=== PATIENT | female | born 1930 | race Caucasian/White ===

== ENCOUNTER 2018-03-16 15:33 | Inpatient (IN) ==
--- NOTE | 2018-03-16 15:50 | Emergency Department Note ---
Disposition Clinical Impression: Upper gastrointestinal hemorrhage Disposition: Admitted As Inpatient Time of Disposition: 18:22 General Adult HPI - General Chief complaint: ED GI Bleed Stated complaint: Poss GI Bleed Time Seen by Provider: 03/16/18 15:36 Source: EMS Mode of arrival: EMS Limitations: language barrier (non verbal ) Nursing Notes Reviewed: Yes Vital Signs Reviewed: Yes - History of Present Illness HPI Narrative: 88 year old woman with pmh significant remote CVA who is non verbal. Hx comes from EMS mostly. She had one episode of liquid stool this morning which was described as "chocolate pudding with a GI smell" and sent here from [facility] for concern of GI bleed. She was diagnosed with colitis on 03/08/18 and placed on augmentin which she still has 2 more days of. Pt Subjective Complaint: non verbal Onset (ago): hour(s) Treatments Prior to Arrival: none - Related Data Home Medications Medication Instructions Recorded Confirmed Calcium Carbonate [Calcium] 600 mg PO BID 07/20/15 10/09/15 Folic Acid 1 mg PO DAILY 07/20/15 10/09/15 LevETIRAcetam [Keppra] 5 ml PO BID 07/20/15 10/09/15 Loratadine [Claritin] 10 mg PO PRN PRN 07/20/15 10/09/15 PHENobarbital [Phenobarbital] 32.4 mg PO TID 07/20/15 10/09/15 Polyethylene Glycol 3350 [MiraLAX] 17 gm PO DAILY 07/20/15 10/09/15 Acetaminophen w/Cod 300-30 mg 1 each PO Q8HR 10/09/15 10/09/15 [Tylenol w/Codeine #3] Bisacodyl [Dulcolax] 10 mg RC DAILY 10/09/15 10/09/15 Carbamide Peroxide [Murine Ear 15 ml OT QMONTH 10/09/15 10/09/15 Drops] Hydrocortisone/Pramoxine [Analpram 30 gm RC QID 10/09/15 10/09/15 Hc 1% Cream] Magnesium Hydroxide [Milk of 400 mg PO DAILY 10/09/15 10/09/15 Magnesia] Multivitamin [Multivitamins] 1 each PO DAILY 10/09/15 10/09/15 Warfarin [Coumadin] 3.5 mg PO DAILY 10/09/15 10/09/15 cephALEXin [Keflex] 500 mg PO QID 10/09/15 10/09/15 Allergies Allergy/AdvReac Type Severity Reaction Status Date / Time Hydromorphone [From Dilaudid] Allergy Unknown See Verified 07/20/15 12:55 Comments phenytoin [From Dilantin] Allergy Unknown See Verified 07/20/15 12:55 Comments Tetracycline Allergy Unknown See Verified 07/20/15 12:55 Comments Limitations: ROS unobtainable due to patients medical condition (non verbal ) Past Medical History - Past Medical History Medical history: Reports: CVA, DVT, dementia, hyperlipidemia, seizures, other Surgical history: Reports: non-contributory Psychiatric history: Reports: no psych history - Social History Smoking Status: Never smoker Smokeless Tobacco Status: No Alcohol use: Reports: none Drug use: Reports: none Physical Exam - General Limitations: language barrier (non verbal) General appearance: alert, in no apparent distress - Head Head exam: atraumatic, normocephalic, normal inspection - Eye Eye exam: Present: normal appearance - ENT ENT exam: mucous membranes moist - Neck Neck exam: Present: trachea midline - Chest Chest inspection: Present: normal inspection, symmetric chest wall rise - Respiratory Respiratory exam: Present: normal lung sounds bilaterally - Cardiovascular Cardiovascular exam: Present: regular rate, normal rhythm, normal heart sounds, +S1, +S2 - Abdominal Exam Abdominal exam: Present: soft, Non-Tender. Absent: distention, guarding, rebound, rigidity - Neurological Exam Neurological exam: Present: alert - Skin Skin exam: Present: warm, dry, intact, normal color Course Course Narrative: Non verbal pt sent from [facility] for concern of GI bleed. Will do heme occult, cbc, and type and screen now. 1550: A pos blood on type and screen, maroon and bright red blood in stool when getting sample for heme occult. 1645: Stool occult blood positive, Hgb 10.4 (12.9 on 01/18), Hct 33.4 (39.3 on 01/18). Will admit to hospitalist service for EGD and GI bleed evaluation. 1730: Spoke to hospitalist service who accepted. Started protonix and GI consult. Vital Signs Temperature 97.9 F 03/16/18 15:45 Pulse Rate 100 03/16/18 15:45 Respiratory Rate 14 03/16/18 15:45 Blood Pressure 104/61 03/16/18 15:45 O2 Sat by Pulse Oximetry 98 03/16/18 15:45 Temperature 97.9 F 03/16/18 15:45 Pulse Rate 93 03/16/18 17:23 Respiratory Rate 16 03/16/18 17:23 Blood Pressure 100/47 03/16/18 17:23 O2 Sat by Pulse Oximetry 96 03/16/18 17:23 Oxygen Delivery Oxygen Delivery Room Air Medical Decision Making - Lab Data Lab results reviewed: Yes I reviewed the patient's lab results. Result diagrams: 03/16/18 15:50 03/16/18 15:50 Lab Results 03/16/18 03/16/18 03/16/18 Range/Units 15:50 15:50 15:50 WBC 12.1 H (4.3-11.1) K/mcL RBC 3.17 L (3.82-4.97) M/mcL Hgb 10.4 L (11.5-15.4) g/dL Hct 33.4 L (35.3-44.9) % MCV 105.4 H (83.0-100.0) fL MCH 32.8 (28.0-33.3) pg MCHC 31.1 L (31.6-35.5) g/dL RDW 12.8 (11.5-14.5) % Plt Count 262 (140-400) K/mcL MPV 11.4 (9.4-12.4) fL Immature Gran % 0.5 (0-4) % Seg Neutrophils % 85.9 % Lymphocytes % 10.1 % Monocytes % 2.7 % Eosinophils % 0.4 % Basophils % 0.4 % Neutrophils # 10.4 H (1.6-8.9) K/mcL Lymphocytes # 1.2 (0.6-4.6) K/mcL Monocytes # 0.3 (0.0-1.3) K/mcL Eosinophils # 0.1 (0.0-0.6) K/mcL Basophils # 0.1 (0.0-0.2) K/mcL Reactive Lymphocytes Present A (Not Present) PT 14.6 H (9.4-12.1) Seconds INR 1.3 Sodium (136-145) mEq/L Potassium (3.5-5.1) mEq/L Chloride (98-107) mEq/L Carbon Dioxide (23-29) mEq/L BUN (8-23) mg/dL Creatinine (0.60-1.20) mg/dL Est GFR ( Amer) (> 60) Est GFR (Non-Af Amer) (> 60) BUN/Creatinine Ratio (6-26) Glucose (70-105) mg/dL Calculated Osmolality (280-300) Calcium (8.6-10.3) mg/dL Total Bilirubin (0.3-1.0) mg/dL AST (13-39) Units/L ALT (7-52) Units/L Alkaline Phosphatase (34-104) Units/L Serum Total Protein (6.4-8.9) g/dL Albumin (3.5-5.7) g/dL Globulin (2.4-3.5) g/dL Albumin/Globulin Ratio (1.1-2.2) Stool Occult Bld Scrn (Negative) Blood Type A POSITIVE Antibody Screen POSITIVE 03/16/18 03/16/18 Range/Units 15:50 16:08 WBC (4.3-11.1) K/mcL RBC (3.82-4.97) M/mcL Hgb (11.5-15.4) g/dL Hct (35.3-44.9) % MCV (83.0-100.0) fL MCH (28.0-33.3) pg MCHC (31.6-35.5) g/dL RDW (11.5-14.5) % Plt Count (140-400) K/mcL MPV (9.4-12.4) fL Immature Gran % (0-4) % Seg Neutrophils % % Lymphocytes % % Monocytes % % Eosinophils % % Basophils % % Neutrophils # (1.6-8.9) K/mcL Lymphocytes # (0.6-4.6) K/mcL Monocytes # (0.0-1.3) K/mcL Eosinophils # (0.0-0.6) K/mcL Basophils # (0.0-0.2) K/mcL Reactive Lymphocytes (Not Present) PT (9.4-12.1) Seconds INR Sodium 141 (136-145) mEq/L Potassium 4.2 (3.5-5.1) mEq/L Chloride 105 (98-107) mEq/L Carbon Dioxide 30 H (23-29) mEq/L BUN 34 H (8-23) mg/dL Creatinine 0.83 (0.60-1.20) mg/dL Est GFR ( Amer) > 60 (> 60) Est GFR (Non-Af Amer) > 60 (> 60) BUN/Creatinine Ratio 41 H (6-26) Glucose 157 H (70-105) mg/dL Calculated Osmolality 303 H (280-300) Calcium 9.3 (8.6-10.3) mg/dL Total Bilirubin 0.2 L (0.3-1.0) mg/dL AST 16 (13-39) Units/L ALT 16 (7-52) Units/L Alkaline Phosphatase 58 (34-104) Units/L Serum Total Protein 5.9 L (6.4-8.9) g/dL Albumin 3.5 (3.5-5.7) g/dL Globulin 2.4 (2.4-3.5) g/dL Albumin/Globulin Ratio 1.5 (1.1-2.2) Stool Occult Bld Scrn Positive A (Negative) Blood Type Antibody Screen Attestation Statement - Attestation Attestation: I did see the patient is spoke with her and examined her. Does have a GI bleed with red stool from below which is Hemoccult positive. Patient is anticoagulated. Is admitted to the hospital. Does have anemia which is more pronounced in the past. I did review her EKG showing sinus tachycardia with rate of [address] changes but without significant arrhythmia. The case is discussed with the hospitalist who does except the patient for admission 1752 I examined this patient and my medical decision-making was reviewed with the AIR CREW MEMBER/PA/Advanced Practice Nurse/Resident Physician. I agree with the documented findings, disposition and treatment plan as described except to the extent set forth below..
[2018-03-16 16:17] LABS: Basophils # 0.1 K/mcL (0.0-0.2); Basophils % 0.4 %; Eosinophils # 0.1 K/mcL (0.0-0.6); Eosinophils % 0.4 %; Hematocrit 33.4 % (35.3-44.9); Hemoglobin 10.4 g/dL (11.5-15.4); Immature Granulocytes % 0.5 % (0-4); Lymphocytes # 1.2 K/mcL (0.6-4.6); Lymphocytes % 10.1 %; Mean Corpuscular HGB Conc 31.1 g/dL (31.6-35.5); Mean Corpuscular Hemoglobin 32.8 pg (28.0-33.3); Mean Corpuscular Volume 105.4 fL (83.0-100.0); Mean Platelet Volume 11.4 fL (9.4-12.4); Monocytes # 0.3 K/mcL (0.0-1.3); Monocytes % 2.7 %; Neutrophils # 10.4 K/mcL (1.6-8.9); Platelet Count 262 K/mcL (140-400); Red Blood Count 3.17 M/mcL (3.82-4.97); Red Cell Distribution Width 12.8 % (11.5-14.5); Segmented Neutrophils % 85.9 %
[2018-03-16 16:38] LABS: Reactive Lymphocytes Present (Not Present)
[2018-03-16] MEDS ORDERED: Pantoprazole 40 MG VIAL IVP ONE (17:06)
[2018-03-16] MEDS ORDERED: Naloxone 0.4 MG/ML INJ IVP PRN (17:37)
[2018-03-16] MEDS ORDERED: *HR* Phytonadione 10 MG/ML AMPUL SQ ONE (17:41)
[2018-03-16] MEDS ORDERED: Ondansetron 4 MG/2 ML VIAL IVP PRN (17:42)
[2018-03-16] MEDS ORDERED: Isovue-370 500 ML INFUS..BTL IV ONE (17:43)
[2018-03-16] MEDS ORDERED: D5% in Water 1,000 ML IVC PRN (17:50)
[2018-03-16] MEDS ORDERED: *HR* Dextrose 50 % in Water (Syg) 50 ML SYRINGE IVP PRN (17:50)
[2018-03-16] MEDS ORDERED: Dextrose Gel 15 GM/37.5 ML TUBE PO PRN ×2 (17:50)
[2018-03-16 17:56] LABS: Alanine Aminotransferase 16 Units/L (7-52); Albumin 3.5 g/dL (3.5-5.7); Albumin/Globulin Ratio 1.5 (1.1-2.2); Alkaline Phosphatase 58 Units/L (34-104); Aspartate Amino Transferase 16 Units/L (13-39); BUN/Creatinine Ratio 41 (6-26); Bilirubin,Total 0.2 mg/dL (0.3-1.0); Blood Urea Nitrogen 34 mg/dL (8-23); Calcium 9.3 mg/dL (8.6-10.3); Carbon Dioxide 30 mEq/L (23-29); Chloride 105 mEq/L (98-107); Globulin 2.4 g/dL (2.4-3.5); Glucose 157 mg/dL (70-105); Osmolality,Calculated 303 (280-300); Potassium 4.2 mEq/L (3.5-5.1); Sodium 141 mEq/L (136-145); Total Protein 5.9 g/dL (6.4-8.9); eGFR For Non-African Americans > 60 (> 60)
[2018-03-16 17:58] LABS: INR 1.3; Prothrombin Time 14.6 Seconds (9.4-12.1)
--- NOTE | 2018-03-16 17:59 | Internal Med History&Physical ---
<Jayne Felix - Last Filed: 03/16/18 18:24> Date of Encounter: 03/16/18 Time of Encounter: 17:57 Internal Medicine - H&P: HPI Admitted From: Long-term Nursing Facility Plans for Post Hospital Care: Transfer Audiology Doctor Care History of present illness: Ms. Almeida is a 88 year old female with pmh significant remote CVA, seizure, and chronic DVT and on Eliquis who is non verbal. Hx comes from EMS mostly. She had one episode of liquid stool this morning which was described as "chocolate pudding with a GI smell" and sent here from [facility] for concern of GI bleed. She was diagnosed with colitis on 03/08/18 and placed on augmentin which she still has 2 more days of. Upon arrival to the ED, patient blood pressure was notably low. Labs revealed H/H 10.4/33.4, INR 1.3, elevated BUN, positive guaiac stool. Surgery was consulted. Patient will be admitted as observation for further evaluation and management. Past Med Surg Social Fam HX - Past Medical History Medical history: CVA, DVT, dementia, hyperlipidemia, seizures, other Additional medical history: hemiplg flw cerebral infarct, aphasia, benign neoplasm of meninges Psychiatric history: no psych history - Past Surgical History Surgical History: non-contributory Additional surgical history: brain tumors removed; non-malignant - Social History Smoking Status: Never smoker Smokeless Tobacco Status: No Alcohol use: none Drug use: none Internal Medicine - H&P: Meds RX: Calcium Carbonate [Calcium] 600 mg PO BID 07/20/15 [History] RX: Folic Acid 1 mg PO DAILY 07/20/15 [History] RX: PHENobarbital [Phenobarbital] 32.4 mg PO TID 07/20/15 [History] Bisacodyl [Dulcolax] 10 mg RC DAILY 10/09/15 [History] Magnesium Hydroxide [Milk of Magnesia] 400 mg PO DAILY PRN 10/09/15 [History] Multivitamin [Multivitamins] 1 each PO DAILY 10/09/15 [History] Acetaminophen [Non-Aspirin] 650 mg PO Q6H 03/16/18 [History] Amoxicillin/Clavulanate [Augmentin] 875 mg PO BIDWM 03/16/18 [History] Apixaban [Eliquis] 2.5 mg PO BID 03/16/18 [History] Guaifenesin [Tussin] 100 mg PO Q4H PRN 03/16/18 [History] Hydrocortisone/Pramoxine [Analpram Hc 1% Cream] 30 gm TP QID 03/16/18 [History] Lactulose 30 ml PO DAILY 03/16/18 [History] LevETIRAcetam [Keppra] 500 mg PO BID 03/16/18 [History] Polyethylene Glycol 3350 [MiraLAX] 17 gm PO DAILY PRN 03/16/18 [History] RX: Amlodipine Besylate 2.5 mg PO DAILY 03/16/18 [History] Sennosides/Docusate Sodium [Docusate Sodium-Senna Tablet] 1 tab PO BID 03/16/18 [History] Allergy/AdvReac Type Severity Reaction Status Date / Time Hydromorphone [From Dilaudid] Allergy Unknown See Verified 03/16/18 19:14 Comments phenytoin [From Dilantin] Allergy Unknown See Verified 03/16/18 19:14 Comments Tetracycline Allergy Unknown See Verified 03/16/18 19:14 Comments All Systems PM: A 10-system review of systems was performed and is negative for pertinent findings except as documented above in the HPI. Review of systems: REVIEW OF SYSTEMS: unable to obtain due to pt mental status. - Constitutional Vitals: Temp Pulse Resp BP Pulse Ox 97.9 F 93 16 100/47 96 03/16/18 15:45 03/16/18 17:23 03/16/18 17:23 03/16/18 17:23 03/16/18 17:23 General appearance: Present: A&O X 1 Exam: PHYSICAL EXAMINATION: GENERAL APPEARANCE: The patient is alert, oriented and in no acute distress. HEENT: Head is normocephalic. The sinuses are nontender. Pupils are equal and reactive. The nares are patent. Oropharynx clear without lesions. NECK: Supple without lymphadenopathy. HEART: Regular rate and rhythm. LUNGS: No crackles or wheezes are heard. ABDOMEN: Soft, nontender, nondistended with good bowel sounds heard. Inguinal area is normal. EXTREMITIES: 1+ pitting edema BLE. NEUROLOGICAL: Gross nonfocal. SKIN: Warm and dry without any rash. Internal Med - H&P Results - Labs CBC & Chem 7: 03/16/18 15:50 03/16/18 15:50 Labs: Short CBC 03/16/18 Range/Units 15:50 WBC 12.1 H (4.3-11.1) K/mcL Hgb 10.4 L (11.5-15.4) g/dL Hct 33.4 L (35.3-44.9) % Plt Count 262 (140-400) K/mcL Neutrophils # 10.4 H (1.6-8.9) K/mcL BMP 03/16/18 15:50 Sodium 141 Potassium 4.2 Chloride 105 Carbon Dioxide 30 H BUN 34 H Creatinine 0.83 Glucose 157 H Calcium 9.3 Liver Function 03/16/18 Range/Units 15:50 Total Bilirubin 0.2 L (0.3-1.0) mg/dL AST 16 (13-39) Units/L ALT 16 (7-52) Units/L Alkaline Phosphatase 58 (34-104) Units/L Albumin 3.5 (3.5-5.7) g/dL - Assessment and plan (1) GI bleeding Current Visit: Yes Status: Acute Assessment and plan: 88-year-old female with past medical history of DVT on Coumadin/Eliquis, status post brain surgery, seizure disorder, and recent colitis presented with a reported bloody stool. Guaiac stool is positive. - H/H 10.4/33.4 upon arrival, vital signs were stable. INR 1.3. Type and cross ordered, we will continue cycle H/H every 6 hours. Transfuse if hemoglobin less than 7.0. - Patient had recent infectious colitis, she was placed on Augmentin, will change oral antibiotics to IV. - Start IV PPI. May give IV fluid if blood pressure drops. - Surgery consult. Qualifiers: GI bleed type/associated pathology: unspecified gastrointestinal hemorrhage type Qualified Code(s): K92.2 - Gastrointestinal hemorrhage, unspecified (2) Seizure disorder Current Visit: No Status: Chronic Assessment and plan: We will continue home medication phenobarbital and Keppra. (3) DVT (deep venous thrombosis) Current Visit: No Status: Chronic Assessment and plan: Hold Eliquis due to GI bleeding. Qualifiers: DVT location: upper extremity Affected thrombotic vein of extremity: unspecified vein of extremity Chronicity: chronic Laterality: unspecified laterality Qualified Code(s): I82.729 - Chronic embolism and thrombosis of deep veins of unspecified upper extremity (4) DVT prophylaxis Current Visit: Yes Status: Acute Assessment and plan: No SCDs due to unknown status of DVT. No heparin due to GI bleeding. (5) Colitis Current Visit: No Status: Chronic Assessment and plan: Change oral abx to IV. GI consult. Surgery consult. - Time Spent With Patient Total time spent is greater than 50% in coordination of care (as documented) at patient's floor/unit and/or counseling patient: Greater than 35 minutes <Jesus Gilbert Y - Last Filed: 03/17/18 07:21> Internal Medicine - H&P: HPI History of present illness: Ms. Almeida is a 88 year old female All Systems PM: A 10-system review of systems was performed and is negative for pertinent findings except as documented above in the HPI. - Constitutional Vitals: Temp Pulse Resp BP Pulse Ox 98.2 F 93 16 103/65 91 03/17/18 06:32 03/17/18 06:32 03/17/18 06:32 03/17/18 06:32 03/17/18 06:32 Internal Med - H&P Results - Labs CBC & Chem 7: 03/17/18 05:54 03/16/18 15:50 Labs: Short CBC 03/16/18 03/16/18 03/17/18 Range/Units 15:50 18:15 00:16 WBC 12.1 H 10.2 9.8 (4.3-11.1) K/mcL Hgb 10.4 L 9.6 L 9.3 L (11.5-15.4) g/dL Hct 33.4 L 30.6 L 28.6 L (35.3-44.9) % Plt Count 262 235 235 (140-400) K/mcL Neutrophils # 10.4 H 7.6 6.1 (1.6-8.9) K/mcL 03/17/18 Range/Units 05:54 WBC 8.3 (4.3-11.1) K/mcL Hgb 8.5 L (11.5-15.4) g/dL Hct 25.9 L (35.3-44.9) % Plt Count 221 (140-400) K/mcL Neutrophils # 5.7 (1.6-8.9) K/mcL BMP 03/16/18 15:50 Sodium 141 Potassium 4.2 Chloride 105 Carbon Dioxide 30 H BUN 34 H Creatinine 0.83 Glucose 157 H Calcium 9.3 Liver Function 03/16/18 Range/Units 15:50 Total Bilirubin 0.2 L (0.3-1.0) mg/dL AST 16 (13-39) Units/L ALT 16 (7-52) Units/L Alkaline Phosphatase 58 (34-104) Units/L Albumin 3.5 (3.5-5.7) g/dL Urine 03/17/18 Range/Units 00:15 Urine Color Dark Yellow (Yellow) Urine Clarity Clear (Clear) Urine pH 5.5 (5.0-8.0) pH Units Ur Specific [place] > 1.030 H (1.010-1.025) Urine Protein Negative (Neg-Trace) mg/dL Urine Glucose (UA) Normal (Normal) mg/dL - Impressions ITS Impressions Abdomen/Pelvis CT 03/16/18 17:43 IMPRESSION: Hyperdense material within the colon near splenic flexure. Finding could represent ingested contents or possibly contrast extravasation given the history of GI bleeding. Unfortunately, this is not definitively characterized as a noncontrast scan was not performed at the same time as this study. If the patient is showing clinical signs of active GI bleeding, this could be further evaluated with a GI bleed protocol CT angiogram (including noncontrast, arterial phase, and delayed phase images) or a tagged red blood cell scan. Fecal impaction with evidence of stercoral colitis. Diverticulosis. Intermediate density lesion in the left kidney may represent a solid lesion or a cyst with complex contents. Finding could be further characterized with renal ultrasound or renal mass protocol CT or MRI. IVC filter with multiple legs penetrating as detailed above. Findings were discussed with Dr. Felix at 9:43 pm on 03/16/2018. D/ / 03/16/2018 21:47:04 Gian Wilcox MD / [email or web address] Interpreting Provider: Gian Wilcox MD - Assessment and plan (1) DVT (deep venous thrombosis) Current Visit: No Status: Chronic Qualifiers: DVT location: upper extremity Affected thrombotic vein of extremity: unspecified vein of extremity Chronicity: chronic Laterality: unspecified laterality Qualified Code(s): I82.729 - Chronic embolism and thrombosis of deep veins of unspecified upper extremity (2) Seizure disorder Current Visit: No Status: Chronic (3) DVT prophylaxis Current Visit: Yes Status: Acute (4) GI bleeding Current Visit: Yes Status: Acute Qualifiers: GI bleed type/associated pathology: unspecified gastrointestinal hemorrhage type Qualified Code(s): K92.2 - Gastrointestinal hemorrhage, unspecified (5) Colitis Current Visit: No Status: Chronic - Time Spent With Patient Total time spent is greater than 50% in coordination of care (as documented) at patient's floor/unit and/or counseling patient: - Attending Attestation Patient and evaluated. Physical exam performed. Discussed with MOTORCYCLE SERVICE TECHNICIAN. Agree with documented note and plan of care
[2018-03-16 18:27] LABS: Basophils % 0.4 %; Eosinophils # 0.1 K/mcL (0.0-0.6); Eosinophils % 0.5 %; Hematocrit 30.6 % (35.3-44.9); Hemoglobin 9.6 g/dL (11.5-15.4); Immature Granulocytes % 0.4 % (0-4); Lymphocytes # 1.9 K/mcL (0.6-4.6); Lymphocytes % 18.8 %; Mean Corpuscular HGB Conc 31.4 g/dL (31.6-35.5); Mean Corpuscular Volume 105.2 fL (83.0-100.0); Mean Platelet Volume 11.4 fL (9.4-12.4); Monocytes # 0.5 K/mcL (0.0-1.3); Monocytes % 5.3 %; Neutrophils # 7.6 K/mcL (1.6-8.9); Platelet Count 235 K/mcL (140-400); Red Blood Count 2.91 M/mcL (3.82-4.97); Red Cell Distribution Width 12.7 % (11.5-14.5); Segmented Neutrophils % 74.6 %
[2018-03-16] MEDS ORDERED: MOM Conc 10 ML UD.LIQ PO PRN ×2 (19:40→21:00)
[2018-03-16] MEDS ORDERED: GuaiFENesin Liq 200 MG/10 ML UDC PO PRN (19:40)
[2018-03-16] MEDS: Pantoprazole 40 MG VIAL IVP SCH (20:37)
[2018-03-16] MEDS ORDERED: LEVETIRACETAM PO SCH (21:00)
[2018-03-16] MEDS: levETIRAcetam 250 MG TABLET PO SCH (22:44)
[2018-03-16] MEDS: PHENobarbital 32.4 MG TABLET PO SCH (22:45)
[2018-03-16] MEDS: Insulin LISPRO 300 UNITS/3 ML VIAL SQ SCH (22:54)
[2018-03-16] MEDS: D5% in 0.9% NACL 1,000 ML IVC SCH (22:54)
[2018-03-16] MEDS: HYDROCORTISONE TP SCH (23:02)
[2018-03-16] MEDS: PRAMOXINE TP SCH (23:02)
[2018-03-16] MEDS: MetroNIDAZOLE 500 MG/100 ML 500 MG/100 ML BAG IVPB SCH (23:19)
[2018-03-17] MEDS: Insulin LISPRO 300 UNITS/3 ML VIAL SQ SCH ×4 (00:19→17:56)
[2018-03-17 00:36] LABS: Bilirubin,Urine Small (Negative); Blood,Urine Negative (Negative); Clarity,Urine Clear (Clear); Color,Urine Dark Yellow (Yellow); Glucose,Urine (UA) Normal (Normal); Ketones,Urine Trace mg/dL (Negative); Leukocyte Esterase,Urine Small (Negative); Nitrite,Urine Negative (Negative); PH,Urine 5.5 pH Units (5.0-8.0); Protein,Urine Negative (Neg-Trace); Specific Gravity,Urine > 1.030 (1.010-1.025); Urobilinogen,Urine Normal (Normal)
[2018-03-17 00:39] LABS: Bacteria,Urine None Seen per hpf (None-Few); Hyaline Casts,Urine Few per lpf (None-Few); RBC,Urine 0-3 per hpf (0-3); Squamous Epithelial Cell,Urine Many per lpf (None-Few)
[2018-03-17 00:42] LABS: Basophils # 0.1 K/mcL (0.0-0.2); Basophils % 0.6 %; Eosinophils # 0.2 K/mcL (0.0-0.6); Eosinophils % 1.5 %; Hematocrit 28.6 % (35.3-44.9); Hemoglobin 9.3 g/dL (11.5-15.4); Immature Granulocytes % 0.4 % (0-4); Lymphocytes # 2.7 K/mcL (0.6-4.6); Lymphocytes % 27.9 %; Mean Corpuscular HGB Conc 32.5 g/dL (31.6-35.5); Mean Corpuscular Hemoglobin 33.2 pg (28.0-33.3); Mean Corpuscular Volume 102.1 fL (83.0-100.0); Mean Platelet Volume 11.3 fL (9.4-12.4); Monocytes # 0.7 K/mcL (0.0-1.3); Monocytes % 7.3 %; Neutrophils # 6.1 K/mcL (1.6-8.9); Platelet Count 235 K/mcL (140-400); Red Cell Distribution Width 12.8 % (11.5-14.5); Segmented Neutrophils % 62.3 %
[2018-03-17 01:01] LABS: Magnesium 1.8 mg/dL (1.6-2.6); Phosphorous 3.1 mg/dL (2.7-4.5)
[2018-03-17] MEDS: Pantoprazole 40 MG VIAL IVP SCH ×2 (05:29→18:13)
[2018-03-17 06:02] LABS: Basophils % 0.5 %; Eosinophils # 0.1 K/mcL (0.0-0.6); Eosinophils % 1.6 %; Hematocrit 25.9 % (35.3-44.9); Hemoglobin 8.5 g/dL (11.5-15.4); Immature Granulocytes % 0.4 % (0-4); Lymphocytes # 1.9 K/mcL (0.6-4.6); Lymphocytes % 22.5 %; Mean Corpuscular HGB Conc 32.8 g/dL (31.6-35.5); Mean Corpuscular Hemoglobin 33.3 pg (28.0-33.3); Mean Corpuscular Volume 101.6 fL (83.0-100.0); Monocytes # 0.5 K/mcL (0.0-1.3); Monocytes % 6.5 %; Neutrophils # 5.7 K/mcL (1.6-8.9); Platelet Count 221 K/mcL (140-400); Red Blood Count 2.55 M/mcL (3.82-4.97); Red Cell Distribution Width 12.9 % (11.5-14.5); Segmented Neutrophils % 68.5 %
[2018-03-17] MEDS: MetroNIDAZOLE 500 MG/100 ML 500 MG/100 ML BAG IVPB SCH ×2 (08:13→15:34)
[2018-03-17] MEDS: PHENobarbital 32.4 MG TABLET PO SCH ×3 (08:17→21:42)
[2018-03-17] MEDS: levETIRAcetam 250 MG TABLET PO SCH ×2 (08:17→21:41)
[2018-03-17] MEDS: Folic Acid 1 MG TABLET PO SCH (08:20)
[2018-03-17] MEDS: Multivit/Ca/Min/Fe/FA 1 TAB TABLET PO SCH (08:20)
[2018-03-17] MEDS: HYDROCORTISONE TP SCH ×3 (09:53→17:56)
[2018-03-17] MEDS: PRAMOXINE TP SCH ×3 (09:53→17:56)
[2018-03-17 12:08] LABS: Basophils # 0.1 K/mcL (0.0-0.2); Basophils % 0.7 %; Eosinophils # 0.1 K/mcL (0.0-0.6); Hematocrit 25.5 % (35.3-44.9); Hemoglobin 8.4 g/dL (11.5-15.4); Immature Granulocytes % 0.4 % (0-4); Lymphocytes # 1.9 K/mcL (0.6-4.6); Lymphocytes % 27.4 %; Mean Corpuscular HGB Conc 32.9 g/dL (31.6-35.5); Mean Corpuscular Hemoglobin 33.6 pg (28.0-33.3); Mean Platelet Volume 11.7 fL (9.4-12.4); Monocytes # 0.6 K/mcL (0.0-1.3); Monocytes % 8.9 %; Neutrophils # 4.2 K/mcL (1.6-8.9); Platelet Count 208 K/mcL (140-400); Red Cell Distribution Width 12.8 % (11.5-14.5); Segmented Neutrophils % 60.6 %
--- NOTE | 2018-03-17 13:10 | Internal Med Progress Note ---
Hospitalist Progress Note - Encounter Date of Encounter: 03/17/18 Time of Encounter: 13:05 - Subjective Interval History: Pt has history of CVA and is a poor historian. No acute changes during the night per nurse. - Exam Vitals: Temp Pulse Resp BP Pulse Ox 98.7 F 91 14 115/61 95 03/17/18 10:08 03/17/18 10:08 03/17/18 10:08 03/17/18 10:08 03/17/18 10:08 Exam: PHYSICAL EXAMINATION: GENERAL APPEARANCE: The patient is alert, oriented and in no acute distress. HEENT: Head is normocephalic. The sinuses are nontender. Pupils are equal and reactive. The nares are patent. Oropharynx clear without lesions. NECK: Supple without lymphadenopathy. HEART: Regular rate and rhythm. LUNGS: No crackles or wheezes are heard. ABDOMEN: Soft, nontender, nondistended with good bowel sounds heard. Inguinal area is normal. EXTREMITIES: 1+ pitting edema BLE. NEUROLOGICAL: Gross nonfocal. SKIN: Warm and dry without any rash. - Assessment and Plan (1) GI bleeding Current Visit: Yes Status: Acute Assessment and Plan: 88-year-old female with past medical history of DVT on Eliquis, status post brain surgery, seizure disorder, and recent colitis presented with a reported bloody stool. Guaiac stool is positive. - H/H 10.4/33.4 upon arrival now 8.4/25.5. Vital signs were stable. INR 1.3. - Type and cross ordered, we will continue cycle H/H every 6 hours. - Will transfuse if hemoglobin less than 7.0. - Patient had recent infectious colitis, she was placed on Augmentin, will change oral antibiotics to IV. - Started IV PPI. May give IV fluid if blood pressure drops. - Surgery consulted to see. (2) Seizure disorder Current Visit: No Status: Chronic Assessment and Plan: We will continue home medication phenobarbital and Keppra. (3) Colitis Current Visit: No Status: Chronic Assessment and Plan: Change oral abx to IV. GI consult. Surgery consult. DVT Prophylaxis: Hold Eliquis due to GI bleeding. - Summary of Assessment and Plan Summary of Assessment and Plan: Ms. Almeida is a 88 year old female with pmh significant remote CVA, seizure, and chronic DVT and on Eliquis who is non verbal. Hx comes from EMS mostly. She had one episode of liquid stool this morning which was described as "chocolate pudding with a GI smell" and sent here from [facility] for concern of GI bleed. She was diagnosed with colitis on 03/08/18 and placed on augmentin which she still has 2 more days of. Upon arrival to the ED, patient blood pressure was notably low. Labs revealed H/H 10.4/33.4, INR 1.3, elevated BUN, positive guaiac stool. Surgery was consulted. Patient will be admitted as observation for further evaluation and management. - Time Spent with Patient Total time spent is greater than 50% in coordination of care (as documented) at patient's floor/unit and/or counseling patient: less than 15 minutes Plan of Care Discussed with: patient Internal Medicine: Result - Labs CBC & Chem 7: 03/17/18 11:42 03/16/18 15:50 Labs: Short CBC 03/16/18 03/16/18 03/17/18 Range/Units 15:50 18:15 00:16 WBC 12.1 H 10.2 9.8 (4.3-11.1) K/mcL Hgb 10.4 L 9.6 L 9.3 L (11.5-15.4) g/dL Hct 33.4 L 30.6 L 28.6 L (35.3-44.9) % Plt Count 262 235 235 (140-400) K/mcL Neutrophils # 10.4 H 7.6 6.1 (1.6-8.9) K/mcL 03/17/18 03/17/18 Range/Units 05:54 11:42 WBC 8.3 6.9 (4.3-11.1) K/mcL Hgb 8.5 L 8.4 L (11.5-15.4) g/dL Hct 25.9 L 25.5 L (35.3-44.9) % Plt Count 221 208 (140-400) K/mcL Neutrophils # 5.7 4.2 (1.6-8.9) K/mcL BMP 03/16/18 15:50 Sodium 141 Potassium 4.2 Chloride 105 Carbon Dioxide 30 H BUN 34 H Creatinine 0.83 Glucose 157 H Calcium 9.3 Liver Function 03/16/18 Range/Units 15:50 Total Bilirubin 0.2 L (0.3-1.0) mg/dL AST 16 (13-39) Units/L ALT 16 (7-52) Units/L Alkaline Phosphatase 58 (34-104) Units/L Albumin 3.5 (3.5-5.7) g/dL Urine 03/17/18 Range/Units 00:15 Urine Color Dark Yellow (Yellow) Urine Clarity Clear (Clear) Urine pH 5.5 (5.0-8.0) pH Units Ur Specific [place] > 1.030 H (1.010-1.025) Urine Protein Negative (Neg-Trace) mg/dL Urine Glucose (UA) Normal (Normal) mg/dL - ABG Interpretation ABG results: PT/INR, D-dimer PT 14.6 Seconds (9.4-12.1) H 03/16/18 15:50 - Impressions Impressions Abdomen/Pelvis CT 03/16/18 17:43 IMPRESSION: Hyperdense material within the colon near splenic flexure. Finding could represent ingested contents or possibly contrast extravasation given the history of GI bleeding. Unfortunately, this is not definitively characterized as a noncontrast scan was not performed at the same time as this study. If the patient is showing clinical signs of active GI bleeding, this could be further evaluated with a GI bleed protocol CT angiogram (including noncontrast, arterial phase, and delayed phase images) or a tagged red blood cell scan. Fecal impaction with evidence of stercoral colitis. Diverticulosis. Intermediate density lesion in the left kidney may represent a solid lesion or a cyst with complex contents. Finding could be further characterized with renal ultrasound or renal mass protocol CT or MRI. IVC filter with multiple legs penetrating as detailed above. Findings were discussed with Dr. Felix at 9:43 pm on 03/16/2018. D/ / 03/16/2018 21:47:04 Gian Wilcox MD / sam Interpreting Provider: Gian Wilcox MD Consult Discharge Plan - Plan Referrals: NONE,PCP [Primary Care Provider] - (1) GI bleeding Qualifiers: GI bleed type/associated pathology: unspecified gastrointestinal hemorrhage type Qualified Code(s): K92.2 - Gastrointestinal hemorrhage, unspecified
[2018-03-17] MEDS: D5% in 0.9% NACL 1,000 ML IVC SCH (13:26)
[2018-03-17 18:28] LABS: Basophils # 0.1 K/mcL (0.0-0.2); Basophils % 0.7 %; Eosinophils # 0.3 K/mcL (0.0-0.6); Eosinophils % 3.4 %; Hematocrit 27.6 % (35.3-44.9); Immature Granulocytes % 0.3 % (0-4); Lymphocytes # 2.3 K/mcL (0.6-4.6); Lymphocytes % 30.9 %; Mean Corpuscular HGB Conc 32.6 g/dL (31.6-35.5); Mean Corpuscular Hemoglobin 33.6 pg (28.0-33.3); Monocytes # 0.8 K/mcL (0.0-1.3); Monocytes % 10.7 %; Neutrophils # 3.9 K/mcL (1.6-8.9); Platelet Count 240 K/mcL (140-400); Red Blood Count 2.68 M/mcL (3.82-4.97)
--- NOTE | 2018-03-17 20:55 | General Surgery Consult Note ---
Date of Encounter: 03/17/18 Time of Encounter: 20:47 Assessment and Plan (1) GI bleeding Current Visit: Yes Status: Acute 88F with mulitple comorbidities with LGIB; HDS CLD in AM bowel prep trend h/h plan for EGD, colonoscopy on 03/19 Qualifiers: GI bleed type/associated pathology: unspecified gastrointestinal hemorrhage t ype Qualified Code(s): K92.2 - Gastrointestinal hemorrhage, unspecified History of Present Illness Consult date: 03/17/18 Reason for consult: other (lower GI bleeding) History of present illness: 88F with complex PMH including multiple brain surgeries (three), multiple strokes and seizures, 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 Unknown how many prior episodes there have been nor is it clear if there have been prior colonoscopies. The family is unfortunately able to offer more information. Surgery was consulted for management recommendations. Past Med Surg Social Fam HX - Past Medical History Medical history: CVA, DVT, dementia, hyperlipidemia, seizures, other Additional medical history: hemiplg flw cerebral infarct, aphasia, benign neoplasm of meninges Psychiatric history: no psych history - Past Surgical History Surgical History: non-contributory Additional surgical history: brain tumors removed; non-malignant - Social History Smoking Status: Never smoker Smokeless Tobacco Status: No Alcohol use: none Drug use: none - Additional Family History Additional family history: non contributory Medications and Allergies Calcium Carbonate [Calcium] 600 mg PO BID 07/20/15 [History] Folic Acid 1 mg PO DAILY 07/20/15 [History] PHENobarbital [Phenobarbital] 32.4 mg PO TID 07/20/15 [History] Bisacodyl [Dulcolax] 10 mg RC DAILY 10/09/15 [History] Magnesium Hydroxide [Milk of Magnesia] 400 mg PO DAILY PRN 10/09/15 [History] Multivitamin [Multivitamins] 1 each PO DAILY 10/09/15 [History] Acetaminophen [Non-Aspirin] 650 mg PO Q6H 03/16/18 [History] Amlodipine Besylate 2.5 mg PO DAILY 03/16/18 [History] Amoxicillin/Clavulanate [Augmentin] 875 mg PO BIDWM 03/16/18 [History] Apixaban [Eliquis] 2.5 mg PO BID 03/16/18 [History] Guaifenesin [Tussin] 100 mg PO Q4H PRN 03/16/18 [History] Hydrocortisone/Pramoxine [Analpram Hc 1% Cream] 30 gm TP QID 03/16/18 [History] Lactulose 30 ml PO DAILY 03/16/18 [History] LevETIRAcetam [Keppra] 500 mg PO BID 03/16/18 [History] Polyethylene Glycol 3350 [MiraLAX] 17 gm PO DAILY PRN 03/16/18 [History] Sennosides/Docusate Sodium [Docusate Sodium-Senna Tablet] 1 tab PO BID 03/16/18 [History] Allergy/AdvReac Type Severity Reaction Status Date / Time Hydromorphone [From Dilaudid] Allergy Unknown See Verified 03/16/18 19:14 Comments phenytoin [From Dilantin] Allergy Unknown See Verified 03/16/18 19:14 Comments Tetracycline Allergy Unknown See Verified 03/16/18 19:14 Comments Review of Systems All systems PM: 12 point ROS negative besides findings in the HPI General Surgery Exam Initial Vital Signs Temp Pulse Resp BP Pulse Ox 97.9 F 100 14 104/61 98 03/16/18 15:45 03/16/18 15:45 03/16/18 15:45 03/16/18 15:45 03/16/18 15:45 - General physical appearance no distress - Eyes normal ocular movement - ENT normocephalic - Neck no lymphadectomy - Respiratory normal expansion, normal respiratory effort - Cardiovascular Cardiovascular exam: Present: RRR - Abdomen Abdomen general surgery: Present: soft, non tender - Integumentary Integumentary general surgery: Present: warm and dry - Neurologic Present: other (non communicative) - Musculoskeletal Present: normal posture Exam Initial Vital Signs Temp Pulse Resp BP Pulse Ox 97.9 F 100 14 104/61 98 03/16/18 15:45 03/16/18 15:45 03/16/18 15:45 03/16/18 15:45 03/16/18 15:45 Results - Labs 03/17/18 18:18 03/16/18 15:50 Abnormal lab results RBC 2.68 M/mcL (3.82-4.97) L 03/17/18 18:18 Hgb 9.0 g/dL (11.5-15.4) L 03/17/18 18:18 Hct 27.6 % (35.3-44.9) L 03/17/18 18:18 MCV 103.0 fL (83.0-100.0) H 03/17/18 18:18 MCH 33.6 pg (28.0-33.3) H 03/17/18 18:18 Reactive Lymphocytes Present (Not Present) A 03/16/18 15:50 PT 14.6 Seconds (9.4-12.1) H 03/16/18 15:50 Carbon Dioxide 30 mEq/L (23-29) H 03/16/18 15:50 BUN 34 mg/dL (8-23) H 03/16/18 15:50 BUN/Creatinine Ratio 41 (6-26) H 03/16/18 15:50 Glucose 157 mg/dL (70-105) H 03/16/18 15:50 POC Glucose 115 mg/dL (70-99) H 03/17/18 00:17 Calculated Osmolality 303 (280-300) H 03/16/18 15:50 Total Bilirubin 0.2 mg/dL (0.3-1.0) L 03/16/18 15:50 Serum Total Protein 5.9 g/dL (6.4-8.9) L 03/16/18 15:50 Ur Specific [place] > 1.030 (1.010-1.025) H 03/17/18 00:15 Urine Ketones Trace mg/dL (Negative) H 03/17/18 00:15 Urine Bilirubin Small (Negative) H 03/17/18 00:15 Ur Leukocyte Esterase Small (Negative) H 03/17/18 00:15 Urine Microscopic WBC 5-15 per hpf (0-3) H 03/17/18 00:15 Ur Squamous Epith Cells Many per lpf (None-Few) H 03/17/18 00:15 Stool Occult Bld Scrn Positive (Negative) A 03/16/18 16:08 Calcium panel 03/17/18 Range/Units 00:16 Phosphorus 3.1 (2.7-4.5) mg/dL All other labs normal. Consult Discharge Plan - Plan Referrals: NONE,PCP [Primary Care Provider] -
[2018-03-18 00:17] LABS: Basophils % 0.6 %; Eosinophils # 0.2 K/mcL (0.0-0.6); Eosinophils % 3.5 %; Hematocrit 24.9 % (35.3-44.9); Hemoglobin 8.1 g/dL (11.5-15.4); Immature Granulocytes % 0.3 % (0-4); Lymphocytes % 29.4 %; Mean Corpuscular HGB Conc 32.5 g/dL (31.6-35.5); Mean Corpuscular Hemoglobin 33.5 pg (28.0-33.3); Mean Corpuscular Volume 102.9 fL (83.0-100.0); Monocytes # 0.7 K/mcL (0.0-1.3); Monocytes % 10.5 %; Neutrophils # 3.8 K/mcL (1.6-8.9); Platelet Count 217 K/mcL (140-400); Red Blood Count 2.42 M/mcL (3.82-4.97); Red Cell Distribution Width 12.7 % (11.5-14.5); Segmented Neutrophils % 55.7 %
[2018-03-18] MEDS: MetroNIDAZOLE 500 MG/100 ML 500 MG/100 ML BAG IVPB SCH ×3 (00:30→17:34)
[2018-03-18] MEDS: D5% in 0.9% NACL 1,000 ML IVC SCH ×3 (02:27→17:40)
[2018-03-18] MEDS: HYDROCORTISONE TP SCH (02:29)
[2018-03-18] MEDS: PRAMOXINE TP SCH (02:29)
[2018-03-18] MEDS: Pantoprazole 40 MG VIAL IVP SCH ×2 (05:30→17:43)
[2018-03-18] MEDS: Insulin LISPRO 300 UNITS/3 ML VIAL SQ SCH ×4 (07:52→17:43)
[2018-03-18] MEDS: Folic Acid 1 MG TABLET PO SCH (10:18)
[2018-03-18] MEDS: PHENobarbital 32.4 MG TABLET PO SCH ×3 (10:18→21:15)
[2018-03-18] MEDS: levETIRAcetam 250 MG TABLET PO SCH ×2 (10:18→21:14)
[2018-03-18] MEDS: Multivit/Ca/Min/Fe/FA 1 TAB TABLET PO SCH (10:18)
--- NOTE | 2018-03-18 11:09 | General Surgery Progress Note ---
Date of Encounter: 03/18/18 Time of Encounter: 11:08 - Assessment and Plan (1) GI bleeding Current Visit: Yes Status: Acute 88F with LGIB; HDS CLD, NPO at midnight bowel prep today plan for EGD, colonoscopy tomorrow cares per primary team Qualifiers: GI bleed type/associated pathology: unspecified gastrointestinal hemorrhage type Qualified Code(s): K92.2 - Gastrointestinal hemorrhage, unspecified Subjective Patient reports: no new complaints Objective Vital Signs - Last 8 Hours Temp Pulse Resp BP Pulse Ox 03/18/18 10:30 98.2 F 98 16 137/82 90 03/18/18 06:28 97.9 F 87 15 123/74 91 03/18/18 04:41 97.8 F 93 14 111/66 90 Intake and Output 03/17/18 03/18/18 03/18/18 23:59 07:59 15:59 Intake Total 420 / 420 1100 / 1100 320 / 320 Output Total 0 / 0 0 / 0 Balance 420 / 420 1100 / 1100 320 / 320 Intake: IV Fluids 300 / 300 1100 / 1100 200 / 200 D5% And 0.9% Nacl 1000 Ml 1,000 1000 / 1000 ML @ 100 mls/hr IVC .Q10H [facility] Rx#:[id number] Cipro Premix 400 MG/200 ML 400 200 / 200 200 / 200 mg In 200 ml @ 200 mls/hr IVPB Q12HR [facility] Rx#:[id number] Flagyl Premix 500 MG/100 ML 500 100 / 100 100 / 100 mg In 100 ml @ 100 mls/hr IVPB Q8HR [facility] Rx#:[id number] Oral 120 / 120 0 / 0 120 / 120 Output: Urine 0 / 0 0 / 0 Other: Meal Dinner Breakfast Percent of Meal Consumed 50% 50% Stool Size Large Moderate Stool Consistency soft loose soft Stool Characteristics [place] Stool Color Brown Brown Bright Red Blood # Urine Diapers 1 1 # Bowel Movement Diapers 1 1 Weight 77.5 kg Patient Weight 03/18/18 23:59 Weight 77.5 kg - General physical appearance no distress - Respiratory normal expansion, normal respiratory effort - Cardiovascular Cardiovascular exam: Present: RRR - Abdomen Abdomen: Present: soft, non tender - Labs 03/17/18 23:53 03/16/18 15:50 Consult Discharge Plan - Plan Referrals: NONE,PCP [Primary Care Provider] -
--- NOTE | 2018-03-18 12:06 | Internal Med Progress Note ---
Hospitalist Progress Note - Encounter Date of Encounter: 03/18/18 Time of Encounter: 09:23 - Subjective Interval History: Patient seen and examined this morning. No acute overnight events. Denies new complains. BM with Bright red blood. Denies cp, sob, palpitation. - Exam Vitals: Temp Pulse Resp BP Pulse Ox 98.2 F 98 16 137/82 90 03/18/18 10:30 03/18/18 10:30 03/18/18 10:30 03/18/18 10:30 03/18/18 10:30 Exam: GEN: AOx1. in no acute distress. HEENT: PEARLA. Oropharynx unremarkable. NECK: Supple, no lymphadenopathy. HEART: RRR, S1, S2. LUNGS: No crackles or wheezes are heard. ABDOMEN: Soft, nontender, nondistended with good bowel sounds heard. EXTREMITIES: 1+ pitting edema BLE. NEUROLOGICAL: Baseline deficit from CVA with Both leg weakness 0/5 and Rt arm weakness 2/5. 4/5 in LUE. Difficult to understand. Follows command. SKIN: Warm and dry without any rash. - Assessment and Plan (1) Seizure disorder Current Visit: No Status: Chronic (2) GI bleeding Current Visit: Yes Status: Acute (3) Colitis Current Visit: No Status: Chronic - Summary of Assessment and Plan Summary of Assessment and Plan: GI bleeding - Reported bloody stool. Guaiac stool is positive. - Will transfuse if hemoglobin less than 7.0. - Recent infectious colitis, she was placed on Augmentin. Started on Cipro and flagyl - c/w PPI drip - Plan for EGD , colonoscopy tomorrow. - NPO after 12. h/o DVT - Hold eliquis given GI bleed Seizure disorder - home medication phenobarbital and Keppra when talking PO. DVT Prophylaxis: - Hold Eliquis due to GI bleeding. - Time Spent with Patient Total time spent is greater than 50% in coordination of care (as documented) at patient's floor/unit and/or counseling patient: Internal Medicine: Result - Labs CBC & Chem 7: 03/17/18 23:53 03/16/18 15:50 Labs: Short CBC 03/17/18 03/17/18 03/17/18 Range/Units 11:42 18:18 23:53 WBC 6.9 7.3 6.9 (4.3-11.1) K/mcL Hgb 8.4 L 9.0 L 8.1 L (11.5-15.4) g/dL Hct 25.5 L 27.6 L 24.9 L (35.3-44.9) % Plt Count 208 240 217 (140-400) K/mcL Neutrophils # 4.2 3.9 3.8 (1.6-8.9) K/mcL - ABG Interpretation ABG results: PT/INR, D-dimer PT 14.6 Seconds (9.4-12.1) H 03/16/18 15:50 Consult Discharge Plan - Plan Referrals: NONE,PCP [Primary Care Provider] - (2) GI bleeding Qualifiers: GI bleed type/associated pathology: unspecified gastrointestinal hemorrhage type Qualified Code(s): K92.2 - Gastrointestinal hemorrhage, unspecified
[2018-03-18 16:28] LABS: Hemoglobin 8.7 g/dL (11.5-15.4)
[2018-03-18] MEDS ORDERED: Polyethylene Glycol 3350 255 GM POWDER PO ONE (18:46)
[2018-03-19] MEDS: MetroNIDAZOLE 500 MG/100 ML 500 MG/100 ML BAG IVPB SCH ×3 (00:24→17:11)
[2018-03-19] MEDS: Insulin LISPRO 300 UNITS/3 ML VIAL SQ SCH ×4 (00:26→17:12)
[2018-03-19] MEDS: D5% in 0.9% NACL 1,000 ML IVC SCH ×3 (03:00→22:00)
[2018-03-19] MEDS: Pantoprazole 40 MG VIAL IVP SCH ×2 (05:36→17:12)
[2018-03-19 07:02] LABS: Hematocrit 27.1 % (35.3-44.9); Hemoglobin 8.7 g/dL (11.5-15.4)
[2018-03-19] MEDS: Multivit/Ca/Min/Fe/FA 1 TAB TABLET PO SCH (09:37)
[2018-03-19] MEDS: Folic Acid 1 MG TABLET PO SCH (09:37)
[2018-03-19] MEDS: PHENobarbital 32.4 MG TABLET PO SCH ×3 (09:37→21:12)
[2018-03-19] MEDS: levETIRAcetam 250 MG TABLET PO SCH ×2 (09:37→21:12)
--- NOTE | 2018-03-19 11:34 | Internal Med Progress Note ---
Hospitalist Progress Note - Encounter Date of Encounter: 03/19/18 Time of Encounter: 08:21 - Subjective Interval History: Patient seen and examined this morning. No acute overnight events. Very sleepy this morning. Easly arousable. Could not offer any complains. - Exam Vitals: Temp Pulse Resp BP Pulse Ox 98.7 F 92 20 123/74 89 03/19/18 08:00 03/19/18 08:00 03/19/18 08:00 03/19/18 08:00 03/19/18 08:00 Exam: GEN: AOx1. in no acute distress. HEENT: PEARLA. Oropharynx unremarkable. NECK: Supple, no lymphadenopathy. HEART: RRR, S1, S2. LUNGS: No crackles or wheezes are heard. ABDOMEN: Soft, nontender, nondistended with good bowel sounds heard. EXTREMITIES: 1+ pitting edema BLE. NEUROLOGICAL: Baseline deficit from CVA with Both leg weakness 0/5 and Rt arm weakness 2/5. 4/5 in LUE. Difficult to understand. Follows command. SKIN: Warm and dry without any rash. - Assessment and Plan (1) Seizure disorder Current Visit: No Status: Chronic (2) GI bleeding Current Visit: Yes Status: Acute (3) Colitis Current Visit: No Status: Chronic - Summary of Assessment and Plan Summary of Assessment and Plan: GI bleeding - Reported bloody stool. Guaiac stool is positive. - Will transfuse if hemoglobin less than 7.0. - Recent infectious colitis, she was placed on Augmentin.c/w Cipro and fl agyl(last dose today) - c/w PPI drip - Plan for EGD , colonoscopy today. h/o DVT - Couldn't clarify the timing of event from her or pervious records. Appears to be on coumadin in 2016. - Hold eliquis given GI bleed - Will attempt to clarify history. Couldn't reach . - Repeat LE US doppler. Seizure disorder - home medication phenobarbital and Keppra when talking PO. DVT Prophylaxis: - Hold Eliquis due to GI bleeding. - Time Spent with Patient Total time spent is greater than 50% in coordination of care (as documented) at patient's floor/unit and/or counseling patient: Internal Medicine: Result - Labs CBC & Chem 7: 03/19/18 06:17 03/16/18 15:50 Labs: Short CBC 03/18/18 03/19/18 Range/Units 16:10 06:17 Hgb 8.7 L 8.7 L (11.5-15.4) g/dL Hct 27.0 L 27.1 L (35.3-44.9) % - ABG Interpretation ABG results: PT/INR, D-dimer PT 14.6 Seconds (9.4-12.1) H 03/16/18 15:50 Consult Discharge Plan - Plan Referrals: NONE,PCP [Primary Care Provider] - (2) GI bleeding Qualifiers: GI bleed type/associated pathology: unspecified gastrointestinal hemorrhage type Qualified Code(s): K92.2 - Gastrointestinal hemorrhage, unspecified
[2018-03-19] MEDS ORDERED: *HR* Midazolam HCl 5 MG/5 ML VIAL IVP ONE ×2 (11:45→12:42)
[2018-03-19] MEDS ORDERED: *HR* FentaNYL (PF) 100 MCG/2 ML VIAL ONE (11:46)
[2018-03-19] MEDS ORDERED: *HR* FentaNYL (PF) 100 MCG/2 ML VIAL IVP ONE (12:42)
[2018-03-19] MEDS ORDERED: Acetylcysteine 10% 2 ML INHSOL IH ONE (12:42)
[2018-03-19] MEDS ORDERED: *HR* Promethazine 25 MG/ML VIAL IVP ONE (12:42)
[2018-03-19] MEDS: 0.9 % Sodium Chloride 1,000 ML IVC SCH (15:13)
[2018-03-20] MEDS: MetroNIDAZOLE 500 MG/100 ML 500 MG/100 ML BAG IVPB SCH ×4 (00:09→23:58)
[2018-03-20] MEDS: Insulin LISPRO 300 UNITS/3 ML VIAL SQ SCH ×4 (00:10→17:14)
[2018-03-20 05:35] LABS: Basophils % 0.5 %; Eosinophils # 0.3 K/mcL (0.0-0.6); Eosinophils % 3.9 %; Hematocrit 22.2 % (35.3-44.9); Hemoglobin 7.1 g/dL (11.5-15.4); Immature Granulocytes % 0.3 % (0-4); Lymphocytes # 1.7 K/mcL (0.6-4.6); Lymphocytes % 21.8 %; Mean Corpuscular Hemoglobin 33.6 pg (28.0-33.3); Mean Corpuscular Volume 105.2 fL (83.0-100.0); Mean Platelet Volume 11.3 fL (9.4-12.4); Monocytes # 1.1 K/mcL (0.0-1.3); Neutrophils # 4.6 K/mcL (1.6-8.9); Platelet Count 233 K/mcL (140-400); Red Blood Count 2.11 M/mcL (3.82-4.97); Red Cell Distribution Width 12.8 % (11.5-14.5); Segmented Neutrophils % 59.5 %
[2018-03-20 05:55] LABS: BUN/Creatinine Ratio 23 (6-26); Blood Urea Nitrogen 14 mg/dL (8-23); Calcium 7.8 mg/dL (8.6-10.3); Carbon Dioxide 27 mEq/L (23-29); Chloride 111 mEq/L (98-107); Glucose 97 mg/dL (70-105); Osmolality,Calculated 294 (280-300); Potassium 3.3 mEq/L (3.5-5.1); Sodium 142 mEq/L (136-145); eGFR For Non-African Americans > 60 (> 60)
[2018-03-20] MEDS: Pantoprazole 40 MG VIAL IVP SCH ×2 (06:06→17:19)
[2018-03-20] MEDS: D5% in 0.9% NACL 1,000 ML IVC SCH ×2 (06:50→09:16)
[2018-03-20] MEDS: 0.9 % Sodium Chloride 1,000 ML IVC SCH (08:30)
[2018-03-20] MEDS: PHENobarbital 32.4 MG TABLET PO SCH ×3 (09:28→23:10)
[2018-03-20] MEDS: levETIRAcetam 250 MG TABLET PO SCH (09:29)
[2018-03-20] MEDS: Multivit/Ca/Min/Fe/FA 1 TAB TABLET PO SCH (09:30)
[2018-03-20] MEDS: Folic Acid 1 MG TABLET PO SCH (09:30)
[2018-03-20 09:44] LABS: Hematocrit 22.6 % (35.3-44.9); Hemoglobin 7.3 g/dL (11.5-15.4)
--- NOTE | 2018-03-20 11:24 | Internal Med Progress Note ---
<Eri Wolfe - Last Filed: 03/20/18 15:15> Hospitalist Progress Note - Encounter Date of Encounter: 03/20/18 Time of Encounter: 10:22 - Subjective Interval History: Pt seen and examined at bedside this morning. Per RN, no events overnight. Pt resting comfortably in NAD. AOx1 - able to speak, but difficult to discern. Oriented to name, but not to place nor time. Plan for colonoscopy today, as prep yesterday did not allow for procedure to occur. - Exam Vitals: Temp Pulse Resp BP Pulse Ox 97.6 F 61 18 106/66 98 03/20/18 07:20 03/20/18 07:20 03/20/18 07:20 03/20/18 07:20 03/20/18 07:20 Exam: GEN: AOx1; NAD; pleasant resting in bed HEENT: EOMI; normocephalic; atraumatic NECK: Supple; Full ROM HEART: RRR; no murmurs, rubs, gallops LUNGS: CTAB; no wheezes, rales, rhonchi ABDOMEN: Observed mild tenderness to palpation, but otherwise Soft, non- distended EXTREMITIES: Pitting edema bilaterally to knees NEURO: Baseline deficit from CVA SKIN: Warm and dry without rash - Assessment and Plan (1) GI bleeding Current Visit: Yes Status: Acute Assessment and Plan: [facility] FOBT: Positive Hx of recent infectious colitis - started on Augmentin; Switched to Cipro and Flagyl upon admission Endoscopy: Normal Esophagus, Duodenitis, Gastritis Hb this morning = 7.1; Repeat Hb = 7.3. VSS: Plan to transfuse with Hb < 7.0 PLAN: Monitor Vitals Q2h Cont with Cipro and Flagyl Cont with PPI drip F/U Colonoscopy (2) Seizure disorder Current Visit: Yes Status: Chronic Assessment and Plan: Cont Home Meds - Phenobarbital and Keppra Cont to monitor (3) Hx of deep venous thrombosis Current Visit: No Status: Chronic Assessment and Plan: Hx of DVT managed with Coumadin in the past Currently on Eliqus PLAN: Hold eliqus due to GI bleed (4) DVT prophylaxis Current Visit: Yes Status: Acute Assessment and Plan: SCDs - Time Spent with Patient Total time spent is greater than 50% in coordination of care (as documented) at patient's floor/unit and/or counseling patient: less than 15 minutes Plan of Care Discussed with: nurse Internal Medicine: Result - Labs CBC & Chem 7: 03/20/18 08:24 03/20/18 04:07 Labs: Short CBC 03/20/18 03/20/18 Range/Units 04:07 08:24 WBC 7.7 (4.3-11.1) K/mcL Hgb 7.1 L D 7.3 L (11.5-15.4) g/dL Hct 22.2 L 22.6 L (35.3-44.9) % Plt Count 233 (140-400) K/mcL Neutrophils # 4.6 (1.6-8.9) K/mcL BMP 03/20/18 04:07 Sodium 142 Potassium 3.3 L Chloride 111 H Carbon Dioxide 27 BUN 14 Creatinine 0.60 Glucose 97 Calcium 7.8 L - ABG Interpretation ABG results: PT/INR, D-dimer PT 14.6 Seconds (9.4-12.1) H 03/16/18 15:50 - Impressions Impressions Abdomen/Pelvis CT 03/16/18 17:43 IMPRESSION: Hyperdense material within the colon near splenic flexure. Finding could represent ingested contents or possibly contrast extravasation given the history of GI bleeding. Unfortunately, this is not definitively characterized as a noncontrast scan was not performed at the same time as this study. If the patient is showing clinical signs of active GI bleeding, this could be further evaluated with a GI bleed protocol CT angiogram (including noncontrast, arterial phase, and delayed phase images) or a tagged red blood cell scan. Fecal impaction with evidence of stercoral colitis. Diverticulosis. Intermediate density lesion in the left kidney may represent a solid lesion or a cyst with complex contents. Finding could be further characterized with renal ultrasound or renal mass protocol CT or MRI. IVC filter with multiple legs penetrating as detailed above. Findings were discussed with Dr. Felix at 9:43 pm on 03/16/2018. D/ / 03/16/2018 21:47:04 Gian Wilcox MD / [facility] Interpreting Provider: Gian Wilcox MD Consult Discharge Plan - Plan Referrals: NONE,PCP [Primary Care Provider] - <Shantelle Mcmullen - Last Filed: 03/20/18 17:05> Hospitalist Progress Note - Exam Vitals: Temp Pulse Resp BP Pulse Ox 97.7 F 98 18 97/53 90 03/20/18 15:35 03/20/18 15:35 03/20/18 15:35 03/20/18 15:35 03/20/18 15:35 - Assessment and Plan (1) Seizure disorder Current Visit: Yes Status: Chronic (2) GI bleeding Current Visit: Yes Status: Acute (3) Colitis Current Visit: No Status: Chronic - Time Spent with Patient Total time spent is greater than 50% in coordination of care (as documented) at patient's floor/unit and/or counseling patient: Internal Medicine: Result - Labs CBC & Chem 7: 03/20/18 08:24 03/20/18 04:07 Labs: Short CBC 03/20/18 03/20/18 Range/Units 04:07 08:24 WBC 7.7 (4.3-11.1) K/mcL Hgb 7.1 L D 7.3 L (11.5-15.4) g/dL Hct 22.2 L 22.6 L (35.3-44.9) % Plt Count 233 (140-400) K/mcL Neutrophils # 4.6 (1.6-8.9) K/mcL BMP 03/20/18 04:07 Sodium 142 Potassium 3.3 L Chloride 111 H Carbon Dioxide 27 BUN 14 Creatinine 0.60 Glucose 97 Calcium 7.8 L - ABG Interpretation ABG results: PT/INR, D-dimer PT 14.6 Seconds (9.4-12.1) H 03/16/18 15:50 - Impressions Impressions Abdomen/Pelvis CT 03/16/18 17:43 IMPRESSION: Hyperdense material within the colon near splenic flexure. Finding could represent ingested contents or possibly contrast extravasation given the history of GI bleeding. Unfortunately, this is not definitively characterized as a noncontrast scan was not performed at the same time as this study. If the patient is showing clinical signs of active GI bleeding, this could be further evaluated with a GI bleed protocol CT angiogram (including noncontrast, arterial phase, and delayed phase images) or a tagged red blood cell scan. Fecal impaction with evidence of stercoral colitis. Diverticulosis. Intermediate density lesion in the left kidney may represent a solid lesion or a cyst with complex contents. Finding could be further characterized with renal ultrasound or renal mass protocol CT or MRI. IVC filter with multiple legs penetrating as detailed above. Findings were discussed with Dr. Felix at 9:43 pm on 03/16/2018. D/ / 03/16/2018 21:47:04 Gian Wilcox MD / [facility] Interpreting Provider: Gian Wilcox MD - Attending Attestation I examined this patient and my medical decision-making was reviewed with the Resident Physician. I agree with the documented findings, disposition and treatment plan as described except to the extent set forth below. ____ <Eri Wolfe - Last Filed: 03/20/18 15:15> (1) GI bleeding Qualifiers: GI bleed type/associated pathology: unspecified gastrointestinal hemorrhage t ype Qualified Code(s): K92.2 - Gastrointestinal hemorrhage, unspecified <Shantelle Mcmullen - Last Filed: 03/20/18 17:05> (2) GI bleeding Qualifiers: GI bleed type/associated pathology: unspecified gastrointestinal hemorrhage ty pe Qualified Code(s): K92.2 - Gastrointestinal hemorrhage, unspecified
[2018-03-20] MEDS ORDERED: *HR* Midazolam HCl 5 MG/5 ML VIAL IVP ONE (11:40)
[2018-03-20] MEDS ORDERED: *HR* FentaNYL (PF) 100 MCG/2 ML VIAL ONE (11:41)
[2018-03-20] MEDS ORDERED: Polyethylene Glycol 3350 255 GM POWDER PO ONE (14:34)
--- NOTE | 2018-03-20 15:03 | General Surgery Progress Note ---
Date of Encounter: 03/20/18 Time of Encounter: 15:02 - Assessment and Plan (1) GI bleeding Current Visit: Yes Status: Acute 88F with LGIB; HDS s/p colonoscopy; aborted due to poor prep CLD, bowel prep trend h/h trend vitals plan for colonoscopy when bowel prep clear if unable to get clear and h/h down trending consider either angio vs rbc tagged cell scan Qualifiers: GI bleed type/associated pathology: unspecified gastrointestinal hemorrhage type Qualified Code(s): K92.2 - Gastrointestinal hemorrhage, unspecified Subjective Patient reports: no new complaints Objective Vital Signs - Last 8 Hours Temp Pulse Resp BP Pulse Ox 03/20/18 12:53 99.1 F 98 18 93/57 92 03/20/18 12:20 100 16 94/44 97 03/20/18 12:15 97.9 F 97 14 96/34 95 03/20/18 12:04 97.9 F 94 16 124/55 94 03/20/18 11:30 98.4 F 96 14 108/69 91 03/20/18 07:20 97.6 F 61 18 106/66 98 Intake and Output 03/19/18 03/20/18 03/20/18 23:59 07:59 15:59 Intake Total 1420 / 1420 300 / 300 1351 / 1351 Balance 1420 / 1420 300 / 300 1351 / 1351 Intake: IV Fluids 1300 / 1300 300 / 300 1351 / 1351 D5% And 0.9% Nacl 1000 Ml 1,000 1000 / 1000 1251 / 1251 ML @ 100 mls/hr IVC .Q10H [facility] Rx#:[id number] Cipro Premix 400 MG/200 ML 400 200 / 200 200 / 200 mg In 200 ml @ 200 mls/hr IVPB Q12HR [facility] Rx#:[id number] Flagyl Premix 500 MG/100 ML 500 100 / 100 100 / 100 100 / 100 mg In 100 ml @ 100 mls/hr IVPB Q8HR [facility] Rx#:[id number] Oral 120 / 120 0 / 0 Other: Stool Size Moderate Large Large Stool Consistency soft soft liquid Stool Color Blood Tinged Brown Brown # Voids 1 # Urine Diapers 1 1 1 # Bowel Movements 1 1 1 # Bowel Movement Diapers 1 1 Weight 79 kg Blood Glucose* 152 100 111 Patient Weight 03/20/18 23:59 Weight 79 kg - General physical appearance no distress - Respiratory normal expansion, normal respiratory effort - Cardiovascular Cardiovascular exam: Present: RRR - Integumentary no rash - Labs 03/20/18 08:24 03/20/18 04:07 Diabetes panel 03/20/18 Range/Units 04:07 Sodium 142 (136-145) mEq/L Potassium 3.3 L (3.5-5.1) mEq/L Chloride 111 H (98-107) mEq/L Carbon Dioxide 27 (23-29) mEq/L BUN 14 (8-23) mg/dL Creatinine 0.60 (0.60-1.20) mg/dL Glucose 97 (70-105) mg/dL Calcium 7.8 L (8.6-10.3) mg/dL Calcium panel 03/20/18 Range/Units 04:07 Calcium 7.8 L (8.6-10.3) mg/dL Pituitary panel 03/20/18 Range/Units 04:07 Sodium 142 (136-145) mEq/L Potassium 3.3 L (3.5-5.1) mEq/L Chloride 111 H (98-107) mEq/L Carbon Dioxide 27 (23-29) mEq/L BUN 14 (8-23) mg/dL Creatinine 0.60 (0.60-1.20) mg/dL Glucose 97 (70-105) mg/dL Calcium 7.8 L (8.6-10.3) mg/dL Adrenal panel 03/20/18 Range/Units 04:07 Sodium 142 (136-145) mEq/L Potassium 3.3 L (3.5-5.1) mEq/L Chloride 111 H (98-107) mEq/L Carbon Dioxide 27 (23-29) mEq/L BUN 14 (8-23) mg/dL Creatinine 0.60 (0.60-1.20) mg/dL Glucose 97 (70-105) mg/dL Calcium 7.8 L (8.6-10.3) mg/dL Consult Discharge Plan - Plan Referrals: NONE,PCP [Primary Care Provider] -
--- NOTE | 2018-03-20 17:06 | Electrocardiograph Report ---
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
[2018-03-20 18:11] LABS: Basophils # 0.1 K/mcL (0.0-0.2); Basophils % 0.7 %; Eosinophils # 0.4 K/mcL (0.0-0.6); Eosinophils % 3.4 %; Hematocrit 23.1 % (35.3-44.9); Hemoglobin 7.4 g/dL (11.5-15.4); Immature Granulocytes % 0.4 % (0-4); Lymphocytes # 1.3 K/mcL (0.6-4.6); Lymphocytes % 12.4 %; Mean Corpuscular Hemoglobin 33.5 pg (28.0-33.3); Mean Corpuscular Volume 104.5 fL (83.0-100.0); Mean Platelet Volume 10.8 fL (9.4-12.4); Monocytes # 1.1 K/mcL (0.0-1.3); Monocytes % 10.8 %; Neutrophils # 7.6 K/mcL (1.6-8.9); Platelet Count 270 K/mcL (140-400); Red Blood Count 2.21 M/mcL (3.82-4.97); Segmented Neutrophils % 72.3 %
[2018-03-20] MEDS: levETIRAcetam 500 MG/5 ML UDC PO SCH (23:10)
[2018-03-21] MEDS: Insulin LISPRO 300 UNITS/3 ML VIAL SQ SCH ×5 (00:02→23:51)
[2018-03-21 04:44] LABS: Basophils # 0.1 K/mcL (0.0-0.2); Basophils % 0.4 %; Eosinophils % 0.1 %; Hematocrit 22.7 % (35.3-44.9); Hemoglobin 7.1 g/dL (11.5-15.4); Immature Granulocytes % 0.4 % (0-4); Lymphocytes # 1.1 K/mcL (0.6-4.6); Lymphocytes % 9.2 %; Mean Corpuscular HGB Conc 31.3 g/dL (31.6-35.5); Mean Corpuscular Hemoglobin 33.2 pg (28.0-33.3); Mean Corpuscular Volume 106.1 fL (83.0-100.0); Mean Platelet Volume 11.1 fL (9.4-12.4); Monocytes # 1.5 K/mcL (0.0-1.3); Monocytes % 12.7 %; Platelet Count 294 K/mcL (140-400); Red Blood Count 2.14 M/mcL (3.82-4.97); Segmented Neutrophils % 77.2 %
[2018-03-21 05:05] LABS: Alanine Aminotransferase 18 Units/L (7-52); Alkaline Phosphatase 50 Units/L (34-104); Aspartate Amino Transferase 31 Units/L (13-39); BUN/Creatinine Ratio 18 (6-26); Bilirubin,Total 0.4 mg/dL (0.3-1.0); Blood Urea Nitrogen 15 mg/dL (8-23); Carbon Dioxide 24 mEq/L (23-29); Chloride 108 mEq/L (98-107); Glucose 148 mg/dL (70-105); Osmolality,Calculated 290 (280-300); Potassium 3.8 mEq/L (3.5-5.1); Sodium 138 mEq/L (136-145); eGFR For Non-African Americans > 60 (> 60)
[2018-03-21 05:06] LABS: Albumin 2.9 g/dL (3.5-5.7); Albumin/Globulin Ratio 1.4 (1.1-2.2); Globulin 2.1 g/dL (2.4-3.5)
[2018-03-21] MEDS: Pantoprazole 40 MG VIAL IVP SCH (05:40)
--- NOTE | 2018-03-21 08:34 | General Surgery Progress Note ---
Date of Encounter: 03/21/18 Time of Encounter: 08:30 - Assessment and Plan (1) GI bleeding Current Visit: Yes Status: Acute 88F with LGIB; HDS s/p colonoscopy; aborted due to poor prep; plan for repeat scope on 03/22 CLD, bowel prep (2 bottles of magnesium citrate trend h/h trend vitals if unable to get clear and h/h down trending consider either angio vs rbc tagged cell scan Qualifiers: GI bleed type/associated pathology: unspecified gastrointestinal hemorrhage type Qualified Code(s): K92.2 - Gastrointestinal hemorrhage, unspecified Subjective Patient reports: no new complaints, blood in stool Objective Vital Signs - Last 8 Hours Temp Pulse Resp BP Pulse Ox 03/21/18 07:17 99.4 F 104 18 88/52 98 03/21/18 05:35 98.7 F 97 16 88/55 94 03/21/18 03:50 98.3 F 106 17 81/53 94 Intake and Output 03/20/18 03/21/18 03/21/18 23:59 07:59 15:59 Intake Total 540 / 540 300 / 300 Balance 540 / 540 300 / 300 Intake: IV Fluids 300 / 300 300 / 300 Cipro Premix 400 MG/200 ML 400 200 / 200 200 / 200 mg In 200 ml @ 200 mls/hr IVPB Q12HR [facility] Rx#:[id number] Flagyl Premix 500 MG/100 ML 500 100 / 100 100 / 100 mg In 100 ml @ 100 mls/hr IVPB Q8HR [facility] Rx#:[id number] Oral 240 / 240 Other: Meal CLEARS Stool Size Moderate Stool Color Brown Dark Red Blood Blood Tinged # Bowel Movements 1 # Bowel Movement Diapers 4 Blood Glucose* 138 164 - General physical appearance no distress - Respiratory normal expansion, normal respiratory effort - Cardiovascular Cardiovascular exam: Present: RRR - Abdomen Abdomen: Present: soft - Genitourinary normal external genitalia, normal perineum - Labs 03/21/18 04:01 03/21/18 04:01 Diabetes panel 03/21/18 Range/Units 04:01 Sodium 138 (136-145) mEq/L Potassium 3.8 (3.5-5.1) mEq/L Chloride 108 H (98-107) mEq/L Carbon Dioxide 24 (23-29) mEq/L BUN 15 (8-23) mg/dL Creatinine 0.85 (0.60-1.20) mg/dL Glucose 148 H (70-105) mg/dL Calcium 8.0 L (8.6-10.3) mg/dL AST 31 (13-39) Units/L ALT 18 (7-52) Units/L Alkaline Phosphatase 50 (34-104) Units/L Albumin 2.9 L (3.5-5.7) g/dL Calcium panel 03/21/18 Range/Units 04:01 Calcium 8.0 L (8.6-10.3) mg/dL Albumin 2.9 L (3.5-5.7) g/dL Pituitary panel 03/21/18 Range/Units 04:01 Sodium 138 (136-145) mEq/L Potassium 3.8 (3.5-5.1) mEq/L Chloride 108 H (98-107) mEq/L Carbon Dioxide 24 (23-29) mEq/L BUN 15 (8-23) mg/dL Creatinine 0.85 (0.60-1.20) mg/dL Glucose 148 H (70-105) mg/dL Calcium 8.0 L (8.6-10.3) mg/dL Adrenal panel 03/21/18 Range/Units 04:01 Sodium 138 (136-145) mEq/L Potassium 3.8 (3.5-5.1) mEq/L Chloride 108 H (98-107) mEq/L Carbon Dioxide 24 (23-29) mEq/L BUN 15 (8-23) mg/dL Creatinine 0.85 (0.60-1.20) mg/dL Glucose 148 H (70-105) mg/dL Calcium 8.0 L (8.6-10.3) mg/dL Total Bilirubin 0.4 (0.3-1.0) mg/dL AST 31 (13-39) Units/L ALT 18 (7-52) Units/L Alkaline Phosphatase 50 (34-104) Units/L Albumin 2.9 L (3.5-5.7) g/dL Consult Discharge Plan - Plan Referrals: NONE,PCP [Primary Care Provider] -
[2018-03-21] MEDS: MetroNIDAZOLE 500 MG/100 ML 500 MG/100 ML BAG IVPB SCH ×3 (09:10→23:41)
[2018-03-21] MEDS: levETIRAcetam 500 MG/5 ML UDC PO SCH ×3 (09:12→22:07)
[2018-03-21] MEDS: Multivit/Ca/Min/Fe/FA 1 TAB TABLET PO SCH ×2 (09:12→09:23)
[2018-03-21] MEDS: Folic Acid 1 MG TABLET PO SCH (09:12)
[2018-03-21] MEDS: PHENobarbital 32.4 MG TABLET PO SCH ×3 (09:18→22:02)
--- NOTE | 2018-03-21 10:31 | Internal Med Progress Note ---
Hospitalist Progress Note - Encounter Date of Encounter: 03/21/18 Time of Encounter: 10:29 - Subjective Interval History: Patient somnolent this morning. Does not respond much to stimuli. She is non- labored breathing, no acute events. 2 units PRBC ordered stat for this morning has yet to be given. - Exam Vitals: Temp Pulse Resp BP Pulse Ox 99.4 F 104 18 88/52 98 03/21/18 07:17 03/21/18 07:17 03/21/18 07:17 03/21/18 07:17 03/21/18 07:17 Exam: GEN: AOx1; Less aroused than my exam yesterday. Responds to verbal and tactile stimuli. HEENT: EOMI; normocephalic; atraumatic. Conjunctiva pallor. HEART: RRR; no murmurs, rubs, gallops LUNGS: CTAB; no wheezes, rales, rhonchi. No labored breathing. ABDOMEN: Soft, Nt/ND, normal bowel sounds. 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 SKIN: Warm and dry without rash. Pallor. - Assessment and Plan (1) GI bleeding Current Visit: Yes Status: Acute Assessment and Plan: 88-year-old female with past medical history of DVT on Eliquis, status post brain surgery, seizure disorder, and recent colitis presented with a reported bloody stool. Guaiac stool is positive. - H/H 10.4/33.4 on admission. Eliquis was not resumed on admission.Today has dropped back down to 7.1 like yesterday, she exhibits skin pallor and is somnolent this AM. Continue IV Protonix BID. H&H back down to 7.1 this AM, STAT 2 units PRBC were ordered this AM and are not done. Nurse has called blood bank for follow-up. Hypotensive at 88/52 with HR 104. Give 250 ml normal saline bolus until transf usion arrives to floor. Colonoscopy is set for 03/22 because could not be done again today because p atient still having stool and poorly prepped. Closely monitor VS. Prognosis is guarded. She is DNR CC. (2) Seizure disorder Current Visit: Yes Status: Chronic Assessment and Plan: We will continue home medication phenobarbital and Keppra. (3) Colitis Current Visit: No Status: Chronic Assessment and Plan: Continue Cipro/Flagyl. DVT Prophylaxis: EPCD - Time Spent with Patient Total time spent is greater than 50% in coordination of care (as documented) at patient's floor/unit and/or counseling patient: Internal Medicine: Result - Labs CBC & Chem 7: 03/21/18 04:01 03/21/18 04:01 Labs: Short CBC 03/20/18 03/21/18 Range/Units 17:57 04:01 WBC 10.5 11.7 H (4.3-11.1) K/mcL Hgb 7.4 L 7.1 L (11.5-15.4) g/dL Hct 23.1 L 22.7 L (35.3-44.9) % Plt Count 270 294 (140-400) K/mcL Neutrophils # 7.6 9.0 H (1.6-8.9) K/mcL BMP 03/21/18 04:01 Sodium 138 Potassium 3.8 Chloride 108 H Carbon Dioxide 24 BUN 15 Creatinine 0.85 Glucose 148 H Calcium 8.0 L Liver Function 03/21/18 Range/Units 04:01 Total Bilirubin 0.4 (0.3-1.0) mg/dL AST 31 (13-39) Units/L ALT 18 (7-52) Units/L Alkaline Phosphatase 50 (34-104) Units/L Albumin 2.9 L (3.5-5.7) g/dL - ABG Interpretation ABG results: PT/INR, D-dimer PT 14.6 Seconds (9.4-12.1) H 03/16/18 15:50 Consult Discharge Plan - Plan Referrals: NONE,PCP [Primary Care Provider] - (1) GI bleeding Qualifiers: GI bleed type/associated pathology: unspecified gastrointestinal hemorrhage type Qualified Code(s): K92.2 - Gastrointestinal hemorrhage, unspecified
[2018-03-21] MEDS ORDERED: 0.9 % Sodium Chloride 500 ML ONE (10:40)
[2018-03-21] MEDS ORDERED: Isovue-370 500 ML INFUS..BTL IV ONE (10:53)
[2018-03-21] MEDS ORDERED: 0.9 % Sodium Chloride 250 ML ONE ×2 (11:20→13:33)
[2018-03-21] MEDS: Pantoprazole 40 MG in 0.9 % Sodium Chloride Mini Bag 100 ML IVC SCH ×3 (12:45→23:01)
--- NOTE | 2018-03-22 00:03 | Event Note ---
Date of Encounter: 03/22/18 Time of Encounter: 23:02 Alerted by radiology of patient's CT of the abdomen/pelvis results which showed evidence of contrast extravasation seen within the inferior aspect of the rectum along its posterior wall. Increasing anasarca with new bilateral small pleural effusions, periportal and pericholecystic edema and diffuse subcutaneous fat stranding. Discussed results w/Dr. Heard who stated that stool burden had decreased but he felt d/t contrast into rectum that this was source of bleeding. Pt. is currently DNRCC. Hospitalist progress note today stated patient's BP dropped later in the day today reaching as low as 70s over 40s. Hospitalist spoke with patient's and son during this time who reiterated that she is comfort care. Hospitalist discussed these measures and family would like to avoid intubation, CPR, and pressors patient to be sent to stepdown unit for further monitoring given her CODE STATUS and will not be sent to ICU per hospitalist.
[2018-03-22] MEDS: Pantoprazole 40 MG in 0.9 % Sodium Chloride Mini Bag 100 ML IVC SCH ×3 (01:33→11:14)
[2018-03-22 04:40] LABS: Basophils # 0.1 K/mcL (0.0-0.2); Basophils % 0.7 %; Eosinophils # 0.1 K/mcL (0.0-0.6); Hematocrit 29.5 % (35.3-44.9); Immature Granulocytes % 0.6 % (0-4); Lymphocytes # 1.1 K/mcL (0.6-4.6); Lymphocytes % 12.9 %; Mean Corpuscular HGB Conc 32.2 g/dL (31.6-35.5); Mean Corpuscular Hemoglobin 31.9 pg (28.0-33.3); Mean Platelet Volume 10.8 fL (9.4-12.4); Monocytes # 1.5 K/mcL (0.0-1.3); Platelet Count 261 K/mcL (140-400); Red Blood Count 2.98 M/mcL (3.82-4.97); Red Cell Distribution Width 15.7 % (11.5-14.5); Segmented Neutrophils % 67.8 %
[2018-03-22 04:57] LABS: BUN/Creatinine Ratio 17 (6-26); Blood Urea Nitrogen 15 mg/dL (8-23); Calcium 8.2 mg/dL (8.6-10.3); Carbon Dioxide 24 mEq/L (23-29); Chloride 110 mEq/L (98-107); Glucose 125 mg/dL (70-105); Osmolality,Calculated 290 (280-300); Potassium 3.5 mEq/L (3.5-5.1); Sodium 139 mEq/L (136-145); eGFR For Non-African Americans 59 (> 60)
[2018-03-22 05:16] LABS: Hemoglobin 9.5 g/dL (11.5-15.4)
[2018-03-22] MEDS: Insulin LISPRO 300 UNITS/3 ML VIAL SQ SCH ×3 (05:41→18:21)
[2018-03-22] MEDS: MetroNIDAZOLE 500 MG/100 ML 500 MG/100 ML BAG IVPB SCH ×2 (07:54→15:27)
[2018-03-22] MEDS: levETIRAcetam 500 MG/5 ML UDC PO SCH ×2 (08:00→21:42)
[2018-03-22] MEDS: Multivit/Ca/Min/Fe/FA 1 TAB TABLET PO SCH (08:00)
[2018-03-22] MEDS: Folic Acid 1 MG TABLET PO SCH (08:00)
[2018-03-22] MEDS: PHENobarbital 32.4 MG TABLET PO SCH ×3 (08:00→21:43)
[2018-03-22] MEDS ORDERED: 0.9 % Sodium Chloride 250 ML ONE (10:04)
[2018-03-22 10:17] LABS: Hematocrit 27.9 % (35.3-44.9); Hemoglobin 9.2 g/dL (11.5-15.4)
--- NOTE | 2018-03-22 10:54 | General Surgery Progress Note ---
Date of Encounter: 03/22/18 Time of Encounter: 10:11 - Assessment and Plan (1) GI bleeding Current Visit: Yes Status: Acute 88F with LGIB; HDS s/p colonoscopy; aborted due to poor prep; extravasation noted on CT angio; reported that family only wants comfort care; will discuss with family upon arrival about what they would like done for their loved one; no colonoscopy until discussion is had Qualifiers: GI bleed type/associated pathology: unspecified gastrointestinal hemorrhage type Qualified Code(s): K92.2 - Gastrointestinal hemorrhage, unspecified Subjective Patient reports: no new complaints, other (contrast extravasation in rectum; ) Objective Vital Signs - Last 8 Hours Temp Pulse Resp BP Pulse Ox 03/22/18 08:15 16 94 03/22/18 07:02 99.7 F H 89 16 88/51 03/22/18 03:36 99.4 F 90 15 98/52 94 Intake and Output 03/21/18 03/22/18 03/22/18 23:59 07:59 15:59 Intake Total 604 / 604 500 / 500 200 / 200 Balance 604 / 604 500 / 500 200 / 200 Intake: IV Fluids 100 / 100 500 / 500 200 / 200 Protonix 40 MG In 0.9 % Sodium 200 / 200 Chloride (Mini-Bag +) 100 ML @ 20 mls/hr IVC .Q5H [facility] Rx#: [id number] Cipro Premix 400 MG/200 ML 400 200 / 200 200 / 200 mg In 200 ml @ 200 mls/hr IVPB Q12HR [facility] Rx#:[id number] Flagyl Premix 500 MG/100 ML 500 100 / 100 100 / 100 mg In 100 ml @ 100 mls/hr IVPB Q8HR [facility] Rx#:[id number] Oral 240 / 240 Blood Product 264 / 264 Rbcs Leuko Poor As-1 Unit 264 / 264 [id number] Other: Meal snack (jello) Percent of Meal Consumed 100% Stool Size Moderate Small Stool Consistency loose loose liquid liquid Stool Color Brown Brown # Voids 1 1 # Urine Diapers 1 1 # Bowel Movements 1 1 # Bowel Movement Diapers 1 1 Weight 76.2 kg Blood Glucose* 124 128 Patient Weight 03/22/18 23:59 Weight 76.2 kg - General physical appearance no distress - Respiratory normal expansion, normal respiratory effort - Cardiovascular Cardiovascular exam: Present: RRR - Abdomen Abdomen: Present: soft, non tender - Labs 03/22/18 04:06 03/22/18 04:06 Diabetes panel 03/22/18 Range/Units 04:06 Sodium 139 (136-145) mEq/L Potassium 3.5 (3.5-5.1) mEq/L Chloride 110 H (98-107) mEq/L Carbon Dioxide 24 (23-29) mEq/L BUN 15 (8-23) mg/dL Creatinine 0.90 (0.60-1.20) mg/dL Glucose 125 H (70-105) mg/dL Calcium 8.2 L (8.6-10.3) mg/dL Calcium panel 03/22/18 Range/Units 04:06 Calcium 8.2 L (8.6-10.3) mg/dL Pituitary panel 03/22/18 Range/Units 04:06 Sodium 139 (136-145) mEq/L Potassium 3.5 (3.5-5.1) mEq/L Chloride 110 H (98-107) mEq/L Carbon Dioxide 24 (23-29) mEq/L BUN 15 (8-23) mg/dL Creatinine 0.90 (0.60-1.20) mg/dL Glucose 125 H (70-105) mg/dL Calcium 8.2 L (8.6-10.3) mg/dL Adrenal panel 03/22/18 Range/Units 04:06 Sodium 139 (136-145) mEq/L Potassium 3.5 (3.5-5.1) mEq/L Chloride 110 H (98-107) mEq/L Carbon Dioxide 24 (23-29) mEq/L BUN 15 (8-23) mg/dL Creatinine 0.90 (0.60-1.20) mg/dL Glucose 125 H (70-105) mg/dL Calcium 8.2 L (8.6-10.3) mg/dL Consult Discharge Plan - Plan Referrals: NONE,PCP [Primary Care Provider] -
--- NOTE | 2018-03-22 10:56 | Internal Med Progress Note ---
Addendum entered and electronically signed by Eri Wolfe 03/22/18 16:19: Per discussion with patient's after he spoke with Dr. Marcano (IR) and Dr. Berry (Surgery), he would like that we hold off on any interventions currently and monitor patient's condition. With deterioration, he may opt to pursue for further interventions, but the hope is the bleeding will resolve on its own. Would like for patient to stay in step down unit, rather than move to ICU, and p refers comfort care - avoid intubations, CPR, pressors. He prefers to further discuss options in a few days. Original Note: <Eri Wolfe - Last Filed: 03/22/18 13:26> Hospitalist Progress Note - Encounter Date of Encounter: 03/22/18 Time of Encounter: 10:34 - Subjective Interval History: Pt seen and examined at bedside this morning, somnolent, non-arousable, does not respond to stimuli. BPs remain in 80s/50s. Per RN, no events overnight. Denies bloody stools. Pt pending 1U PRBC transfusion due to sustained low BPs. CT Abd/Pelvis with contrast yesterday indicated evidence of contrast extravasation along inferior aspect of rectum along the posterior wall. Per discussions with family as of yesterday, they prefer comfort care - avoid intubation, cpr, pressors. Pt sent to stepdown unit instead of ICU. Possible IR intervention pending discussion with family later today. - Exam Vitals: Temp Pulse Resp BP Pulse Ox 99.7 F H 89 16 88/51 99 03/22/18 07:02 03/22/18 07:02 03/22/18 08:15 03/22/18 07:02 03/22/18 10:31 Exam: GEN: Somnolent pt, unable to arouse from sleep HEENT: Normocephalic, atraumatic CARD: RRR, No murmurs, rubs, gallops RESP: CTAB, no wheezes, rales, rhonchi ABD: Soft, non-distended, bowel sounds present EXT: 1+ pitting edema bilateral lower extremities SKIN: Pallor - Assessment and Plan (1) GI bleeding Current Visit: Yes Status: Acute Assessment and Plan: 88 y/o F with PMHx DVT managed with Eliquis, s/p brain surgery, seizures, colitis [facility]. FOBT was positive. Hx of infectious colitis on abx. Hb/Hct was 10.4/33.4 on admission and progressively dropped. Unable to complete colonoscopy due to poor prep. Hb/Hct dropped to 7.1. Pt was transfused 2U PRBCs CT Abd/Pelvis w/ contrast: Evidence of contrast extravasation is seen within the inferior aspect of rectum along posterior wall Pt's BP dropped and reached as low as 70s/40s - per discussions with pt's family, reiterated she is comfort care - DNRCC; admitted to stepdown unit instead of ICU BP again in low 80s/50s this morning; Pt somnolent, unable to arouse to verbal or tactile stimulation PLAN: Hb/Hct this mornin.2/27.9 - Hypotensive to 88/51 - plan to transfuse 1U PRBC Cont IV Protonix BID Cont Cipro and Flagyl - tx of infectious colitis Discussed with IR and surgery for possible interventions. 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 PLAN: SCD on RIGHT LEG only Cont hold elliquis (4) DVT prophylaxis Current Visit: Yes Status: Acute Assessment and Plan: SCDs only on RIGHT LEG; Evidence of chronic DVT in Left Lower Extremity per venous dopplar DVT Prophylaxis: SCDs - ONLY on RIGHT LEG; Evidence on chronic DVT on left leg - Time Spent with Patient Total time spent is greater than 50% in coordination of care (as documented) at patient's floor/unit and/or counseling patient: less than 15 minutes Plan of Care Discussed with: family Internal Medicine: Result - Labs CBC & Chem 7: 03/22/18 09:54 03/22/18 04:06 Labs: Short CBC 03/22/18 03/22/18 Range/Units 04:06 09:54 WBC 8.8 (4.3-11.1) K/mcL Hgb 9.5 L D 9.2 L (11.5-15.4) g/dL Hct 29.5 L 27.9 L (35.3-44.9) % Plt Count 261 (140-400) K/mcL Neutrophils # 6.0 (1.6-8.9) K/mcL BMP 03/22/18 04:06 Sodium 139 Potassium 3.5 Chloride 110 H Carbon Dioxide 24 BUN 15 Creatinine 0.90 Glucose 125 H Calcium 8.2 L - ABG Interpretation ABG results: PT/INR, D-dimer PT 14.6 Seconds (9.4-12.1) H 03/16/18 15:50 - Impressions Impressions Abdomen/Pelvis CTA 03/21/18 11:30 IMPRESSION: Evidence of contrast extravasation is seen within the inferior aspect of the rectum along its posterior wall. Increasing anasarca, with new bilateral small pleural effusions, periportal and pericholecystic edema, and diffuse subcutaneous fat stranding. Findings were discussed with Portillo Mccoy NP at 10:36 pm on 03/21/2018. D/ / Eduardo Heard MD / Eduardo Heard MD Interpreting Provider: Eduardo Heard MD Consult Discharge Plan - Plan Referrals: NONE,PCP [Primary Care Provider] - <Shantelle Mcmullen - Last Filed: 03/22/18 15:22> Hospitalist Progress Note - Exam Vitals: Temp Pulse Resp BP Pulse Ox 99.0 F 83 18 95/68 99 03/22/18 14:06 03/22/18 14:06 03/22/18 14:06 03/22/18 14:06 03/22/18 11:19 - Assessment and Plan (1) GI bleeding Current Visit: Yes Status: Acute (2) Seizure disorder Current Visit: Yes Status: Chronic (3) Colitis Current Visit: No Status: Chronic - Time Spent with Patient Total time spent is greater than 50% in coordination of care (as documented) at patient's floor/unit and/or counseling patient: Internal Medicine: Result - Labs CBC & Chem 7: 03/22/18 09:54 03/22/18 04:06 Labs: Short CBC 03/22/18 03/22/18 Range/Units 04:06 09:54 WBC 8.8 (4.3-11.1) K/mcL Hgb 9.5 L D 9.2 L (11.5-15.4) g/dL Hct 29.5 L 27.9 L (35.3-44.9) % Plt Count 261 (140-400) K/mcL Neutrophils # 6.0 (1.6-8.9) K/mcL BMP 03/22/18 04:06 Sodium 139 Potassium 3.5 Chloride 110 H Carbon Dioxide 24 BUN 15 Creatinine 0.90 Glucose 125 H Calcium 8.2 L - ABG Interpretation ABG results: PT/INR, D-dimer PT 14.6 Seconds (9.4-12.1) H 03/16/18 15:50 - Impressions Impressions Abdomen/Pelvis CTA 03/21/18 11:30 IMPRESSION: Evidence of contrast extravasation is seen within the inferior aspect of the rectum along its posterior wall. Increasing anasarca, with new bilateral small pleural effusions, periportal and pericholecystic edema, and diffuse subcutaneous fat stranding. Findings were discussed with Portillo Mccoy NP at 10:36 pm on 03/21/2018. D/ / Eduardo Heard MD / Eduardo Heard MD Interpreting Provider: Eduardo Heard MD - Attending Attestation I examined this patient and my medical decision-making was reviewed with the Resident Physician. I agree with the documented findings, disposition and treatment plan as described except to the extent set forth below. <WolfeEri - Last Filed: 03/22/18 13:26> (1) GI bleeding Qualifiers: GI bleed type/associated pathology: unspecified gastrointestinal hemorrhage type Qualified Code(s): K92.2 - Gastrointestinal hemorrhage, unspecified <Shantelle Mcmullen - Last Filed: 03/22/18 15:22> (1) GI bleeding Qualifiers: GI bleed type/associated pathology: unspecified gastrointestinal hemorrhage type Qualified Code(s): K92.2 - Gastrointestinal hemorrhage, unspecified
[2018-03-22] MEDS ORDERED: 0.9 % Sodium Chloride 1,000 ML IVC SCH (18:15)
[2018-03-22] MEDS ORDERED: 0.9 % Sodium Chloride 1,000 ML ONE (18:19)
[2018-03-22] MEDS: Pantoprazole 40 MG VIAL IVP SCH (18:20)
[2018-03-22 18:39] LABS: Hematocrit 35.9 % (35.3-44.9); Hemoglobin 11.6 g/dL (11.5-15.4)
[2018-03-23] MEDS: MetroNIDAZOLE 500 MG/100 ML 500 MG/100 ML BAG IVPB SCH ×4 (00:45→23:21)
[2018-03-23] MEDS: Insulin LISPRO 300 UNITS/3 ML VIAL SQ SCH ×5 (00:45→23:22)
[2018-03-23 04:44] LABS: Basophils # 0.1 K/mcL (0.0-0.2); Basophils % 0.7 %; Eosinophils # 0.2 K/mcL (0.0-0.6); Eosinophils % 2.4 %; Hematocrit 33.1 % (35.3-44.9); Hemoglobin 10.8 g/dL (11.5-15.4); Immature Granulocytes % 0.2 % (0-4); Lymphocytes # 1.2 K/mcL (0.6-4.6); Lymphocytes % 13.8 %; Mean Corpuscular HGB Conc 32.6 g/dL (31.6-35.5); Mean Corpuscular Volume 97.9 fL (83.0-100.0); Mean Platelet Volume 11.3 fL (9.4-12.4); Monocytes # 1.5 K/mcL (0.0-1.3); Monocytes % 17.2 %; Neutrophils # 5.7 K/mcL (1.6-8.9); Platelet Count 265 K/mcL (140-400); Red Blood Count 3.38 M/mcL (3.82-4.97); Red Cell Distribution Width 16.1 % (11.5-14.5); Segmented Neutrophils % 65.7 %
[2018-03-23 05:03] LABS: BUN/Creatinine Ratio 18 (6-26); Blood Urea Nitrogen 14 mg/dL (8-23); Calcium 8.1 mg/dL (8.6-10.3); Carbon Dioxide 24 mEq/L (23-29); Chloride 109 mEq/L (98-107); Glucose 103 mg/dL (70-105); Osmolality,Calculated 289 (280-300); Potassium 3.7 mEq/L (3.5-5.1); Sodium 139 mEq/L (136-145); eGFR For Non-African Americans > 60 (> 60)
[2018-03-23] MEDS: Pantoprazole 40 MG VIAL IVP SCH ×2 (05:55→17:50)
--- NOTE | 2018-03-23 08:03 | Event Note ---
Date of Encounter: 03/23/18 Time of Encounter: 08:02 Given that patient's family wishes to proceed no intervention at this time, surgery will sign off. Please call or reconsult if questions or needs arise. Please call or reconsult if condition progressed and family would like to discuss the possibility of interventions. Thank you for allowing us to participate in Miss Almeida's care
[2018-03-23] MEDS ORDERED: Furosemide 20 MG/2 ML VIAL IVP ONE (09:35)
[2018-03-23] MEDS: Multivit/Ca/Min/Fe/FA 1 TAB TABLET PO SCH (09:50)
[2018-03-23] MEDS: PHENobarbital 32.4 MG TABLET PO SCH ×3 (09:50→21:35)
[2018-03-23] MEDS: Folic Acid 1 MG TABLET PO SCH (09:50)
[2018-03-23] MEDS: levETIRAcetam 500 MG/5 ML UDC PO SCH ×2 (09:51→21:35)
--- NOTE | 2018-03-23 10:06 | Internal Med Progress Note ---
Hospitalist Progress Note - Encounter Date of Encounter: 03/23/18 Time of Encounter: 09:53 - Subjective Interval History: Pt seen and examined at bedside this morning in no acute distress. She is significantly more awake this morning, improved from yesterday when she was barely arousable. Smiling and responsive to verbal and tactile stimuli. Responds to name, and able to communicate 1 word at a time. Distinctly was able to say the word, 'home' and smiled at mention of her . Per RN, no acute events overnight. Pt is s/p 3 U PRBC total since admission. Hb improved to 10.8 this morning. BP is 106/81. Surgery has signed off. Will reconsult if necessary. Plan to monitor for the next few days - Exam Vitals: Temp Pulse Resp BP Pulse Ox 97.9 F 92 18 106/81 95 03/23/18 07:16 03/23/18 07:16 03/23/18 07:16 03/23/18 07:16 03/23/18 07:16 Exam: GEN: Significantly more awake, arousable today; arousable to verbal and tactile stimuli; responds to name; NAD resting in bed HEENT: Atraumatic, Normocephalic, EOMI CARDIO: RRR, no murmurs, rubs, gallops RESP: CTAB, no wheezes, rhonchi, rales; dry cough ABD: Soft, non-distended, non-tender, no guarding EXT: SCD on right lower extremity, not left due chronic DVT; 1+ pitting edema to knees bilaterally NEURO: AOx1; Hemiplegia SKIN: sacral decubitus ulcer - Assessment and Plan (1) GI bleeding Current Visit: Yes Status: Acute Assessment and Plan: 88 y/o F with PMHx DVT managed with eliquis, s/p brain surgery, seizures, colitis admitted due to GI bleed in [facility] FOBT - positive on admission Colitis - on abx Hbt/Hct was 10.4/33.4 on admission - progressively dropped to low of 7.1; Pt transfused 3U PRBCs over the past 3 days; Hb/Hct today = 10.4/32.1 BP dropped and reached as low as 70s/40s - with transfusions, BP increased and has remained in 100s/80s CT Abd/Pelvis w/ contrast - Evidence of contrast extravasation is seen within inferior aspect of rectum along posterior wall Today, pt is more alert and arousable to tactile and verbal stimulation; BP stable - 106/81; Improved condition from yesterday Pt remains DNR-CC PLAN: Hb/Hct today: 10.8/33.1 - plan for CBC q8h; Continue to monitor vitals and monitor for signs of deterioration Cont IV Protonix BID Cont Cipro and Flagyl - tx of infectious colitis Cont to monitor pt for now - will rediscuss options with IR after a few days; Surgery signing off case for now prefers comfort care - DNRCC BMP in the AM (2) Seizure disorder Current Visit: Yes Status: Chronic Assessment and Plan: Cont Keppra and Phenobarbital (3) Hx of deep venous thrombosis Current Visit: No Status: Chronic Assessment and Plan: Hx of DVT in Left Lower Extremity PLAN: SCD on Right Leg Only Cont to hold Elliquis DVT Prophylaxis: SCDs - ONLY on RIGHT LEG; Evidence on chronic DVT on left leg - Time Spent with Patient Total time spent is greater than 50% in coordination of care (as documented) at patient's floor/unit and/or counseling patient: less than 15 minutes Plan of Care Discussed with: nurse Internal Medicine: Result - Labs CBC & Chem 7: 03/23/18 12:49 03/23/18 03:50 Labs: Short CBC 03/22/18 03/22/18 03/23/18 Range/Units 09:54 18:26 03:50 WBC 8.7 (4.3-11.1) K/mcL Hgb 9.2 L 11.6 D 10.8 L (11.5-15.4) g/dL Hct 27.9 L 35.9 33.1 L (35.3-44.9) % Plt Count 265 (140-400) K/mcL Neutrophils # 5.7 (1.6-8.9) K/mcL BMP 03/23/18 03:50 Sodium 139 Potassium 3.7 Chloride 109 H Carbon Dioxide 24 BUN 14 Creatinine 0.80 Glucose 103 Calcium 8.1 L - ABG Interpretation ABG results: PT/INR, D-dimer PT 14.6 Seconds (9.4-12.1) H 03/16/18 15:50 Consult Discharge Plan - Plan Referrals: NONE,PCP [Primary Care Provider] - (1) GI bleeding Qualifiers: GI bleed type/associated pathology: unspecified gastrointestinal hemorrhage type Qualified Code(s): K92.2 - Gastrointestinal hemorrhage, unspecified
[2018-03-23 13:18] LABS: Basophils % 0.4 %; Eosinophils # 0.2 K/mcL (0.0-0.6); Eosinophils % 1.9 %; Hemoglobin 11.1 g/dL (11.5-15.4); Immature Granulocytes % 0.4 % (0-4); Lymphocytes # 1.2 K/mcL (0.6-4.6); Lymphocytes % 12.8 %; Mean Corpuscular HGB Conc 32.6 g/dL (31.6-35.5); Mean Corpuscular Hemoglobin 31.7 pg (28.0-33.3); Mean Corpuscular Volume 97.1 fL (83.0-100.0); Mean Platelet Volume 10.7 fL (9.4-12.4); Monocytes # 1.5 K/mcL (0.0-1.3); Monocytes % 16.4 %; Neutrophils # 6.1 K/mcL (1.6-8.9); Platelet Count 285 K/mcL (140-400); Red Cell Distribution Width 15.9 % (11.5-14.5); Segmented Neutrophils % 68.1 %
[2018-03-24 06:48] LABS: Basophils # 0.1 K/mcL (0.0-0.2); Basophils % 0.5 %; Eosinophils # 0.1 K/mcL (0.0-0.6); Eosinophils % 1.1 %; Hematocrit 36.2 % (35.3-44.9); Hemoglobin 11.8 g/dL (11.5-15.4); Immature Granulocytes % 0.4 % (0-4); Lymphocytes # 0.9 K/mcL (0.6-4.6); Lymphocytes % 9.8 %; Mean Corpuscular HGB Conc 32.6 g/dL (31.6-35.5); Mean Corpuscular Hemoglobin 31.3 pg (28.0-33.3); Mean Platelet Volume 10.3 fL (9.4-12.4); Monocytes # 1.3 K/mcL (0.0-1.3); Monocytes % 13.6 %; Neutrophils # 7.2 K/mcL (1.6-8.9); Platelet Count 301 K/mcL (140-400); Red Blood Count 3.77 M/mcL (3.82-4.97); Red Cell Distribution Width 15.3 % (11.5-14.5); Segmented Neutrophils % 74.6 %
[2018-03-24 07:08] LABS: BUN/Creatinine Ratio 15 (6-26); Blood Urea Nitrogen 11 mg/dL (8-23); Carbon Dioxide 25 mEq/L (23-29); Chloride 106 mEq/L (98-107); Glucose 103 mg/dL (70-105); Osmolality,Calculated 292 (280-300); Potassium 3.2 mEq/L (3.5-5.1); Sodium 141 mEq/L (136-145); eGFR For Non-African Americans > 60 (> 60)
[2018-03-24] MEDS: PHENobarbital 32.4 MG TABLET PO SCH ×3 (08:41→22:40)
[2018-03-24] MEDS: levETIRAcetam 500 MG/5 ML UDC PO SCH ×2 (08:41→22:41)
[2018-03-24] MEDS: Folic Acid 1 MG TABLET PO SCH (08:41)
[2018-03-24] MEDS: Multivit/Ca/Min/Fe/FA 1 TAB TABLET PO SCH (08:42)
[2018-03-24] MEDS: Pantoprazole 40 MG VIAL IVP SCH ×2 (08:42→17:45)
[2018-03-24] MEDS: MetroNIDAZOLE 500 MG/100 ML 500 MG/100 ML BAG IVPB SCH ×2 (08:44→15:50)
[2018-03-24] MEDS: Insulin LISPRO 300 UNITS/3 ML VIAL SQ SCH ×3 (08:56→17:45)
--- NOTE | 2018-03-24 09:10 | Internal Med Progress Note ---
Hospitalist Progress Note - Encounter Date of Encounter: 03/24/18 Time of Encounter: 12:50 - Subjective Interval History: No acute events. Patient eating breakfast, pleasant. - Exam Vitals: Temp Pulse Resp BP Pulse Ox 98.6 F 90 16 114/78 94 03/24/18 08:04 03/24/18 08:04 03/24/18 08:04 03/24/18 08:04 03/24/18 08:04 Exam: GEN: Alert, AAO x1, cooperative with exam. Eating breakfast. HEENT: Atraumatic, Normocephalic, EOMI CARDIO: RRR, no murmurs, rubs, gallops RESP: CTAB, no wheezes, rhonchi, rales; decreased breath sounds at base. ABD: Soft, non-distended, non-tender, no guarding EXT: SCD on right lower extremity, not left due chronic DVT; 1+ pitting edema to knees bilaterally NEURO: AOx1; Hemiplegia SKIN: sacral decubitus ulcer. Warm, dry. Pallor significantly improved. - Assessment and Plan (1) GI bleeding Current Visit: Yes Status: Acute Assessment and Plan: 88 y/o F with history DVT managed with eliquis on admission, s/p brain surgery, seizures, colitis admitted due to GI bleed in [facility]. She also presented with colitis on antibiotics. On admission hemoglobin was 10.4. Eliquis was held on admission. Bleeding temporarily resolved but on 03/21 it appeared that bleeding re-occured. Her stool became bloody, she was hypotensive with BP running 70/40 and tachycardic. She has required 3 units of PRBC. A stat CT an frank of abdomen/pelvis showed contrast extravasation in inferior and posterior portion of rectum. Her is POA and during this time informed she is DNR CC, would not like invasive therapy. Surgery team recommended IR consult for possible embolization of bleeding. IR physician spoke with and after discussion opted to monitor until Monday since her hemodynamics appeared to improve. Her blood pressure and heart rate are in normal limits and patient is alert this morning. Hemoglobin stable in 11 range. Continue IV Protonix. She is advance to soft texture diet only due to aspirating liquids. Surgery has signed off given stability. We are monitoring closely that she can advance diet without any further rectal bleed. Though she has history of DVT, she will likely need Eliquis held upon discharge. The risks of anticoagulation outweigh the benefits. Prognosis remains guarded. (2) Seizure disorder Current Visit: Yes Status: Chronic Assessment and Plan: Continue home medication phenobarbital and Keppra. (3) Colitis Current Visit: No Status: Chronic Assessment and Plan: Continue Cipro/Flagyl. 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 As mentioned above, there is high likely kennedy that Eliquis will not be resumed on discharge since the risks outweigh the benefits in this case. DVT Prophylaxis: SCDs - ONLY on RIGHT LEG; Evidence on chronic DVT on left leg - Time Spent with Patient Total time spent is greater than 50% in coordination of care (as documented) at patient's floor/unit and/or counseling patient: Internal Medicine: Result - Labs CBC & Chem 7: 03/24/18 06:39 03/24/18 06:39 Labs: Short CBC 03/23/18 03/24/18 Range/Units 12:49 06:39 WBC 9.0 9.6 (4.3-11.1) K/mcL Hgb 11.1 L 11.8 (11.5-15.4) g/dL Hct 34.0 L 36.2 (35.3-44.9) % Plt Count 285 301 (140-400) K/mcL Neutrophils # 6.1 7.2 (1.6-8.9) K/mcL BMP 03/24/18 06:39 Sodium 141 Potassium 3.2 L Chloride 106 Carbon Dioxide 25 BUN 11 Creatinine 0.74 Glucose 103 Calcium 8.0 L - ABG Interpretation ABG results: PT/INR, D-dimer PT 14.6 Seconds (9.4-12.1) H 03/16/18 15:50 - Impressions Impressions Videofluoroscopic Swallow 03/23/18 14:39 IMPRESSION: Aspiration with thin and honey consistency contrast and deep penetration with nectar consistency contrast. Please see separate speech pathology report for full discussion of findings and recommendations. D/ / Anurag Yip MD / Anurag Yip MD Interpreting Provider: Anurag Yip MD Consult Discharge Plan - Plan Referrals: NONE,PCP [Primary Care Provider] - (1) GI bleeding Qualifiers: GI bleed type/associated pathology: unspecified gastrointestinal hemorrhage type Qualified Code(s): K92.2 - Gastrointestinal hemorrhage, unspecified
[2018-03-25] MEDS: MetroNIDAZOLE 500 MG/100 ML 500 MG/100 ML BAG IVPB SCH ×3 (00:47→16:22)
[2018-03-25] MEDS: Insulin LISPRO 300 UNITS/3 ML VIAL SQ SCH ×4 (00:57→18:21)
[2018-03-25] MEDS: Pantoprazole 40 MG VIAL IVP SCH ×2 (06:04→18:24)
[2018-03-25 06:33] LABS: Hematocrit 35.9 % (35.3-44.9); Hemoglobin 11.8 g/dL (11.5-15.4); Mean Corpuscular HGB Conc 32.9 g/dL (31.6-35.5); Mean Corpuscular Hemoglobin 31.6 pg (28.0-33.3); Mean Corpuscular Volume 96.2 fL (83.0-100.0); Mean Platelet Volume 10.2 fL (9.4-12.4); Platelet Count 315 K/mcL (140-400); Red Blood Count 3.73 M/mcL (3.82-4.97); Red Cell Distribution Width 15.1 % (11.5-14.5)
[2018-03-25 06:40] LABS: Lymphocytes # 1.4 K/mcL (0.6-4.6)
[2018-03-25 06:51] LABS: BUN/Creatinine Ratio 20 (6-26); Blood Urea Nitrogen 12 mg/dL (8-23); Calcium 8.2 mg/dL (8.6-10.3); Carbon Dioxide 25 mEq/L (23-29); Chloride 104 mEq/L (98-107); Glucose 116 mg/dL (70-105); Osmolality,Calculated 285 (280-300); Potassium 2.9 mEq/L (3.5-5.1); Sodium 137 mEq/L (136-145); eGFR For Non-African Americans > 60 (> 60)
[2018-03-25 07:05] LABS: Eosinophils # 0.2 K/mcL (0.0-0.6); Monocytes # 1.2 K/mcL (0.0-1.3); Neutrophils # 7.2 K/mcL (1.6-8.9)
[2018-03-25 07:06] LABS: Platelet Estimate Normal (Normal)
[2018-03-25 07:07] LABS: Reactive Lymphocytes Present (Not Present)
[2018-03-25] MEDS ORDERED: Potassium Chloride 40 MEQ, Lidocaine 1% 2 ML in D5% in Water 500 ML IVPB ONE (08:17)
--- NOTE | 2018-03-25 10:09 | Internal Med Progress Note ---
Hospitalist Progress Note - Encounter Date of Encounter: 03/25/18 Time of Encounter: 09:00 - Subjective Interval History: No acute events. Patient at baseline mental status. - Exam Vitals: Temp Pulse Resp BP Pulse Ox 99 F 90 18 116/66 91 03/25/18 06:30 03/25/18 06:30 03/25/18 06:30 03/25/18 06:30 03/25/18 06:30 Exam: GEN: Alert, AAO x1, HEENT: Atraumatic, Normocephalic, EOMI CARDIO: RRR, no murmurs, rubs, gallops RESP: CTAB, no wheezes, rhonchi, rales; decreased breath sounds at base. ABD: Soft, non-distended, non-tender, no guarding EXT: SCD on right lower extremity, not left due chronic DVT; 1+ pitting edema to knees bilaterally NEURO: AOx1; Hemiplegia SKIN: sacral decubitus ulcer. Warm, dry. Pallor significantly improved. - Assessment and Plan (1) GI bleeding Current Visit: Yes Status: Acute Assessment and Plan: 88 y/o F with history DVT managed with eliquis on admission, s/p brain surgery, seizures, colitis admitted due to GI bleed in [facility]. She also presented with colitis on antibiotics. On admission hemoglobin was 10.4. Eliquis was held on admission. Bleeding temporarily resolved but on 03/21 it appeared that bleeding re-occured. Her stool became bloody, she was hypotensive with BP running 70/40 and tachycardic. She has required 3 units of PRBC. A stat CT angio of abdomen/pelvis showed contrast extravasation in inferior and posterior portion of rectum. Her is POA and during this time informed she is DNR CC, would not like invasive therapy. Surgery team recommended IR consult for possible embolization of bleeding. IR physician spoke with and after discussion opted to monitor until Monday since her hemodynamics appeared to improve. Her blood pressure and heart rate are in normal limits and patient is alert this morning. Hemoglobin stable in 11 range. Continue IV Protonix. She is advance to soft texture diet only due to aspirating liquids. Surgery has signed off given stability. We are monitoring closely that she can advance diet without any further rectal bleed. Though she has history of DVT, she will likely need Eliquis held upon discharge. The risks of anticoagulation outweigh the benefits. Prognosis remains guarded. I discussed the case with . She has remained hemodynamically stable and anemia appears stable as well. Likely discharge tomorrow. (2) Seizure disorder Current Visit: Yes Status: Chronic Assessment and Plan: Continue home medication phenobarbital and Keppra. (3) Colitis Current Visit: No Status: Chronic Assessment and Plan: Continue Cipro/Flagyl. 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 As mentioned above, there is high likely kennedy that Eliquis will not be resumed on discharge since the risks outweigh the benefits. DVT Prophylaxis: SCDs - ONLY on RIGHT LEG; Evidence on chronic DVT on left leg - Summary of Assessment and Plan Summary of Assessment and Plan: GI bleeding - Reported bloody stool. Guaiac stool is positive. - Will transfuse if hemoglobin less than 7.0. - Recent infectious colitis, she was placed on Augmentin.c/w Cipro and flagyl(last dose today) - c/w PPI drip - Plan for EGD , colonoscopy today. h/o DVT - Couldn't clarify the timing of event from her or pervious records. Appears to be on coumadin in 2016. - Hold eliquis given GI bleed - Will attempt to clarify history. Couldn't reach . - Repeat LE US doppler. Seizure disorder - home medication phenobarbital and Keppra when talking PO. DVT Prophylaxis: - Hold Eliquis due to GI bleeding. - Time Spent with Patient Total time spent is greater than 50% in coordination of care (as documented) at patient's floor/unit and/or counseling patient: Internal Medicine: Result - Labs CBC & Chem 7: 03/25/18 06:13 03/25/18 06:13 Labs: Short CBC 03/25/18 Range/Units 06:13 WBC 10.0 (4.3-11.1) K/mcL Hgb 11.8 (11.5-15.4) g/dL Hct 35.9 (35.3-44.9) % Plt Count 315 (140-400) K/mcL Neutrophils # 7.2 (1.6-8.9) K/mcL BMP 03/25/18 06:13 Sodium 137 Potassium 2.9 L Chloride 104 Carbon Dioxide 25 BUN 12 Creatinine 0.61 Glucose 116 H Calcium 8.2 L - ABG Interpretation ABG results: PT/INR, D-dimer PT 14.6 Seconds (9.4-12.1) H 03/16/18 15:50 Consult Discharge Plan - Plan Referrals: NONE,PCP [Primary Care Provider] - (1) GI bleeding Qualifiers: GI bleed type/associated pathology: unspecified gastrointestinal hemorrhage type Qualified Code(s): K92.2 - Gastrointestinal hemorrhage, unspecified
[2018-03-25] MEDS: levETIRAcetam 500 MG/5 ML UDC PO SCH ×2 (11:17→20:42)
[2018-03-25] MEDS: Folic Acid 1 MG TABLET PO SCH (11:17)
[2018-03-25] MEDS: Multivit/Ca/Min/Fe/FA 1 TAB TABLET PO SCH (11:17)
[2018-03-25] MEDS: PHENobarbital 32.4 MG TABLET PO SCH ×3 (11:17→20:42)
[2018-03-26] MEDS: Insulin LISPRO 300 UNITS/3 ML VIAL SQ SCH ×4 (00:20→20:19)
[2018-03-26] MEDS: MetroNIDAZOLE 500 MG/100 ML 500 MG/100 ML BAG IVPB SCH ×3 (00:27→15:11)
[2018-03-26 04:11] LABS: Hematocrit 37.5 % (35.3-44.9); Mean Corpuscular Hemoglobin 31.3 pg (28.0-33.3); Mean Corpuscular Volume 97.7 fL (83.0-100.0); Platelet Count 296 K/mcL (140-400); Red Blood Count 3.84 M/mcL (3.82-4.97); Red Cell Distribution Width 14.9 % (11.5-14.5)
[2018-03-26 04:30] LABS: BUN/Creatinine Ratio 13 (6-26); Blood Urea Nitrogen 8 mg/dL (8-23); Calcium 7.9 mg/dL (8.6-10.3); Carbon Dioxide 26 mEq/L (23-29); Chloride 107 mEq/L (98-107); Glucose 107 mg/dL (70-105); Osmolality,Calculated 287 (280-300); Potassium 3.2 mEq/L (3.5-5.1); Sodium 139 mEq/L (136-145); eGFR For Non-African Americans > 60 (> 60)
[2018-03-26 04:48] LABS: Eosinophils # 0.2 K/mcL (0.0-0.6); Lymphocytes # 1.2 K/mcL (0.6-4.6); Monocytes # 0.8 K/mcL (0.0-1.3); Neutrophils # 7.6 K/mcL (1.6-8.9); Platelet Estimate Normal (Normal)
[2018-03-26] MEDS: Pantoprazole 40 MG VIAL IVP SCH ×2 (05:51→18:17)
[2018-03-26] MEDS ORDERED: Potassium Chloride 40 MEQ, Lidocaine 1% 2 ML in D5% in Water 500 ML IVPB ONE (08:47)
[2018-03-26] MEDS: levETIRAcetam 500 MG/5 ML UDC PO SCH ×2 (09:49→20:19)
[2018-03-26] MEDS: PHENobarbital 32.4 MG TABLET PO SCH ×3 (09:49→20:19)
[2018-03-26] MEDS: Folic Acid 1 MG TABLET PO SCH (09:49)
[2018-03-26] MEDS: Multivit/Ca/Min/Fe/FA 1 TAB TABLET PO SCH (09:49)
--- NOTE | 2018-03-26 10:58 | Discharge Summary ---
<rEi Wolfe - Last Filed: 03/26/18 17:56> - NOTES TO OUTPATIENT PROVIDER Notes to Outpatient Provider: Monitor vitals for worsening condition; consider f/u cbc. Follow Chronic Decubitus Ulcer Orders not resulted at time of discharge: Pending orders 03/27/18 04:00 BMP [Basic Metabolic Panel] AM 0400 03/28/18 04:00 BMP [Basic Metabolic Panel] AM 0400 03/29/18 04:00 BMP [Basic Metabolic Panel] AM 0400 03/30/18 04:00 BMP [Basic Metabolic Panel] AM 0400 Date of Encounter: 03/26/18 Time of Encounter: 10:40 - Discharge Diagnosis (1) GI bleeding Priority: Primary Status: Acute Assessment and Plan: Hb/Hct stable today at 12.0/37.5 Hemodynamically appropriate for age IR has noted that with improving condition, they will hold off on any intervention at this time; Surgery has signed off as well Plan to discharge to [facility] Qualifiers: GI bleed type/associated pathology: unspecified gastrointestinal hemorrhage type Qualified Code(s): K92.2 - Gastrointestinal hemorrhage, unspecified (2) Seizure disorder Priority: Secondary Status: Chronic Assessment and Plan: Cont home medications phenobarbital and keppra (3) Hx of deep venous thrombosis Priority: Secondary Status: Chronic Assessment and Plan: Plan to hold elliquis for now; Due to GI bleed, risk of restarting medication outweighs benefit; will defer to PCP for long-term management. Hospital course: Ms. Almeida is a 88 year old female with PMHx significant for remote CVA, s/p brain surgery, seizure, and chronic DVT (on Eliquis) who presented from [facility] due to concern for GI Bleed after 1 episode of bloody stool. In ED, patient was noted to have low blood pressure (100/47) and positive stool guiac. Additionally, pt had been on antibiotics to treat infectious colitis. Admitted for further evaluation and management. Pt initially remained stable with Hb of 10.4 on admission (Eliquis was held). However, Hb continue to drop to eventual low of 7.1. Surgery was unable to do colonoscopy due to poor bowel prep. CT angiogram of abd/pelvis revealed contrast extravasation along inferior aspect of rectum along the posterior wall. Patient's BP dropped to 70/40s and she became somnolent. However, as patient was DNR-CC, her (POA) did not want her transferred to ICU and did not want pressors, intubation, or CPR. Pt was transfused 2U PRBC, and eventually 3U PRBC in total. Decision by IR, surgery, and patient family was made to postpone any surgical intervention at that time. Over the course of the next few days, patient gradually became more alert. Blood pressure and heart rate are within normal limits today. Hb stable at 12. Due to aspiration risk of liquids, pt currently eating soft texture diet. Plan to discharge to [facility]. Discharge discussed with: social work Time spent discussing smoking cessation with patient: 3 to 10 minutes - Time Spent with Patient Total time spent providing and/or coordinating discharge services: Less than 30 minutes - Discharge Medications Home Medications: Calcium Carbonate [Calcium] 600 mg PO BID 07/20/15 [History] Folic Acid 1 mg PO DAILY 07/20/15 [History] PHENobarbital [Phenobarbital] 32.4 mg PO TID 07/20/15 [History] Bisacodyl [Dulcolax] 10 mg RC DAILY 10/09/15 [History] Magnesium Hydroxide [Milk of Magnesia] 400 mg PO DAILY PRN 10/09/15 [History] Multivitamin [Multivitamins] 1 each PO DAILY 10/09/15 [History] Acetaminophen [Non-Aspirin] 650 mg PO Q6H 03/16/18 [History] Amlodipine Besylate 2.5 mg PO DAILY 03/16/18 [History] Guaifenesin [Tussin] 100 mg PO Q4H PRN 03/16/18 [History] Hydrocortisone/Pramoxine [Analpram Hc 1% Cream] 30 gm TP QID 03/16/18 [History] Lactulose 30 ml PO DAILY 03/16/18 [History] LevETIRAcetam [Keppra] 500 mg PO BID 03/16/18 [History] Polyethylene Glycol 3350 [MiraLAX] 17 gm PO DAILY PRN 03/16/18 [History] Sennosides/Docusate Sodium [Docusate Sodium-Senna Tablet] 1 tab PO BID 03/16/18 [History] Pantoprazole [Protonix] 40 mg IVP Q12HR vial 03/26/18 [Rx] Allergies/Adverse Reactions: Allergy/AdvReac Type Severity Reaction Status Date / Time Hydromorphone [From Dilaudid] Allergy Unknown See Verified 03/16/18 19:14 Comments phenytoin [From Dilantin] Allergy Unknown See Verified 03/16/18 19:14 Comments tetracycline [Tetracycline] Allergy Unknown See Verified 03/16/18 19:14 Comments Date of admission: 03/16/18 17:43 Primary care physician: PCP NONE Consults: 03/16/18 17:47 Consult to Surgery [CONS] Routine Consulting Provider: Jesus Gilbert Reason for Consult: GI bleeding Call Completed: Yes 03/19/18 07:27 Consult to Invasive Line Access Team [CONS] Routine Reason for Consult: poor vascular access Line Type: EPIV 03/23/18 10:18 Consult to Speech Therapy [CONS] Routine Comment: Evaluate, develop and implement POC Reason for Consult: Pt tolerated meds with applesauce, but did not tolerate drinking sips of water via straw - swallow eval. Thank you! Call Completed: No Discharging clinician: Eri Wolfe Anticipated date of discharge: 03/26/18 - Constitutional Vitals: Temp Pulse Resp BP Pulse Ox 98.4 F 103 12 98/54 90 03/26/18 06:28 03/26/18 06:28 03/26/18 06:28 03/26/18 06:28 03/26/18 06:28 General appearance: Present: A&O X 1 Exam: GEN: AOx1 (to name); NAD HEENT: Normocephalic, atraumatic, EOMI CARDIO: RRR, no murmurs, rubs, gallops RESP: CTAB, no wheezes, rhonchi, rales ABD: soft, non-tendern, non-distended NEURO: Hemiplegia; AOx1; alert EXT: +1 pitting edema b/l; SCDs on right leg, not left due chronic DVT on left SKIN: sacral decubitus ulcer stage 2-3 on lower back - Patient Status Disposition: Transfer SNF Condition: Fair Functional capacity at discharge: bed bound Overall status at discharge: patient is progressing back to baseline - Discharge Instructions Follow Up With: NONE,PCP [Primary Care Provider] - - Diet and Activity Activity: other (Bed Bound) Diet: other (Soft Texture Diet) <Shantelle Mcmullen - Last Filed: 03/27/18 01:07> Orders not resulted at time of discharge: Pending orders 03/27/18 00:17 Venous Doppler [EV venous imaging UE LT] Routine 03/27/18 04:00 BMP [Basic Metabolic Panel] AM 0400 03/28/18 04:00 BMP [Basic Metabolic Panel] AM 0400 03/29/18 04:00 BMP [Basic Metabolic Panel] AM 0400 03/30/18 04:00 BMP [Basic Metabolic Panel] AM 0400 - Discharge Diagnosis (1) GI bleeding Status: Acute Qualifiers: GI bleed type/associated pathology: unspecified gastrointestinal hemorrhage type Qualified Code(s): K92.2 - Gastrointestinal hemorrhage, unspecified (2) Seizure disorder Status: Chronic (3) Colitis Status: Chronic (4) 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 Almeida is a 88 year old female - Time Spent with Patient Total time spent providing and/or coordinating discharge services: Date of admission: 03/16/18 17:43 Primary care physician: PCP NONE Consults: 03/16/18 17:47 Consult to Surgery [CONS] Routine Consulting Provider: Jesus Gilbert Reason for Consult: GI bleeding Call Completed: Yes 03/19/18 07:27 Consult to Invasive Line Access Team [CONS] Routine Reason for Consult: poor vascular access Line Type: EPIV 03/23/18 10:18 Consult to Speech Therapy [CONS] Routine Comment: Evaluate, develop and implement POC Reason for Consult: Pt tolerated meds with applesauce, but did not tolerate drinking sips of water via straw - swallow eval. Thank you! Call Completed: No - Constitutional Vitals: Temp Pulse Resp BP Pulse Ox 98.4 F 100 19 120/74 95 03/26/18 23:27 03/26/18 23:27 03/26/18 23:27 03/26/18 23:27 03/26/18 23:27 - Attending Attestation I examined this patient and my medical decision-making was reviewed with the Resident Physician. I agree with the documented findings, disposition and treatment plan as described except to the extent set forth below. We had discussion daily on prognosis of patient. See progress notes. Past medical history is complicated with VTEs with GI bleed. During this admission, anemia became severe to point of instability with BP of 70/40s and tachycardia. A CTA abdomen/pelvis showed bleeding in the rectum. She did have bleeding appeared to stop after monitoring and PRBC transfusion. IR was consulted and since bleeding was resolved, no embolization was needed. At this time, the risks of anticoagulation outweigh the benefits. The was informed of this and we also talked about progression of dementia as well. Her diet is poor and she can only tolerate solid foods, and aspirates liquids. Addendum entered and electronically signed by Juan José Solo MD 03/28/18 11:12: Date of discharge 03/28/18 Patient was diagnosed with acute deep vein thrombosis involving her left upper extremity. After discussion with her who is the primary caregiver, patient was placed back on Eliquis. She does remain at risk for bleeding as she is now back on anticoagulation and will need close follow-up of her hemoglobin levels. If patient does develop worsening anemia, this needs to be addressed as outpatient and anticoagulation may be stopped at that point. Would recommend checking CBC later this week and again early next week. Addendum entered and electronically signed by Eri Wolfe 03/29/18 10:56:
--- NOTE | 2018-03-26 18:13 | Physician Discharge Referral ---
Addendum entered and electronically signed by Eri Wolfe 03/29/18 10:16: Addendum entered and electronically signed by Juan José Solo MD 03/28/18 12:24: Eliquis dosage has been changed to 5 mg PO BID for acute DVT in left upper extremity. Original Note: <Eri Wolfe - Last Filed: 03/26/18 18:12> [facility] Referral Info Transfer To: SNF Provider in Charge after Transfer: PCP Institutional Level of Care: Skilled - Diagnosis (1) GI bleeding Priority: Primary Status: Acute (2) Seizure disorder Priority: Secondary Status: Chronic (3) Hx of deep venous thrombosis Priority: Secondary Status: Chronic Prognosis: Fair Aware of Diagnosis: Family Aware of Prognosis: Family - Transfer Medications Home Medications: Calcium Carbonate [Calcium] 600 mg PO BID 07/20/15 [History] Folic Acid 1 mg PO DAILY 07/20/15 [History] PHENobarbital [Phenobarbital] 32.4 mg PO TID 07/20/15 [History] Bisacodyl [Dulcolax] 10 mg RC DAILY 10/09/15 [History] Magnesium Hydroxide [Milk of Magnesia] 400 mg PO DAILY PRN 10/09/15 [History] Multivitamin [Multivitamins] 1 each PO DAILY 10/09/15 [History] Acetaminophen [Non-Aspirin] 650 mg PO Q6H 03/16/18 [History] Amlodipine Besylate 2.5 mg PO DAILY 03/16/18 [History] Guaifenesin [Tussin] 100 mg PO Q4H PRN 03/16/18 [History] Hydrocortisone/Pramoxine [Analpram Hc 1% Cream] 30 gm TP QID 03/16/18 [History] Lactulose 30 ml PO DAILY 03/16/18 [History] LevETIRAcetam [Keppra] 500 mg PO BID 03/16/18 [History] Polyethylene Glycol 3350 [MiraLAX] 17 gm PO DAILY PRN 03/16/18 [History] Sennosides/Docusate Sodium [Docusate Sodium-Senna Tablet] 1 tab PO BID 03/16/18 [History] Pantoprazole [Protonix] 40 mg IVP Q12HR vial 03/26/18 [Rx] Apixaban [Eliquis] 2.5 mg PO BID tablet 03/28/18 [Rx] Allergies/Adverse Reactions: Allergy/AdvReac Type Severity Reaction Status Date / Time Hydromorphone [From Dilaudid] Allergy Unknown See Verified 03/16/18 19:14 Comments phenytoin [From Dilantin] Allergy Unknown See Verified 03/16/18 19:14 Comments tetracycline [Tetracycline] Allergy Unknown See Verified 03/16/18 19:14 Comments - Respiratory Orders Smoking Cessation: Smoking cessation has been advised. For more information, call the [employer] Quit Line at 7-013-RQGK-NOW. - Advance Directives Code Status: DNR-Comfort Care CERTIFICATION: I certify that the transfer of the above named patient to an Extended Care Facility is necessary for the continuing treatment of the diagnosis listed. The above information is true and accurate reflection of patient's current cond ition. Confidential - Redisclosure prohibited without a patient's written consent. 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 For more information, call the [employer] Line at 9-243-XFHS-NOW. - Lab Orders Lab Orders: Other (include drug levels w/frequency) (CBC in 3 days and 1 week after) CERTIFICATION: I certify that the transfer of the above named patient to an Extended Care Facility is necessary for the continuing treatment of the diagnosis listed. The above information is true and accurate reflection of patient's current condition. Confidential - Redisclosure prohibited without a patient's written consent.
[2018-03-27] MEDS: Insulin LISPRO 300 UNITS/3 ML VIAL SQ SCH ×4 (00:14→17:57)
[2018-03-27 05:56] LABS: BUN/Creatinine Ratio 13 (6-26); Blood Urea Nitrogen 9 mg/dL (8-23); Calcium 8.4 mg/dL (8.6-10.3); Carbon Dioxide 27 mEq/L (23-29); Chloride 106 mEq/L (98-107); Glucose 110 mg/dL (70-105); Osmolality,Calculated 287 (280-300); Potassium 3.4 mEq/L (3.5-5.1); Sodium 139 mEq/L (136-145); eGFR For Non-African Americans > 60 (> 60)
[2018-03-27] MEDS: Pantoprazole 40 MG VIAL IVP SCH (06:30)
[2018-03-27] MEDS ORDERED: Potassium Chloride 20 MEQ, Lidocaine 1% 2 ML in D5% in Water 250 ML IVPB ONE (07:39)
[2018-03-27] MEDS: Multivit/Ca/Min/Fe/FA 1 TAB TABLET PO SCH (09:12)
[2018-03-27] MEDS: levETIRAcetam 500 MG/5 ML UDC PO SCH ×2 (09:12→22:18)
[2018-03-27] MEDS: PHENobarbital 32.4 MG TABLET PO SCH ×3 (09:12→22:18)
[2018-03-27] MEDS: Folic Acid 1 MG TABLET PO SCH (09:12)
--- NOTE | 2018-03-27 10:21 | Internal Med Progress Note ---
<Eri Wolfe - Last Filed: 03/27/18 17:11> Hospitalist Progress Note - Encounter Date of Encounter: 03/27/18 Time of Encounter: 10:18 - Subjective Interval History: Pt seen and examined resting comfortably at bedside this morning in no acute distress. Vital signs stable. Awake and eating, smiling, responsive to verbal stimuli. AOx1 - responsive to name. No acute events overnight. Pt noted to have swelling of left arm, but no erythema, rash, wound discharge. Doppler of left upper extremity indicated DVT of left upper extremity. Plan to restart pt on Eliquis despite GI Bleed. Discussed with patient's who noted that restarting Eliquis would be best at this time due to multiple DVTs. Will keep patient overnight to monitor and recheck tomorrow for possible discharge. Pt also noted to have decreased urine output as of this afternoon. Bladder scan showed 500ml Urine. Albarran cath was placed and 700mL of dark urine collected. Will follow up with UA and culture. - Exam Vitals: Temp Pulse Resp BP Pulse Ox 98.7 F 91 16 112/57 95 03/27/18 06:23 03/27/18 06:23 03/27/18 06:23 03/27/18 06:23 03/27/18 06:23 Exam: GEN: AOx1 (responds to name), NAD; pleasant; smiles; 1 word responses HEENT: Atraumatic, normocephalic; Full ROM CARDIO: RRR, no murmurs, rubs, gallops RESP: CTAB, no wheezes, rhonchi, rales ABD: Soft, non-tender, non-distended EXT: 2+ pitting edema bilaterally; Notable edema in Left upper extremity; no erythema, rash NEURO: AOx1; baseline hemiplegia - Assessment and Plan (1) GI bleeding Current Visit: Yes Status: Acute Assessment and Plan: Hb/Hct stable today at 11.5/36.3 Hemodynamically appropriate for age IR has noted that with improving condition, they will hold off on any intervention at this time; Surgery has signed off as well However, due to evidence of DVT in Left Upper extremity - we will restart eliquis, monitor, and will hold off on discharge until tomorrow Plan to discharge to [facility] (2) Seizure disorder Current Visit: Yes Status: Chronic Assessment and Plan: Cont home medications phenobarbital and keppra (3) Hx of deep venous thrombosis Current Visit: No Status: Chronic Assessment and Plan: Plan to hold elliquis for now; Due to GI bleed, risk of restarting medication outweighs benefit; will defer to PCP for long-term management Pt was initially going to be discharged to SNF with eliquis on hold due to admission for GI Bleed Overnight, noticed Left Upper Extremity Swelling Left Upper Extremity Doppler: POSITIVE DVT and SVT(superficial venous thrombosis) Will restart Eliquis after discussion with (POA) on potential risks and benefits of restarting medication Will monitor and check CBC in the AM Possible discharge to [facility] tomorrow (4) Acute urinary retention Current Visit: Yes Status: Acute Assessment and Plan: Pt found to have not voided today by nursing staff Bladder Scan indicated >500mL residual volume in bladder Albarran catheter placed and drained >700mL dark urine BUN/Cr: 9/0.71 Will order UA with microscopy and culture Plan to keep albarran in place for now DVT Prophylaxis: Eliquis 2.5mg BID - Time Spent with Patient Total time spent is greater than 50% in coordination of care (as documented) at patient's floor/unit and/or counseling patient: less than 15 minutes Plan of Care Discussed with: family Internal Medicine: Result - Labs CBC & Chem 7: 03/27/18 14:43 03/27/18 05:23 Labs: BMP 03/27/18 05:23 Sodium 139 Potassium 3.4 L Chloride 106 Carbon Dioxide 27 BUN 9 Creatinine 0.71 Glucose 110 H Calcium 8.4 L - ABG Interpretation ABG results: PT/INR, D-dimer PT 14.6 Seconds (9.4-12.1) H 03/16/18 15:50 Consult Discharge Plan - Plan Instructions: Gastrointestinal Bleeding (DC), Urinary Tract Infection in Women (DC), Dementia (GEN), Sepsis (DC) Referrals: NONE,PCP [Primary Care Provider] - <JuanJ osé Solo - Last Filed: 03/27/18 17:43> Hospitalist Progress Note - Encounter Time of Encounter: 17:38 - Exam Vitals: Temp Pulse Resp BP Pulse Ox 99.0 F 91 15 95/45 95 03/27/18 16:00 03/27/18 16:00 03/27/18 16:00 03/27/18 16:00 03/27/18 16:00 - Assessment and Plan (1) Seizure disorder Current Visit: Yes Status: Chronic (2) 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 Current Visit: No Status: Acute (3) GI bleeding Current Visit: Yes Status: Acute (4) Colitis Current Visit: No Status: Chronic (5) Hx of deep venous thrombosis Current Visit: No Status: Chronic - Time Spent with Patient Total time spent is greater than 50% in coordination of care (as documented) at patient's floor/unit and/or counseling patient: Internal Medicine: Result - Labs CBC & Chem 7: 03/27/18 14:43 03/27/18 05:23 Labs: Short CBC 03/27/18 Range/Units 14:43 WBC 9.0 (4.3-11.1) K/mcL Hgb 11.5 (11.5-15.4) g/dL Hct 36.3 (35.3-44.9) % Plt Count 289 (140-400) K/mcL Neutrophils # 6.8 (1.6-8.9) K/mcL BMP 03/27/18 05:23 Sodium 139 Potassium 3.4 L Chloride 106 Carbon Dioxide 27 BUN 9 Creatinine 0.71 Glucose 110 H Calcium 8.4 L - ABG Interpretation ABG results: PT/INR, D-dimer PT 14.6 Seconds (9.4-12.1) H 03/16/18 15:50 - Attending Attestation I saw evaluated and examined this patient and my medical decision-making was reviewed with the Resident Physician, Eri Wolfe. I agree with the documented findings, disposition and treatment plan as described except to any changes set forth below. We independently had [id number] contact with the patient. 88-year-old female patient hospitalized here with possible GI bleed and anemia. Conservative management. Nurse reported that patient had worsening swelling in her left upper extremity. Patient is mostly nonverbal and not responding to questions. On examination, patient is lying down in bed. Not in distress. Does have swelling in both lower extremities but worse on the left. Swelling present on the left upper extremity also. With mild erythema. Heart sounds are normal. Breath sounds are normal. GI bleed: Hemoglobin levels have stabilized. Eliquis was on hold. However given that patient has new DVT, Eliquis will be restarted. Discussed with patient's was a primary care provider. Acute DVT involving the left upper extremity. Awaiting final report but limited report shows DVT and SVT and left upper extremity. Will resume Eliquis. Monitor blood counts closely. Seizure disorder: Continue phenobarbital and Keppra. Acute urinary retention: Patient has had a bladder scan with greater than 500 mL [address] volume[address] Will Place Albarran catheter. Check urine analysis and culture if needed. Acute on chronic anemia: Hemoglobin level 11.5 today. We will continue to m onitor closely. Moderate risk for complications. Awaiting placement to skilled rehabilitation when stable. <Eri Wolfe - Last Filed: 03/27/18 17:11> (1) GI bleeding Qualifiers: GI bleed type/associated pathology: unspecified gastrointestinal hemorrhage type Qualified Code(s): K92.2 - Gastrointestinal hemorrhage, unspecified <Juan José Solo - Last Filed: 03/27/18 17:43> (3) GI bleeding Qualifiers: GI bleed type/associated pathology: unspecified gastrointestinal hemorrhage type Qualified Code(s): K92.2 - Gastrointestinal hemorrhage, unspecified
[2018-03-27 14:54] LABS: Basophils % 0.4 %; Eosinophils # 0.1 K/mcL (0.0-0.6); Eosinophils % 1.2 %; Hematocrit 36.3 % (35.3-44.9); Hemoglobin 11.5 g/dL (11.5-15.4); Immature Granulocytes % 0.4 % (0-4); Lymphocytes % 11.5 %; Mean Corpuscular HGB Conc 31.7 g/dL (31.6-35.5); Mean Corpuscular Hemoglobin 31.2 pg (28.0-33.3); Mean Corpuscular Volume 98.4 fL (83.0-100.0); Mean Platelet Volume 9.9 fL (9.4-12.4); Monocytes % 10.9 %; Neutrophils # 6.8 K/mcL (1.6-8.9); Platelet Count 289 K/mcL (140-400); Red Blood Count 3.69 M/mcL (3.82-4.97); Red Cell Distribution Width 14.6 % (11.5-14.5); Segmented Neutrophils % 75.6 %
[2018-03-27 17:58] LABS: Bilirubin,Urine Small (Negative); Blood,Urine Negative (Negative); Clarity,Urine Clear (Clear); Color,Urine Dark Yellow (Yellow); Glucose,Urine (UA) Normal (Normal); Ketones,Urine Negative (Negative); Leukocyte Esterase,Urine Negative (Negative); Nitrite,Urine Negative (Negative); Protein,Urine Negative (Neg-Trace); Specific Gravity,Urine 1.015 (1.010-1.025); Urobilinogen,Urine Normal (Normal)
[2018-03-27] MEDS: Apixaban 5 MG TABLET PO SCH (22:18)
[2018-03-28] MEDS: Insulin LISPRO 300 UNITS/3 ML VIAL SQ SCH ×3 (00:20→12:06)
[2018-03-28 04:55] LABS: Basophils # 0.1 K/mcL (0.0-0.2); Basophils % 0.7 %; Eosinophils # 0.2 K/mcL (0.0-0.6); Eosinophils % 2.8 %; Hemoglobin 10.7 g/dL (11.5-15.4); Immature Granulocytes % 0.5 % (0-4); Lymphocytes # 1.6 K/mcL (0.6-4.6); Lymphocytes % 18.3 %; Mean Corpuscular HGB Conc 30.6 g/dL (31.6-35.5); Mean Corpuscular Hemoglobin 30.2 pg (28.0-33.3); Mean Corpuscular Volume 98.9 fL (83.0-100.0); Mean Platelet Volume 9.9 fL (9.4-12.4); Monocytes % 11.8 %; Neutrophils # 5.8 K/mcL (1.6-8.9); Platelet Count 268 K/mcL (140-400); Red Blood Count 3.54 M/mcL (3.82-4.97); Red Cell Distribution Width 14.6 % (11.5-14.5); Segmented Neutrophils % 65.9 %
[2018-03-28 05:11] LABS: BUN/Creatinine Ratio 17 (6-26); Blood Urea Nitrogen 11 mg/dL (8-23); Calcium 8.1 mg/dL (8.6-10.3); Carbon Dioxide 28 mEq/L (23-29); Chloride 109 mEq/L (98-107); Glucose 102 mg/dL (70-105); Osmolality,Calculated 290 (280-300); Potassium 3.5 mEq/L (3.5-5.1); Sodium 140 mEq/L (136-145); eGFR For Non-African Americans > 60 (> 60)
[2018-03-28] MEDS: Multivit/Ca/Min/Fe/FA 1 TAB TABLET PO SCH (09:11)
[2018-03-28] MEDS: PHENobarbital 32.4 MG TABLET PO SCH (09:11)
[2018-03-28] MEDS: levETIRAcetam 500 MG/5 ML UDC PO SCH (09:11)
[2018-03-28] MEDS: Folic Acid 1 MG TABLET PO SCH (09:11)
[2018-03-28] MEDS: Apixaban 5 MG TABLET PO SCH (09:13)
--- NOTE | 2018-03-28 13:28 | Internal Med Progress Note ---
Hospitalist Progress Note - Encounter Date of Encounter: 03/28/18 Time of Encounter: 13:26 - Subjective Interval History: Evaluated patient earlier today. Lying down in bed. Appears comfortable. Denies any pain. Mostly nonverbal. - Exam Vitals: Temp Pulse Resp BP Pulse Ox 98.8 F 93 16 116/67 94 03/28/18 12:07 03/28/18 12:07 03/28/18 12:07 03/28/18 12:07 03/28/18 12:07 Exam: General: Patient is awake and alert. Nonverbal mostly Respiratory: Good respiratory effort. Normal breath sounds. No wheezing or crackles. Cardiovascular: Regular rate and rhythm. s1 and s2 normal No clicks, rubs, gallops, or murmurs. Bilateral pedal edema greater on the left. Abdomen: Abdomen is soft, nontender. Bowel sounds are present Musculoskeletal: Spontaneously moving all extremities. Erythema and edema are also noted on left upper extremity just above the elbow. Skin: warm, dry, intact. - Assessment and Plan (1) Hx of deep venous thrombosis Current Visit: Yes Status: Acute Assessment and Plan: Patient with acute deep vein thrombosis involving left brachial and axillary veins along with superficial venous thrombosis in the left cephalic vein. Pa kadeemnt has been restarted on Eliquis. She will need close monitoring of her hemoglobin levels. Hemoglobin today at 10.7. She will need recheck later this week and again next week. If her hemoglobin drops and she has worsening anemia, consider discontinuing anticoagulation after discussing with . Patricia antoine has been has been made aware of this treatment plan and is in agreement with this. He understands the high risk of complications involved. (2) GI bleeding Current Visit: Yes Status: Acute Assessment and Plan: Patient presented with GI bleeding. He managed conservatively. Initially Maribell edwin was held but patient now diagnosed with left upper extremity DVT. As such Eliquis has been restarted. Patient does remain at high risk for GI bleeding and will need close follow-up as outpatient. Plan is to discharge her back to skilled rehabilitation later today. Continue omeprazole. Monitor hemoglobin levels closely. (3) Seizure disorder Current Visit: Yes Status: Chronic Assessment and Plan: Continue home medications including phenobarbital. Continue seizure precautions. 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 Pressure relieving mattress. (5) Colitis Current Visit: Yes Status: Chronic Assessment and Plan: Completed antibiotic course. (6) Acute urinary retention Current Visit: Yes Status: Acute Assessment and Plan: Patient having acute urinary retention. Greer catheter placed yesterday. Urinalysis does not suggest any infection. She will need outpatient follow-up with urology. - Time Spent with Patient Total time spent is greater than 50% in coordination of care (as documented) at patient's floor/unit and/or counseling patient: Internal Medicine: Result - Labs CBC & Chem 7: 03/28/18 04:36 03/28/18 04:36 Labs: Short CBC 03/27/18 03/28/18 Range/Units 14:43 04:36 WBC 9.0 8.7 (4.3-11.1) K/mcL Hgb 11.5 10.7 L (11.5-15.4) g/dL Hct 36.3 35.0 L (35.3-44.9) % Plt Count 289 268 (140-400) K/mcL Neutrophils # 6.8 5.8 (1.6-8.9) K/mcL BMP 03/28/18 04:36 Sodium 140 Potassium 3.5 Chloride 109 H Carbon Dioxide 28 BUN 11 Creatinine 0.64 Glucose 102 Calcium 8.1 L Urine 03/27/18 Range/Units 17:52 Urine Color Dark Yellow (Yellow) Urine Clarity Clear (Clear) Urine pH 6.0 (5.0-8.0) pH Units Ur Specific [place] 1.015 (1.010-1.025) Urine Protein Negative (Neg-Trace) mg/dL Urine Glucose (UA) Normal (Normal) mg/dL - ABG Interpretation ABG results: PT/INR, D-dimer PT 14.6 Seconds (9.4-12.1) H 03/16/18 15:50 Consult Discharge Plan - Plan Instructions: Gastrointestinal Bleeding (DC), Urinary Tract Infection in Women (DC), Dementia (GEN), Sepsis (DC) Referrals: NONE,PCP [Primary Care Provider] - (with PCP in 1 week.) Ricardo Thomas MD [Partnered Physician] - (in 1-2 weeks for urinary retention) Prescriptions: Apixaban [Eliquis] 5 mg PO BID #60 tablet Omeprazole Magnesium 20 mg PO BID #60 capsule.dr (2) GI bleeding Qualifiers: GI bleed type/associated pathology: unspecified gastrointestinal hemorrhage type Qualified Code(s): K92.2 - Gastrointestinal hemorrhage, unspecified
[2018-03-28 16:52] VITALS: BP 129/85
[2018-03-28] MEDS ORDERED: Apixaban 5 MG TABLET PO SCH (21:00)
== END 2018-03-28 17:03 | DRG 377 ==
LOC: 3ANU 15:33 → EMEROOARM 15:33 → SUATTDRO 17:43 → 3ANU 18:50 → 2NNU 03-21 16:53 → 2NENU 03-24 20:42
PROVIDERS: ADMIT Internal Medicine; ATTEND Internal Medicine

== ENCOUNTER 2018-05-31 13:48 | Inpatient (IN) ==
--- NOTE | 2018-05-31 14:31 | Emergency Department Note ---
Disposition Clinical Impression: History of GI bleed, Proctitis Congestive heart failure Qualifiers: Heart failure type: unspecified Heart failure chronicity: acute Qualified Code(s): I50.9 - Heart failure, unspecified Urinary tract infection Qualifiers: Encounter type: initial encounter Qualified Code(s): T83.510A - Disposition: Admitted As Inpatient Condition: Fair General Adult HPI - General Stated complaint: Abdominal Pain Time Seen by Provider: 05/31/18 14:04 Source: patient, EMS Limitations: no limitations Nursing Notes Reviewed: Yes Vital Signs Reviewed: Yes - History of Present Illness HPI Narrative: 88-year-old female presenting from intermediate via EMS due to shortness of breath and abdominal pain. 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 EMS states that per the intermediate she has been having shortness of breath and complaining of abdominal pain. Otherwise she has been treating for a decubitus ulcer which is healing. Pain Scale: 0 - Related Data Home Medications Medication Instructions Recorded Confirmed Calcium Carbonate [Calcium] 600 mg PO BID 07/20/15 05/31/18 Folic Acid 1 mg PO DAILY 07/20/15 05/31/18 PHENobarbital [Phenobarbital] 32.4 mg PO TID 07/20/15 05/31/18 Bisacodyl [Dulcolax] 10 mg RC DAILY 10/09/15 05/31/18 Magnesium Hydroxide [Milk of 400 mg PO DAILY PRN 10/09/15 05/31/18 Magnesia] Multivitamin [Multivitamins] 1 each PO DAILY 10/09/15 05/31/18 Acetaminophen [Non-Aspirin] 650 mg PO Q6H 03/16/18 05/31/18 Amlodipine Besylate 2.5 mg PO DAILY 03/16/18 05/31/18 Guaifenesin [Tussin] 100 mg PO Q4H PRN 03/16/18 05/31/18 Hydrocortisone/Pramoxine [Analpram 30 gm TP QID 03/16/18 05/31/18 Hc 1% Cream] Lactulose 30 ml PO DAILY 03/16/18 05/31/18 LevETIRAcetam [Keppra] 500 mg PO BID 03/16/18 05/31/18 Polyethylene Glycol 3350 [MiraLAX] 17 gm PO DAILY PRN 03/16/18 05/31/18 Sennosides/Docusate Sodium 1 tab PO BID 03/16/18 05/31/18 [Docusate Sodium-Senna Tablet] Ascorbic Acid [Vitamin C with Lucy 500 mg PO DAILY 05/31/18 05/31/18 Hips] Guaifenesin [Mucinex] 600 mg PO Q12H 05/31/18 05/31/18 Previous Rx's Medication Instructions Recorded Apixaban [Eliquis] 5 mg PO BID #60 tablet 03/28/18 Omeprazole Magnesium 20 mg PO BID #60 capsule. 03/28/18 Allergies Allergy/AdvReac Type Severity Reaction Status Date / Time hydromorphone [From Dilaudid] Allergy Unknown See Verified 03/16/18 19:14 Comments phenytoin [From Dilantin] Allergy Unknown See Verified 03/16/18 19:14 Comments tetracycline [Tetracycline] Allergy Unknown See Verified 03/16/18 19:14 Comments All systems ED: reviewed and negative except as stated. Review of Systems: As Per HPI Limitations: ROS unobtainable due to patients medical condition Past Medical History - Past Medical History Attestation: Yes The following information was validated with the patient. Medical history: Reports: CVA, DVT, dementia, hyperlipidemia, seizures, other Surgical history: Reports: non-contributory Psychiatric history: Reports: no psych history - Social History Smoking Status: Never smoker Smokeless Tobacco Status: No Alcohol use: Reports: none Drug use: Reports: none Physical Exam - General Limitations: no limitations General appearance: alert, in no apparent distress - Head Head exam: atraumatic, normocephalic - Eye Eye exam: Present: normal appearance, PERRL - ENT ENT exam: normal exam, normal oropharynx, mucous membranes moist - Neck Neck exam: Present: normal inspection, full ROM, trachea midline - Chest Chest inspection: Present: normal inspection, symmetric chest wall rise - Respiratory Respiratory exam: Present: normal lung sounds bilaterally. Absent: respiratory distress, wheezes, stridor, accessory muscle use - Cardiovascular Cardiovascular exam: Present: regular rate, normal heart sounds - Abdominal Exam Abdominal exam: Present: soft, Non-Tender, normal bowel sounds. Absent: distent ion, guarding, rebound, rigidity - Rectal Exam Zoning Assistant present during exam: Yes Rectal exam: Present: normal rectal tone, hemorrhoids. Absent: black stool - Extremities Exam Extremities exam: Present: normal inspection. Absent: pedal edema - Back Exam Back exam: Present: normal inspection - Neurological Exam Neurological exam: Present: alert. Absent: oriented X3 (which is baseline, per ) - Psychiatric Psychiatric exam: Present: normal affect, normal mood - Skin Skin exam: Present: warm, dry, intact, other (well healing decubitus ulcer overlying sacrum) Course Vital Signs Temperature 97.4 F L 05/31/18 14:12 Pulse Rate 91 05/31/18 14:12 Respiratory Rate 20 05/31/18 14:12 Blood Pressure 118/66 05/31/18 14:12 O2 Sat by Pulse Oximetry 98 05/31/18 14:12 Temperature 98.4 F 05/31/18 21:50 Pulse Rate 110 05/31/18 21:50 Respiratory Rate 16 05/31/18 21:50 Blood Pressure 122/72 05/31/18 21:50 O2 Sat by Pulse Oximetry 92 05/31/18 21:50 Oxygen Delivery Oxygen Delivery Nasal Cannula Medical Decision Making - MDM Narrative Medical decision making narrative: 80-year-old female presenting with shortness of breath and abdominal pain per intermediate report. Patient is now on baseline oxygen and in the emergency department if she is requiring 3 L of oxygen. She does have crackles in bilateral bases. Chest x-ray shows bilateral pleural effusions without evidence of overlying pneumonia, BNP >3000. Given the patient's continued tachycardia and need for supplemental oxygen did obtain d-dimer which was elevated therefore obtained a CT angio chest which was negative for pulmonary embolism. Patient does have what seems to be pain upon palpation that she is unable to admit therefore obtain CT abdomen which showed evidence of proctitis. Hemoccult performed given her drop in hemoglobin which was positive. She does have a history of GI bleed. Urinalysis shows urinary tract infection. Patient started on Rocephin and Flagyl for treatment of UTI and proctitis. Discussed case with on-call hospitalist who agrees with plan for admission. Patient's agrees with and understands course of treatment plan including plan for admission. All questions answered. - Medical Records Medical records reviewed: Yes I reviewed the patient's medical records. - Lab Data Lab results reviewed: Yes I reviewed the patient's lab results. Result diagrams: 05/31/18 14:44 05/31/18 14:44 Lab Results 05/31/18 05/31/18 05/31/18 Range/Units 14:44 14:44 14:44 WBC 4.4 (4.3-11.1) K/mcL RBC 3.26 L (3.82-4.97) M/mcL Hgb 9.6 L D (11.5-15.4) g/dL Hct 32.5 L (35.3-44.9) % MCV 99.7 (83.0-100.0) fL MCH 29.4 (28.0-33.3) pg MCHC 29.5 L (31.6-35.5) g/dL RDW 15.3 H (11.5-14.5) % Plt Count 363 (140-400) K/mcL MPV 10.6 (9.4-12.4) fL Immature Gran % 0.0 (0-4) % Seg Neutrophils % 64.8 % Lymphocytes % 18.6 % Monocytes % 14.1 % Eosinophils % 1.6 % Basophils % 0.9 % Neutrophils # 2.9 (1.6-8.9) K/mcL Lymphocytes # 0.8 (0.6-4.6) K/mcL Monocytes # 0.6 (0.0-1.3) K/mcL Eosinophils # 0.1 (0.0-0.6) K/mcL Basophils # 0.0 (0.0-0.2) K/mcL PT 13.6 H (9.4-12.1) Seconds INR 1.2 APTT 32.0 (26.0-36.0) Seconds D-Dimer (0-500) ng/mLFEU Sodium 142 (136-145) mEq/L Potassium 4.3 (3.5-5.1) mEq/L Chloride 110 H (98-107) mEq/L Carbon Dioxide 26 (23-29) mEq/L BUN 23 (8-23) mg/dL Creatinine 0.90 (0.60-1.20) mg/dL Est GFR ( Amer) > 60 (> 60) Est GFR (Non-Af Amer) 59 L (> 60) BUN/Creatinine Ratio 26 (6-26) Glucose 162 H (70-105) mg/dL Calculated Osmolality 301 H (280-300) Lactic Acid (0.5-2.2) mmol/L Calcium 8.6 (8.6-10.3) mg/dL Total Bilirubin 0.3 (0.3-1.0) mg/dL Direct Bilirubin 0.1 (0.0-0.2) mg/dL Indirect Bilirubin 0.2 (0.0-1.2) mg/dL AST 11 L (13-39) Units/L ALT 7 (7-52) Units/L Alkaline Phosphatase 61 (34-104) Units/L Troponin I 0.09 H* (< 0.04) ng/mL B-Natriuretic Peptide (Less than 100) pg/mL Serum Total Protein 5.7 L (6.4-8.9) g/dL Albumin 3.1 L (3.5-5.7) g/dL Globulin 2.6 (2.4-3.5) g/dL Albumin/Globulin Ratio 1.2 (1.1-2.2) Amylase 25 L (29-103) Units/L Lipase 17 (11-82) Units/L Urine Color (Yellow) Urine Clarity (Clear) Urine pH (5.0-8.0) pH Units Ur Specific [place] (1.010-1.025) Urine Protein (Neg-Trace) mg/dL Urine Glucose (UA) (Normal) mg/dL Urine Ketones (Negative) mg/dL Urine Blood (Negative) Urine Nitrite (Negative) Urine Bilirubin (Negative) Urine Urobilinogen (Normal) mg/dL Ur Leukocyte Esterase (Negative) Urine Microscopic RBC (0-3) per hpf Urine Microscopic WBC (0-3) per hpf Ur Squamous Epith Cells (None-Few) per lpf Urine Bacteria (None-Few) per hpf Hyaline Casts (None-Few) per lpf Ur Culture Indicated? (NO) Stool Occult Bld Scrn (Negative) 05/31/18 05/31/18 05/31/18 Range/Units 14:44 14:44 15:30 WBC (4.3-11.1) K/mcL RBC (3.82-4.97) M/mcL Hgb (11.5-15.4) g/dL Hct (35.3-44.9) % MCV (83.0-100.0) fL MCH (28.0-33.3) pg MCHC (31.6-35.5) g/dL RDW (11.5-14.5) % Plt Count (140-400) K/mcL MPV (9.4-12.4) fL Immature Gran % (0-4) % Seg Neutrophils % % Lymphocytes % % Monocytes % % Eosinophils % % Basophils % % Neutrophils # (1.6-8.9) K/mcL Lymphocytes # (0.6-4.6) K/mcL Monocytes # (0.0-1.3) K/mcL Eosinophils # (0.0-0.6) K/mcL Basophils # (0.0-0.2) K/mcL PT (9.4-12.1) Seconds INR APTT (26.0-36.0) Seconds D-Dimer (0-500) ng/mLFEU Sodium (136-145) mEq/L Potassium (3.5-5.1) mEq/L Chloride (98-107) mEq/L Carbon Dioxide (23-29) mEq/L BUN (8-23) mg/dL Creatinine (0.60-1.20) mg/dL Est GFR ( Amer) (> 60) Est GFR (Non-Af Amer) (> 60) BUN/Creatinine Ratio (6-26) Glucose (70-105) mg/dL Calculated Osmolality (280-300) Lactic Acid 1.9 (0.5-2.2) mmol/L Calcium (8.6-10.3) mg/dL Total Bilirubin (0.3-1.0) mg/dL Direct Bilirubin (0.0-0.2) mg/dL Indirect Bilirubin (0.0-1.2) mg/dL AST (13-39) Units/L ALT (7-52) Units/L Alkaline Phosphatase (34-104) Units/L Troponin I (< 0.04) ng/mL B-Natriuretic Peptide 3972 H (Less than 100) pg/mL Serum Total Protein (6.4-8.9) g/dL Albumin (3.5-5.7) g/dL Globulin (2.4-3.5) g/dL Albumin/Globulin Ratio (1.1-2.2) Amylase (29-103) Units/L Lipase (11-82) Units/L Urine Color Yellow (Yellow) Urine Clarity Cloudy A (Clear) Urine pH 5.0 (5.0-8.0) pH Units Ur Specific [place] 1.026 H (1.010-1.025) Urine Protein Negative (Neg-Trace) mg/dL Urine Glucose (UA) Normal (Normal) mg/dL Urine Ketones Negative (Negative) mg/dL Urine Blood Large H (Negative) Urine Nitrite Positive A (Negative) Urine Bilirubin Negative (Negative) Urine Urobilinogen Normal (Normal) mg/dL Ur Leukocyte Esterase Moderate H (Negative) Urine Microscopic RBC 15-30 H (0-3) per hpf Urine Microscopic WBC 50-100 H (0-3) per hpf Ur Squamous Epith Cells Few (None-Few) per lpf Urine Bacteria Many H (None-Few) per hpf Hyaline Casts Moderate H (None-Few) per lpf Ur Culture Indicated? YES A (NO) Stool Occult Bld Scrn (Negative) 05/31/18 05/31/18 Range/Units 16:07 17:55 WBC (4.3-11.1) K/mcL RBC (3.82-4.97) M/mcL Hgb (11.5-15.4) g/dL Hct (35.3-44.9) % MCV (83.0-100.0) fL MCH (28.0-33.3) pg MCHC (31.6-35.5) g/dL RDW (11.5-14.5) % Plt Count (140-400) K/mcL MPV (9.4-12.4) fL Immature Gran % (0-4) % Seg Neutrophils % % Lymphocytes % % Monocytes % % Eosinophils % % Basophils % % Neutrophils # (1.6-8.9) K/mcL Lymphocytes # (0.6-4.6) K/mcL Monocytes # (0.0-1.3) K/mcL Eosinophils # (0.0-0.6) K/mcL Basophils # (0.0-0.2) K/mcL PT (9.4-12.1) Seconds INR APTT (26.0-36.0) Seconds D-Dimer 1245 H (0-500) ng/mLFEU Sodium (136-145) mEq/L Potassium (3.5-5.1) mEq/L Chloride (98-107) mEq/L Carbon Dioxide (23-29) mEq/L BUN (8-23) mg/dL Creatinine (0.60-1.20) mg/dL Est GFR ( Amer) (> 60) Est GFR (Non-Af Amer) (> 60) BUN/Creatinine Ratio (6-26) Glucose (70-105) mg/dL Calculated Osmolality (280-300) Lactic Acid (0.5-2.2) mmol/L Calcium (8.6-10.3) mg/dL Total Bilirubin (0.3-1.0) mg/dL Direct Bilirubin (0.0-0.2) mg/dL Indirect Bilirubin (0.0-1.2) mg/dL AST (13-39) Units/L ALT (7-52) Units/L Alkaline Phosphatase (34-104) Units/L Troponin I (< 0.04) ng/mL B-Natriuretic Peptide (Less than 100) pg/mL Serum Total Protein (6.4-8.9) g/dL Albumin (3.5-5.7) g/dL Globulin (2.4-3.5) g/dL Albumin/Globulin Ratio (1.1-2.2) Amylase (29-103) Units/L Lipase (11-82) Units/L Urine Color (Yellow) Urine Clarity (Clear) Urine pH (5.0-8.0) pH Units Ur Specific [place] (1.010-1.025) Urine Protein (Neg-Trace) mg/dL Urine Glucose (UA) (Normal) mg/dL Urine Ketones (Negative) mg/dL Urine Blood (Negative) Urine Nitrite (Negative) Urine Bilirubin (Negative) Urine Urobilinogen (Normal) mg/dL Ur Leukocyte Esterase (Negative) Urine Microscopic RBC (0-3) per hpf Urine Microscopic WBC (0-3) per hpf Ur Squamous Epith Cells (None-Few) per lpf Urine Bacteria (None-Few) per hpf Hyaline Casts (None-Few) per lpf Ur Culture Indicated? (NO) Stool Occult Bld Scrn Positive A (Negative) - Radiology Data Radiology results reviewed: Yes I reviewed the patient's radiology results. Chest X-Ray 05/31/18 14:10 IMPRESSION: Moderate CHF with cardiomegaly. Bilateral layering pleural effusions. D/ / Primo Corea MD / Primo Corea MD Interpreting Provider: Primo Corea MD Abdomen/Pelvis CT 05/31/18 16:02 IMPRESSION: Large sigmoid rectal stool burden with circumferential wall thickening and surrounding fat stranding, together suggesting stercoral proctitis. No evidence of perforation. Colonic diverticulosis without evidence of diverticulitis. Unchanged indeterminate left renal lesion. As mentioned previously, this could be further evaluated with renal ultrasound versus dedicated renal mass protocol CT or MRI depending on patient's life expectancy and comorbidities. Large right and moderate volume left pleural effusions. D/ : / 05/31/2018 17:39:34 Fausto Kenney / kassandra Interpreting Provider: Fausto Kenney Chest CTA 05/31/18 18:52 IMPRESSION: No evidence of pulmonary embolus although distal segmental and subsegmental pulmonary arteries are poorly evaluated. Moderate to large right and small left pleural effusions. Partial consolidation in the lower lobes which may be related to atelectasis. Interlobular septal wall thickening and scattered ground-glass attenuation within the upper lobes likely related to edema. D/ / Macie Harris MD / Macie Harris MD Interpreting Provider: Macie Harris MD - EKG Data EKG #1 EKG attestation: Yes I reviewed and interpreted this EKG. EKG results narrative: Normal sinus rhythm rate of 94. Left axis deviation. NH 157, QRS 107, QT 363, QTC 454. T-wave inversions in V4 through V6. No ST elevation. No prior for comparison. Attestation Statement - Attestation Attestation: I, Rom Todd, examined this patient and my medical decision-making was reviewed with the FRUIT BUYING GRADER/PA/Advanced Practice Nurse/Resident Physician. I agree with the documented findings, disposition and treatment plan as described except to the extent set forth below. 88-year-old female brought to the emergency department for evaluation of abdominal pain and difficulty breathing. Patient had a history of a CVA and is unable to give information regarding her case and presentation. CT of her abdomen showed a large burden of stool with stranding around the sigmoid colon. Patient has a urinary tract infection on urinalysis. She is anemic and has guaiac positive stool. She has bilateral pleural effusions and is currently requiring oxygen emergency Department does not use oxygen at home. Patient has elevated troponin. CTA of the chest did not show evidence of PE. Patient will be started on antibiotics for UTI and admitted to the hospitalist for further care and evaluation.
[2018-05-31 15:01] LABS: Basophils % 0.9 %; Eosinophils # 0.1 K/mcL (0.0-0.6); Eosinophils % 1.6 %; Hematocrit 32.5 % (35.3-44.9); Hemoglobin 9.6 g/dL (11.5-15.4); Lymphocytes # 0.8 K/mcL (0.6-4.6); Lymphocytes % 18.6 %; Mean Corpuscular HGB Conc 29.5 g/dL (31.6-35.5); Mean Corpuscular Hemoglobin 29.4 pg (28.0-33.3); Mean Corpuscular Volume 99.7 fL (83.0-100.0); Mean Platelet Volume 10.6 fL (9.4-12.4); Monocytes # 0.6 K/mcL (0.0-1.3); Monocytes % 14.1 %; Neutrophils # 2.9 K/mcL (1.6-8.9); Platelet Count 363 K/mcL (140-400); Red Blood Count 3.26 M/mcL (3.82-4.97); Red Cell Distribution Width 15.3 % (11.5-14.5); Segmented Neutrophils % 64.8 %
[2018-05-31 15:10] LABS: INR 1.2; Prothrombin Time 13.6 Seconds (9.4-12.1)
[2018-05-31 15:24] LABS: Alanine Aminotransferase 7 Units/L (7-52); Albumin 3.1 g/dL (3.5-5.7); Albumin/Globulin Ratio 1.2 (1.1-2.2); Alkaline Phosphatase 61 Units/L (34-104); Amylase 25 Units/L (29-103); Aspartate Amino Transferase 11 Units/L (13-39); BUN/Creatinine Ratio 26 (6-26); Bilirubin,Direct 0.1 mg/dL (0.0-0.2); Bilirubin,Indirect 0.2 mg/dL (0.0-1.2); Bilirubin,Total 0.3 mg/dL (0.3-1.0); Blood Urea Nitrogen 23 mg/dL (8-23); Calcium 8.6 mg/dL (8.6-10.3); Carbon Dioxide 26 mEq/L (23-29); Chloride 110 mEq/L (98-107); Globulin 2.6 g/dL (2.4-3.5); Glucose 162 mg/dL (70-105); Lipase 17 Units/L (11-82); Osmolality,Calculated 301 (280-300); Potassium 4.3 mEq/L (3.5-5.1); Sodium 142 mEq/L (136-145); Total Protein 5.7 g/dL (6.4-8.9); eGFR For Non-African Americans 59 (> 60)
[2018-05-31 15:28] LABS: Troponin I 0.09 ng/mL (< 0.04)
[2018-05-31 15:53] LABS: Bilirubin,Urine Negative (Negative); Blood,Urine Large (Negative); Clarity,Urine Cloudy (Clear); Color,Urine Yellow (Yellow); Glucose,Urine (UA) Normal (Normal); Ketones,Urine Negative (Negative); Leukocyte Esterase,Urine Moderate (Negative); Nitrite,Urine Positive (Negative); Protein,Urine Negative (Neg-Trace); Specific Gravity,Urine 1.026 (1.010-1.025); Urobilinogen,Urine Normal (Normal)
[2018-05-31 15:56] LABS: Bacteria,Urine Many per hpf (None-Few); Hyaline Casts,Urine Moderate per lpf (None-Few); RBC,Urine 15-30 per hpf (0-3); Squamous Epithelial Cell,Urine Few per lpf (None-Few); WBC,Urine 50-100 per hpf (0-3)
[2018-05-31] MEDS ORDERED: Isovue-370 500 ML INFUS..BTL IV ONE ×2 (16:02→18:52)
[2018-05-31] MEDS ORDERED: cefTRIAXone 1,000 MG in Water for inj. (sterile) 20 ML 10 ML IVP ONE (17:27)
[2018-05-31] MEDS ORDERED: Naloxone 0.4 MG/ML INJ IVP PRN (18:01)
[2018-05-31] MEDS ORDERED: MOM Conc 10 ML UD.LIQ PO PRN (18:03)
[2018-05-31] MEDS ORDERED: Milk and Molasses Enema 200 ML RC ONE (18:05)
--- NOTE | 2018-05-31 18:36 | Internal Med History&Physical ---
Date of Encounter: 05/31/18 Time of Encounter: 18:30 Internal Medicine - H&P: HPI Chief complaint: Shortness of breath and abdominal pain noted at group home History of present illness: Ms. 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 History was provided by at bedside as patient has dementia. He reports she has been progressively more short of breath for about 3 days and has been breathing with accessory muscles. She also been requiring more oxygen at the group home. senior care staff sent her over to the ER because her symptoms were getting worse. He also reports worsening lethargy. He reports no other acute symptoms In the ER, chest xray was done showing bilateral pleural effusions and urinalysis showed multiple WBCS. She was started on ceftriaxone and is being admitted for further management Past Med Surg Social Fam HX - Past Medical History Medical history: CVA, DVT, dementia, hyperlipidemia, seizures, other Additional medical history: hemiplg flw cerebral infarct, aphasia, benign neoplasm of meninges Psychiatric history: no psych history - Past Surgical History Surgical History: non-contributory Additional surgical history: brain tumors removed; non-malignant - Social History Smoking Status: Never smoker Smokeless Tobacco Status: No Alcohol use: none Drug use: none Internal Medicine - H&P: Meds Calcium Carbonate [Calcium] 600 mg PO BID 07/20/15 [History] Folic Acid 1 mg PO DAILY 07/20/15 [History] PHENobarbital [Phenobarbital] 32.4 mg PO TID 07/20/15 [History] Bisacodyl [Dulcolax] 10 mg RC DAILY 10/09/15 [History] Magnesium Hydroxide [Milk of Magnesia] 400 mg PO DAILY PRN 10/09/15 [History] Multivitamin [Multivitamins] 1 each PO DAILY 10/09/15 [History] Acetaminophen [Non-Aspirin] 650 mg PO Q6H 03/16/18 [History] Amlodipine Besylate 2.5 mg PO DAILY 03/16/18 [History] Guaifenesin [Tussin] 100 mg PO Q4H PRN 03/16/18 [History] Hydrocortisone/Pramoxine [Analpram Hc 1% Cream] 30 gm TP QID 03/16/18 [History] Lactulose 30 ml PO DAILY 03/16/18 [History] LevETIRAcetam [Keppra] 500 mg PO BID 03/16/18 [History] Polyethylene Glycol 3350 [MiraLAX] 17 gm PO DAILY PRN 03/16/18 [History] Sennosides/Docusate Sodium [Docusate Sodium-Senna Tablet] 1 tab PO BID 03/16/18 [History] Apixaban [Eliquis] 5 mg PO BID #60 tablet 03/28/18 [Rx] Omeprazole Magnesium 20 mg PO BID #60 capsule. 03/28/18 [Rx] Ascorbic Acid [Vitamin C with Lucy Hips] 500 mg PO DAILY 05/31/18 [History] Guaifenesin [Mucinex] 600 mg PO Q12H 05/31/18 [History] Allergy/AdvReac Type Severity Reaction Status Date / Time hydromorphone [From Dilaudid] Allergy Unknown See Verified 03/16/18 19:14 Comments phenytoin [From Dilantin] Allergy Unknown See Verified 03/16/18 19:14 Comments tetracycline [Tetracycline] Allergy Unknown See Verified 03/16/18 19:14 Comments ROS unobtainable: due to mental status All Systems PM: A 10-system review of systems was performed and is negative for pertinent findings except as documented above in the HPI. - Constitutional Vitals: Temp Pulse Resp BP Pulse Ox 97.4 F L 89 22 116/75 100 05/31/18 14:12 05/31/18 18:29 05/31/18 18:29 05/31/18 18:29 05/31/18 18:29 General appearance: Present: A&O X 1, pleasant Exam: NAD - Head Head exam: Present: atraumatic, normocephalic - Eye Eye exam: Present: PERRL, conjuntiva pink, sclera anicteric Pupils: Present: PERRL - Neck Neck exam general surgery: Present: supple, trachea midline. Absent: lymphadenopathy - Respiratory Respiratory exam: Present: CTAB. Absent: accessory muscle use, rales, rhonchi, wheezes - Cardiovascular Cardiovascular exam: Present: RRR, +S1, +S2. Absent: diastolic murmur, gallop, rubs, systolic murmur Additional comments: breath sounds, bilateral crackles - GI/Abdominal GI/Abdominal exam: Present: normal bowel sounds, soft, no peritoneal signs. Absent: distended, tenderness - Extremities Exam Extremities exam: Present: warm, radial pulses palpable and symmetrical. Absent: calf tenderness, cyanotic, pedal edema - Neurological Exam Neurological exam: Present: CN II-XII intact, oriented X3, no focal deficits. Absent: pronater drift, facial droop, speech deficit - Skin Skin exam: Present: dry, intact Internal Med - H&P Results - Labs CBC & Chem 7: 05/31/18 14:44 05/31/18 14:44 Labs: Short CBC 05/31/18 Range/Units 14:44 WBC 4.4 (4.3-11.1) K/mcL Hgb 9.6 L D (11.5-15.4) g/dL Hct 32.5 L (35.3-44.9) % Plt Count 363 (140-400) K/mcL Neutrophils # 2.9 (1.6-8.9) K/mcL BMP 05/31/18 14:44 Sodium 142 Potassium 4.3 Chloride 110 H Carbon Dioxide 26 BUN 23 Creatinine 0.90 Glucose 162 H Calcium 8.6 Cardiac Enzymes 05/31/18 Range/Units 14:44 Troponin I 0.09 H* (< 0.04) ng/mL Liver Function 05/31/18 Range/Units 14:44 Total Bilirubin 0.3 (0.3-1.0) mg/dL Direct Bilirubin 0.1 (0.0-0.2) mg/dL AST 11 L (13-39) Units/L ALT 7 (7-52) Units/L Alkaline Phosphatase 61 (34-104) Units/L Albumin 3.1 L (3.5-5.7) g/dL Urine 05/31/18 Range/Units 15:30 Urine Color Yellow (Yellow) Urine Clarity Cloudy A (Clear) Urine pH 5.0 (5.0-8.0) pH Units Ur Specific [place] 1.026 H (1.010-1.025) Urine Protein Negative (Neg-Trace) mg/dL Urine Glucose (UA) Normal (Normal) mg/dL - Impressions ITS Impressions Chest X-Ray 05/31/18 14:10 IMPRESSION: Moderate CHF with cardiomegaly. Bilateral layering pleural effusions. D/ / Primo Corea MD / Primo Croea MD Interpreting Provider: Primo Corea MD Abdomen/Pelvis CT 05/31/18 16:02 IMPRESSION: Large sigmoid rectal stool burden with circumferential wall thickening and surrounding fat stranding, together suggesting stercoral proctitis. No evidence of perforation. Colonic diverticulosis without evidence of diverticulitis. Unchanged indeterminate left renal lesion. As mentioned previously, this could be further evaluated with renal ultrasound versus dedicated renal mass protocol CT or MRI depending on patient's life expectancy and comorbidities. Large right and moderate volume left pleural effusions. D/ : / 05/31/2018 17:39:34 Fausto Kenney / kassandra Interpreting Provider: Fausto Kenney - Assessment and plan (1) Acute respiratory failure with hypoxia Current Visit: Yes Status: Acute Assessment and plan: Pt comes in with shortness of breath and bilateral crackles with pleural effusions likely secondary to acute CHF. Currently requiring 3L oxygen to keep sats above 93% No Echo to determine EF. Will obtain 2D echo. Start on lasix IV BID. Monitor ins and outs (2) Acute CHF Current Visit: Yes Status: Acute Assessment and plan: See#1.Continue diuresis. Obtain 2D echo Will consult IR for thoracentesis due to large size of pleural effusions Qualifiers: Heart failure type: unspecified Qualified Code(s): I50.9 - Heart failure, unspecified (3) Urinary tract infection Current Visit: Yes Status: Acute Assessment and plan: Has multiple WBCs in urine and reports abdominal pain Start on ceftriaxone. 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 Will administer enema (7) Constipation Current Visit: Yes Status: Acute Assessment and plan: Enema as needed Qualifiers: Qualified Code(s): K59.00 - Constipation, unspecified (8) Seizures Current Visit: Yes Status: Acute Assessment and plan: Continue home anti seizure meds (9) DVT prophylaxis Current Visit: Yes Status: Acute Assessment and plan: SCDsYasmine Fernández on hold - Time Spent With Patient Total time spent is greater than 50% in coordination of care (as documented) at patient's floor/unit and/or counseling patient:
[2018-05-31] MEDS ORDERED: MetroNIDAZOLE 500 MG/100 ML 500 MG/100 ML BAG IVPB STA (18:51)
[2018-05-31] MEDS: Sennosides/Docusate Sodium TABLET PO SCH (22:18)
[2018-05-31] MEDS: PHENobarbital 32.4 MG TABLET PO SCH (22:18)
[2018-05-31] MEDS: levETIRAcetam 250 MG TABLET PO SCH (22:18)
[2018-06-01 04:44] LABS: Basophils # 0.1 K/mcL (0.0-0.2); Basophils % 0.7 %; Eosinophils # 0.1 K/mcL (0.0-0.6); Eosinophils % 0.9 %; Hematocrit 34.5 % (35.3-44.9); Hemoglobin 10.6 g/dL (11.5-15.4); Immature Granulocytes % 0.3 % (0-4); Lymphocytes # 0.7 K/mcL (0.6-4.6); Lymphocytes % 7.9 %; Mean Corpuscular HGB Conc 30.7 g/dL (31.6-35.5); Mean Corpuscular Hemoglobin 29.9 pg (28.0-33.3); Mean Corpuscular Volume 97.2 fL (83.0-100.0); Mean Platelet Volume 10.7 fL (9.4-12.4); Monocytes # 0.7 K/mcL (0.0-1.3); Monocytes % 7.4 %; Platelet Count 401 K/mcL (140-400); Red Blood Count 3.55 M/mcL (3.82-4.97); Red Cell Distribution Width 15.2 % (11.5-14.5); Segmented Neutrophils % 82.8 %
[2018-06-01 04:45] LABS: Neutrophils # 7.5 K/mcL (1.6-8.9)
[2018-06-01 05:02] LABS: BUN/Creatinine Ratio 30 (6-26); Blood Urea Nitrogen 21 mg/dL (8-23); Calcium 8.9 mg/dL (8.6-10.3); Carbon Dioxide 24 mEq/L (23-29); Chloride 109 mEq/L (98-107); Glucose 114 mg/dL (70-105); Lactate Dehydrogenase 191 Units/L (140-271); Osmolality,Calculated 296 (280-300); Phosphorous 3.3 mg/dL (2.7-4.5); Potassium 4.5 mEq/L (3.5-5.1); Sodium 141 mEq/L (136-145); Total Protein 6.2 g/dL (6.4-8.9); eGFR For Non-African Americans > 60 (> 60)
--- NOTE | 2018-06-01 08:14 | Internal Med Progress Note ---
Hospitalist Progress Note - Encounter Date of Encounter: 06/01/18 Time of Encounter: 08:00 - Subjective Interval History: 88 year old female with pmh brain malignancies s/p 3 brain surgeries with residual right sided paralysis, senior living [facility]f resident, CVA, DVT, dementia, hyperlipidemia presenting today with worsening shortness of breath. History was provided by at bedside as patient has dementia. He reports she has been progressively more short of breath for about 3 days and has been breathing with accessory muscles. She also been requiring more oxygen at the alf. residential staff sent her over to the ER because her symptoms were getting worse. He also reports worsening lethargy. He reports no other acute symptoms - Exam Vitals: Temp Pulse Resp BP Pulse Ox 98.4 F 104 16 101/66 90 06/01/18 05:10 06/01/18 05:10 06/01/18 05:10 06/01/18 05:10 06/01/18 05:10 Exam: Gen - Awake, alert, oriented x 3, no acute distress HEENT - NCAT, PERRLA, EOMI, hearing grossly intact, oropharynx benign CV - RRR, normal S1 and S2, no M/R/G, no BLE edema Resp - decreased breath sounds GI - Soft, NT/ND, no masses, normal bowel sounds, Skin - Warm, dry, no rashes/lesions/ulcers Psych - Normal mood and affect, no depression or anxiety - Assessment and Plan (1) Acute respiratory failure with hypoxia Current Visit: Yes Status: Acute Assessment and Plan: Pt comes in with shortness of breath and bilateral crackles with pleural effusions likely secondary to acute CHF and community acquired pneumonia. Currently requiring 3L oxygen to keep sats above 93% No Echo to determine EF. Will obtain 2D echo. Start on lasix IV BID. Monitor ins and outs (2) Acute CHF Current Visit: Yes Status: Acute Assessment and Plan: See#1.Continue diuresis. Obtain 2D echo Will consult IR for thoracentesis due to large size of pleural effusions (3) Community acquired bacterial pneumonia Current Visit: Yes Status: Acute Assessment and Plan: CTA chest showed bilateral lower lobe consolidations. Start on ceftriaxone and azithromycin (4) Urinary tract infection Current Visit: Yes Status: Acute Assessment and Plan: Has multiple WBCs in urine and reports abdominal pain Start on ceftriaxone. 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 Will administer enema (8) Constipation Current Visit: Yes Status: Acute Assessment and Plan: Enema as needed (9) Seizures Current Visit: Yes Status: Acute Assessment and Plan: Continue home anti seizure meds (10) DVT prophylaxis Current Visit: Yes Status: Acute Assessment and Plan: SCDs. Eliquis on hold - Time Spent with Patient Total time spent is greater than 50% in coordination of care (as documented) at patient's floor/unit and/or counseling patient: Internal Medicine: Result - Labs CBC & Chem 7: 06/01/18 03:50 06/01/18 03:50 Labs: Short CBC 05/31/18 06/01/18 Range/Units 14:44 03:50 WBC 4.4 9.0 D (4.3-11.1) K/mcL Hgb 9.6 L D 10.6 L (11.5-15.4) g/dL Hct 32.5 L 34.5 L (35.3-44.9) % Plt Count 363 401 H (140-400) K/mcL Neutrophils # 2.9 7.5 (1.6-8.9) K/mcL BMP 05/31/18 06/01/18 14:44 03:50 Sodium 142 141 Potassium 4.3 4.5 Chloride 110 H 109 H Carbon Dioxide 26 24 BUN 23 21 Creatinine 0.90 0.71 Glucose 162 H 114 H Calcium 8.6 8.9 Cardiac Enzymes 05/31/18 05/31/18 06/01/18 Range/Units 14:44 21:52 03:50 Troponin I 0.09 H* 0.08 H* 0.05 H* (< 0.04) ng/mL Liver Function 05/31/18 Range/Units 14:44 Total Bilirubin 0.3 (0.3-1.0) mg/dL Direct Bilirubin 0.1 (0.0-0.2) mg/dL AST 11 L (13-39) Units/L ALT 7 (7-52) Units/L Alkaline Phosphatase 61 (34-104) Units/L Albumin 3.1 L (3.5-5.7) g/dL Urine 05/31/18 Range/Units 15:30 Urine Color Yellow (Yellow) Urine Clarity Cloudy A (Clear) Urine pH 5.0 (5.0-8.0) pH Units Ur Specific [place] 1.026 H (1.010-1.025) Urine Protein Negative (Neg-Trace) mg/dL Urine Glucose (UA) Normal (Normal) mg/dL - ABG Interpretation ABG results: PT/INR, D-dimer PT 13.6 Seconds (9.4-12.1) H 05/31/18 14:44 D-Dimer 1245 ng/mLFEU (0-500) H 05/31/18 17:55 - Impressions Impressions Chest X-Ray 05/31/18 14:10 IMPRESSION: Moderate CHF with cardiomegaly. Bilateral layering pleural effusions. D/ / Primo Corea MD / Primo Corea MD Interpreting Provider: Primo Corea MD Abdomen/Pelvis CT 05/31/18 16:02 IMPRESSION: Large sigmoid rectal stool burden with circumferential wall thickening and surrounding fat stranding, together suggesting stercoral proctitis. No evidence of perforation. Colonic diverticulosis without evidence of diverticulitis. Unchanged indeterminate left renal lesion. As mentioned previously, this could be further evaluated with renal ultrasound versus dedicated renal mass protocol CT or MRI depending on patient's life expectancy and comorbidities. Large right and moderate volume left pleural effusions. D/ : / 05/31/2018 17:39:34 Fausto Kenney / kassandra Interpreting Provider: Fausto Kenney Chest CTA 05/31/18 18:52 IMPRESSION: No evidence of pulmonary embolus although distal segmental and subsegmental pulmonary arteries are poorly evaluated. Moderate to large right and small left pleural effusions. Partial consolidation in the lower lobes which may be related to atelectasis. Interlobular septal wall thickening and scattered ground-glass attenuation within the upper lobes likely related to edema. D/ / Macie Harris MD / Macie Harris MD Interpreting Provider: Macie Harris MD Consult Discharge Plan - Plan Referrals: NONE,PCP [Primary Care Provider] - ____ (2) Acute CHF Qualifiers: Heart failure type: unspecified Qualified Code(s): I50.9 - Heart failure, unspecified (4) Urinary tract infection Qualifiers: Encounter type: initial encounter Qualified Code(s): T83.510A - Infection and inflammatory reaction due to cystostomy catheter, initial encounter; N39.0 - Urinary tract infection, site not specified (8) Constipation Qualifiers: Qualified Code(s): K59.00 - Constipation, unspecified
[2018-06-01] MEDS: levETIRAcetam 250 MG TABLET PO SCH ×2 (09:02→20:07)
[2018-06-01] MEDS: Sennosides/Docusate Sodium TABLET PO SCH ×2 (09:02→20:07)
[2018-06-01] MEDS: amLODIPine 5 MG TABLET PO SCH (09:03)
[2018-06-01] MEDS: Bisacodyl 10 MG RECTAL SUPPOSITORY RC SCH (09:03)
[2018-06-01] MEDS: PHENobarbital 32.4 MG TABLET PO SCH ×3 (09:03→20:07)
[2018-06-01] MEDS: Furosemide 40 MG/4 ML VIAL IVP SCH ×2 (09:04→17:28)
[2018-06-01] MEDS: cefTRIAXone 1,000 MG in Water for inj. (sterile) 20 ML 10 ML IVP SCH (09:04)
--- NOTE | 2018-06-01 09:54 | Electrocardiograph Report ---
[place] [id number] Test Date: 2018-05-31 Pat Name: Yulisa Almeida Department: EXAM19 Room: 2A42 Gender: F Cloth Booker: : 1930 Requested By: Rom Todd Order Number: [id number] Reading MD: Ren Alba Measurements Intervals [place] Rate: 94 P: 64 AR: 157 QRS: -6 QRSD: 107 T: 142 QT: 363 QTc: 454 Interpretive Statements Sinus rhythm PVCs Inferior infarct, age undetermined Anterior infarct, age undetermined Electronically Signed On 06-01-2018 9:52:26 EST by Ren Alba
[2018-06-01] MEDS: Azithromycin 500 MG in D5% in Water 250 ML IVPB SCH (10:45)
--- NOTE | 2018-06-01 16:04 | IR Procedure Note ---
Date of procedure: 06/01/18 Consent Obtained: Verbal consent, Written consent Timeout: Correct patient and procedure verified, Correct site verified, Time out performed, Skin prep completed Local anesthetic: Lidocaine 1% Indications: pleural effusion Procedure Performed: right thoracentesis Was there an virtual office assistant present: Juany Rag Collector: Portillo Wang Site/Technique: right chest Results/Findings: 1 L straw color fluid Estimated blood loss (cc): 0 Complications: None; Tolerated procedure well Post Procedure Treatment Plan: xray Specimen: NA
[2018-06-02 07:25] LABS: Basophils # 0.1 K/mcL (0.0-0.2); Basophils % 0.9 %; Eosinophils # 0.3 K/mcL (0.0-0.6); Eosinophils % 4.5 %; Hematocrit 29.4 % (35.3-44.9); Hemoglobin 9.2 g/dL (11.5-15.4); Immature Granulocytes % 0.3 % (0-4); Lymphocytes # 1.2 K/mcL (0.6-4.6); Lymphocytes % 21.2 %; Mean Corpuscular HGB Conc 31.3 g/dL (31.6-35.5); Mean Corpuscular Hemoglobin 30.1 pg (28.0-33.3); Mean Corpuscular Volume 96.1 fL (83.0-100.0); Mean Platelet Volume 10.7 fL (9.4-12.4); Monocytes # 0.8 K/mcL (0.0-1.3); Monocytes % 14.1 %; Neutrophils # 3.4 K/mcL (1.6-8.9); Platelet Count 344 K/mcL (140-400); Red Blood Count 3.06 M/mcL (3.82-4.97); Red Cell Distribution Width 15.2 % (11.5-14.5)
[2018-06-02 07:41] LABS: BUN/Creatinine Ratio 29 (6-26); Blood Urea Nitrogen 22 mg/dL (8-23); Calcium 8.5 mg/dL (8.6-10.3); Carbon Dioxide 27 mEq/L (23-29); Chloride 109 mEq/L (98-107); Glucose 105 mg/dL (70-105); Osmolality,Calculated 298 (280-300); Sodium 142 mEq/L (136-145); eGFR For Non-African Americans > 60 (> 60)
[2018-06-02] MEDS: cefTRIAXone 1,000 MG in Water for inj. (sterile) 20 ML 10 ML IVP SCH (07:48)
[2018-06-02] MEDS: PHENobarbital 32.4 MG TABLET PO SCH ×3 (07:49→22:17)
[2018-06-02] MEDS: Furosemide 40 MG/4 ML VIAL IVP SCH ×2 (07:49→16:05)
[2018-06-02] MEDS: levETIRAcetam 250 MG TABLET PO SCH ×2 (07:49→22:17)
[2018-06-02] MEDS: amLODIPine 5 MG TABLET PO SCH (07:49)
[2018-06-02] MEDS: Azithromycin 500 MG in D5% in Water 250 ML IVPB SCH (07:50)
[2018-06-02] MEDS: Sennosides/Docusate Sodium TABLET PO SCH ×2 (07:50→22:17)
[2018-06-02] MEDS: Bisacodyl 10 MG RECTAL SUPPOSITORY RC SCH (07:50)
--- NOTE | 2018-06-02 08:23 | Internal Med Progress Note ---
Hospitalist Progress Note - Encounter Date of Encounter: 06/02/18 Time of Encounter: 10:00 - Subjective Interval History: 88 year old female with pmh brain malignancies s/p 3 brain surgeries with residual right sided paralysis, [facility] resident, CVA, DVT, dementia, hyperlipidemia presenting today with worsening shortness of breath. History was provided by at bedside as patient has dementia. He reports she has been progressively more short of breath for about 3 days and has been breathing with accessory muscles. She also been requiring more oxygen at the [facility]. longterm staff sent her over to the ER because her symptoms were getting worse. He also reports worsening lethargy. He reports no other acute symptoms - Exam Vitals: Temp Pulse Resp BP Pulse Ox 97.8 F 99 16 93/61 94 06/02/18 05:20 06/02/18 05:20 06/02/18 05:20 06/02/18 05:20 06/02/18 05:20 Exam: Gen - Awake, alert, oriented x 3, no acute distress HEENT - NCAT, PERRLA, EOMI, hearing grossly intact, oropharynx benign CV - RRR, normal S1 and S2, no M/R/G, no BLE edema Resp - decreased breath sounds GI - Soft, NT/ND, no masses, normal bowel sounds, Skin - Warm, dry, no rashes/lesions/ulcers Psych - Normal mood and affect, no depression or anxiety - Assessment and Plan (1) Acute respiratory failure with hypoxia Current Visit: Yes Status: Acute Assessment and Plan: Pt comes in with shortness of breath and bilateral crackles with pleural effusions likely secondary to acute CHF and community acquired pneumonia. Currently requiring 3L oxygen to keep sats above 93% Echo showed Ef 30-35%. Start on lasix IV BID. Monitor ins and outs (2) Acute CHF Current Visit: Yes Status: Acute Assessment and Plan: Pt has new acute systolic CHF with EF 30 -35%. Improving on diuresis with lasix Had IR drainage of pleural effusion in last 24hrs and has improved symptomatically. Will consult cardiology for possible ischemic cardiomyopathy workup, however due to age of patient , may not tolerate any aggresive intervention (3) Community acquired bacterial pneumonia Current Visit: Yes Status: Acute Assessment and Plan: CTA chest showed bilateral lower lobe consolidations. Start on ceftriaxone and azithromycin (4) Urinary tract infection Current Visit: Yes Status: Acute Assessment and Plan: Has multiple WBCs in urine and reports abdominal pain Start on ceftriaxone. 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 Will administer enema (8) Constipation Current Visit: Yes Status: Acute Assessment and Plan: Enema as needed (9) Seizures Current Visit: Yes Status: Acute Assessment and Plan: Continue home anti seizure meds (10) DVT prophylaxis Current Visit: Yes Status: Acute Assessment and Plan: SCDs. Eliquis on hold - Time Spent with Patient Total time spent is greater than 50% in coordination of care (as documented) at patient's floor/unit and/or counseling patient: Internal Medicine: Result - Labs CBC & Chem 7: 06/02/18 07:03 06/02/18 07:03 Labs: Short CBC 06/02/18 Range/Units 07:03 WBC 5.8 (4.3-11.1) K/mcL Hgb 9.2 L (11.5-15.4) g/dL Hct 29.4 L (35.3-44.9) % Plt Count 344 (140-400) K/mcL Neutrophils # 3.4 (1.6-8.9) K/mcL BMP 06/02/18 07:03 Sodium 142 Potassium 4.0 Chloride 109 H Carbon Dioxide 27 BUN 22 Creatinine 0.77 Glucose 105 Calcium 8.5 L - ABG Interpretation ABG results: PT/INR, D-dimer PT 13.6 Seconds (9.4-12.1) H 05/31/18 14:44 D-Dimer 1245 ng/mLFEU (0-500) H 05/31/18 17:55 - Impressions Impressions Abdomen/Pelvis CT 05/31/18 16:02 IMPRESSION: Large sigmoid rectal stool burden with circumferential wall thickening and surrounding fat stranding, all together suggesting stercoral proctitis. No evidence of perforation. Colonic diverticulosis without evidence of diverticulitis. Unchanged indeterminate left renal lesion. As mentioned previously, this could be further evaluated with renal ultrasound versus dedicated renal mass protocol CT or MRI depending on patient's life expectancy and comorbidities. Large right and moderate volume left pleural effusions. D/ : / 05/31/2018 17:39:34 Fausto Kenney / kassandra Interpreting Provider: Fausto Kenney Chest Ultrasound 06/01/18 08:04 IMPRESSION: Successful ultrasound guided right thoracentesis. Deferred left thoracentesis due to diminished patient alertness following the right thoracentesis. Left side can be performed at a later time. D/ / Samson Taylor / Samson Taylor Interpreting Provider: Samson Taylor Thoracentesis 06/01/18 08:04 IMPRESSION: Successful ultrasound guided right thoracentesis. Deferred left thoracentesis due to diminished patient alertness following the right thoracentesis. Left side can be performed at a later time. D/ / Samson Taylor / Samson Taylor Interpreting Provider: Samson Taylor Chest X-Ray 06/01/18 15:57 IMPRESSION: Near complete resolution right pleural effusion after thoracentesis. No evident pneumothorax. Improving ventilation right lung. Large amount of pleural and parenchymal opacity lower 2/3 left hemithorax unchanged over 24 hours. D/ / Portillo Antony MD / Portillo Antony MD Interpreting Provider: Portillo Antony MD Echocardiogram 06/01/18 18:08 Impressions: LVEF 30-35%. Mild asymmetric hypertrophy of the basal septum. Global left ventricular systolic dysfunction. Mild left ventricular diastolic dysfunction. Normal right ventricular structure and function. Mild mitral regurgitation. Mild tricuspid regurgitation. Mild pulmonary hypertension. Pleural effusion noted. Consider a repeat limited study with Definity to better evaluate LV function and rule out thrombus. Left Ventricular Wall Motion: Rest Echo Findings The apex, apical inferior, mid inferior, basal inferior, apical anterior, mid anterior, basal anterior, apical septal, mid inferior septal, basal inferior septal, apical lateral, mid anterior lateral, basal anterior lateral, mid anterior septal, mid inferior lateral, basal anterior septal and basal inferior lateral angulo were hypokinetic. Findings: Study Quality * Technically sub-optimal due to poor echocardiographic windows. ECG Findings * Sinus tachycardia. Left Ventricle * LVEF 30-35%. * Mild asymmetric hypertrophy of the basal septum. * Global left ventricular systolic dysfunction. * Mild left ventricular diastolic dysfunction. Right Ventricle * Normal right ventricular structure and function. Left Atrium * Moderately dilated left atrium. Right Atrium * Normal right atrial size. Aortic Valve * Aortic valve not well visualized. * No aortic regurgitation. * No aortic stenosis. Mitral Valve * Mild mitral annular calcification * Mild mitral regurgitation. * No mitral stenosis. Tricuspid Valve * Normal tricuspid valve structure. * Mild tricuspid regurgitation. * Mild pulmonary hypertension. Pulmonic Valve * Pulmonic valve is not well visualized. * No pulmonic regurgitation. Aorta * Normally sized aortic root. Pericardium * The pericardium appears normal. IVC * The IVC is not well evaluated. Pulmonary Artery * Pulmonary artery not well visualized. Pleural Effusion * Pleural effusion noted. Consult Discharge Plan - Plan Referrals: NONE,PCP [Primary Care Provider] - (2) Acute CHF Qualifiers: Heart failure type: systolic Qualified Code(s): I50.21 - Acute systolic (congestive) heart failure (4) Urinary tract infection Qualifiers: Encounter type: initial encounter Qualified Code(s): T83.510A - Infection and inflammatory reaction due to cystostomy catheter, initial encounter; N39.0 - Urinary tract infection, site not specified (8) Constipation Qualifiers: Qualified Code(s): K59.00 - Constipation, unspecified
--- NOTE | 2018-06-03 08:05 | Internal Med Progress Note ---
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 History was provided by at bedside as patient has dementia. He reports she has been progressively more short of breath for about 3 days and has been breathing with accessory muscles. She also been requiring more oxygen at the longterm. [facility] staff sent her over to the ER because her symptoms were getting worse. He also reports worsening lethargy. He reports no other acute symptoms - Exam Vitals: Temp Pulse Resp BP Pulse Ox 98.2 F 98 16 110/62 92 06/03/18 07:57 06/03/18 07:57 06/03/18 07:57 06/03/18 07:57 06/03/18 07:57 Exam: Gen - Awake, alert, oriented x 3, no acute distress HEENT - NCAT, PERRLA, EOMI, hearing grossly intact, oropharynx benign CV - RRR, normal S1 and S2, no M/R/G, no BLE edema Resp - decreased breath sounds GI - Soft, NT/ND, no masses, normal bowel sounds, Skin - Warm, dry, no rashes/lesions/ulcers Psych - Normal mood and affect, no depression or anxiety - Assessment and Plan (1) Acute respiratory failure with hypoxia Current Visit: Yes Status: Acute Assessment and Plan: Pt comes in with shortness of breath and bilateral crackles with pleural effusions likely secondary to acute CHF and community acquired pneumonia. Currently requiring 3L oxygen to keep sats above 93% Echo showed Ef 30-35%. Start on lasix IV BID. Monitor ins and outs Pt had thoracentesis done but unable to analyse fluid unfortunately due to lab rejecting the sample because it wasn't sent till 48hrs after the procedure Pt likely has CHF due to EF and clinical presentation (2) Acute CHF Current Visit: Yes Status: Acute Assessment and Plan: Pt has new acute systolic CHF with EF 30 -35%. Improving on diuresis with lasix Had IR drainage of pleural effusion in last 24hrs and has improved symptomatically. Will consult cardiology for possible ischemic cardiomyopathy workup, however due to age of patient , may not tolerate any aggresive intervention (3) Bilateral pleural effusion Current Visit: Yes Status: Acute Assessment and Plan: Likely due to pneumonia vs acute CHF. Thoracentesis done on right side Thoracentesis could not be done on left side due to possivble presence of mass. Per pulmonary, recommend conservative management with diuresis and antibiotics Palliative care consulted (4) Community acquired bacterial pneumonia Current Visit: Yes Status: Acute Assessment and Plan: CTA chest showed bilateral lower lobe consolidations. Start on ceftriaxone and azithromycin (5) Urinary tract infection Current Visit: Yes Status: Acute Assessment and Plan: Has multiple WBCs in urine and reports abdominal pain Start on ceftriaxone. 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 Will administer enema (9) Constipation Current Visit: Yes Status: Acute Assessment and Plan: Enema as needed (10) Seizures Current Visit: Yes Status: Acute Assessment and Plan: Continue home anti seizure meds (11) DVT prophylaxis Current Visit: Yes Status: Acute Assessment and Plan: SCDs. Eliquis on hold - Time Spent with Patient Total time spent is greater than 50% in coordination of care (as documented) at patient's floor/unit and/or counseling patient: Internal Medicine: Result - Labs CBC & Chem 7: 06/03/18 07:43 06/03/18 07:43 - ABG Interpretation ABG results: PT/INR, D-dimer PT 13.6 Seconds (9.4-12.1) H 05/31/18 14:44 D-Dimer 1245 ng/mLFEU (0-500) H 05/31/18 17:55 Consult Discharge Plan - Plan Referrals: NONE,PCP [Primary Care Provider] - (2) Acute CHF Qualifiers: Heart failure type: combined systolic and diastolic Qualified Code(s): I50.41 - Acute combined systolic (congestive) and diastolic (congestive) heart failure (5) Urinary tract infection Qualifiers: Encounter type: initial encounter Qualified Code(s): T83.510A - Infection and inflammatory reaction due to cystostomy catheter, initial encounter; N39.0 - Urinary tract infection, site not specified (9) Constipation Qualifiers: Qualified Code(s): K59.00 - Constipation, unspecified
[2018-06-03 08:33] LABS: Basophils % 0.5 %; Eosinophils # 0.2 K/mcL (0.0-0.6); Eosinophils % 3.7 %; Hematocrit 32.1 % (35.3-44.9); Hemoglobin 9.7 g/dL (11.5-15.4); Immature Granulocytes % 0.4 % (0-4); Lymphocytes # 1.1 K/mcL (0.6-4.6); Lymphocytes % 18.5 %; Mean Corpuscular HGB Conc 30.2 g/dL (31.6-35.5); Mean Corpuscular Hemoglobin 29.7 pg (28.0-33.3); Mean Corpuscular Volume 98.2 fL (83.0-100.0); Mean Platelet Volume 11.4 fL (9.4-12.4); Monocytes # 0.8 K/mcL (0.0-1.3); Monocytes % 13.5 %; Neutrophils # 3.6 K/mcL (1.6-8.9); Platelet Count 302 K/mcL (140-400); Red Blood Count 3.27 M/mcL (3.82-4.97); Red Cell Distribution Width 15.2 % (11.5-14.5); Segmented Neutrophils % 63.4 %
--- NOTE | 2018-06-03 08:42 | Pulmonology Consult Note ---
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 (2) Acute CHF Current Visit: Yes Status: Acute Patient presenting with heart failure will need salt water restriction and diuretics . Management according to primary team. Qualifiers: Heart failure type: combined systolic and diastolic Qualified Code(s): I50.41 - Acute combined systolic (congestive) and diastolic (congestive) heart failure (3) Pleural effusion Current Visit: Yes Status: Acute With EF of 30% presented with bilateral pleural effusion most likely this is transudate will wait for pleural fluid studies from the right sided thoracentesis , the left-sided pleural effusion is very small to tap I do not think tapping the pleural effusion will alter the management as most likely this is transudate plea pleural effusion lobar atelectasis due to underlying pleural effusion to continue diuresis and use incentive spirometry if possible. Pulmonary will sign off please call with questions if situation changes . If the pleural effusion reaccumulates will consider pleurex catheter for comfort measures . Thank you for the Consultation (4) Pleural effusion Current Visit: Yes Status: Acute History of Present Illness Consult date: 06/03/18 Requesting physician: Fransico Santiago Reason for consult: dyspnea, pleural effusion Chief complaint: shortness of breadth History of present illness: Mrs. 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 The imaging showed bilateral pleural effusions with ECHO showed 30-35% EF , IR guided thoracentesis done on monday the studies are pending , patient could not participate in review of systems . Past Med Surg Social Fam HX - Past Medical History Medical history: CVA, DVT, dementia, hyperlipidemia, seizures, other Additional medical history: anemia, benign brain tumors, osteoarthritis, catara cts, urine retention, cholelithiasis. Psychiatric history: no psych history - Past Surgical History Surgical History: non-contributory Additional surgical history: Surgical history unknown, patient unable to answer questions. - Social History Smoking Status: Never smoker Smokeless Tobacco Status: No Alcohol use: none Drug use: none - Family History Mother History Unknown: Yes Medications and Allergies Calcium Carbonate [Calcium] 600 mg PO BID 07/20/15 [History] Folic Acid 1 mg PO DAILY 07/20/15 [History] PHENobarbital [Phenobarbital] 32.4 mg PO TID 07/20/15 [History] Bisacodyl [Dulcolax] 10 mg RC DAILY 10/09/15 [History] Magnesium Hydroxide [Milk of Magnesia] 400 mg PO DAILY PRN 10/09/15 [History] Multivitamin [Multivitamins] 1 each PO DAILY 10/09/15 [History] Acetaminophen [Non-Aspirin] 650 mg PO Q6H 03/16/18 [History] Amlodipine Besylate 2.5 mg PO DAILY 03/16/18 [History] Guaifenesin [Tussin] 100 mg PO Q4H PRN 03/16/18 [History] Hydrocortisone/Pramoxine [Analpram Hc 1% Cream] 30 gm TP QID 03/16/18 [History] Lactulose 30 ml PO DAILY 03/16/18 [History] LevETIRAcetam [Keppra] 500 mg PO BID 03/16/18 [History] Polyethylene Glycol 3350 [MiraLAX] 17 gm PO DAILY PRN 03/16/18 [History] Sennosides/Docusate Sodium [Docusate Sodium-Senna Tablet] 1 tab PO BID 03/16/18 [History] Apixaban [Eliquis] 5 mg PO BID #60 tablet 03/28/18 [Rx] Omeprazole Magnesium 20 mg PO BID #60 capsule. 03/28/18 [Rx] Ascorbic Acid [Vitamin C with Lucy Hips] 500 mg PO DAILY 05/31/18 [History] Guaifenesin [Mucinex] 600 mg PO Q12H 05/31/18 [History] Allergy/AdvReac Type Severity Reaction Status Date / Time hydromorphone [From Dilaudid] Allergy Unknown See Verified 03/16/18 19:14 Comments phenytoin [From Dilantin] Allergy Unknown See Verified 03/16/18 19:14 Comments tetracycline [Tetracycline] Allergy Unknown See Verified 03/16/18 19:14 Comments ROS unobtainable: due to mental status All Systems: The remainder of the systems were reviewed and are negative Physical Examination Vital Signs: Vital Signs, Last 4 Hours Temp Pulse Resp BP Pulse Ox 06/03/18 07:57 98.2 F 98 16 110/62 92 06/03/18 04:54 98.9 F 100 16 96/50 94 Auscultation: bilateral: diminished breath sounds (bibasilar diminshed breadth sounds ) Extremities: edema unable to assess due to mental status other (unable to assess due to mental status ) Results - Laboratory Findings CBC and BMP: 06/03/18 07:43 06/03/18 07:43 PT/INR, D-dimer PT 13.6 Seconds (9.4-12.1) H 05/31/18 14:44 D-Dimer 1245 ng/mLFEU (0-500) H 05/31/18 17:55 Abnormal lab findings: Abnormal lab results RBC 3.27 M/mcL (3.82-4.97) L 06/03/18 07:43 Hgb 9.7 g/dL (11.5-15.4) L 06/03/18 07:43 Hct 32.1 % (35.3-44.9) L 06/03/18 07:43 MCHC 30.2 g/dL (31.6-35.5) L 06/03/18 07:43 RDW 15.2 % (11.5-14.5) H 06/03/18 07:43 PT 13.6 Seconds (9.4-12.1) H 05/31/18 14:44 D-Dimer 1245 ng/mLFEU (0-500) H 05/31/18 17:55 Chloride 109 mEq/L (98-107) H 06/02/18 07:03 BUN/Creatinine Ratio 29 (6-26) H 06/02/18 07:03 Calcium 8.5 mg/dL (8.6-10.3) L 06/02/18 07:03 AST 11 Units/L (13-39) L 05/31/18 14:44 Troponin I 0.05 ng/mL (< 0.04) H* 06/01/18 03:50 B-Natriuretic Peptide 3972 pg/mL (Less than 100) H 05/31/18 14:44 Serum Total Protein 6.2 g/dL (6.4-8.9) L 06/01/18 03:50 Albumin 3.1 g/dL (3.5-5.7) L 05/31/18 14:44 Amylase 25 Units/L (29-103) L 05/31/18 14:44 Urine Clarity Cloudy (Clear) A 05/31/18 15:30 Ur Specific [place] 1.026 (1.010-1.025) H 05/31/18 15:30 Urine Blood Large (Negative) H 05/31/18 15:30 Urine Nitrite Positive (Negative) A 05/31/18 15:30 Ur Leukocyte Esterase Moderate (Negative) H 05/31/18 15:30 Urine Microscopic RBC 15-30 per hpf (0-3) H 05/31/18 15:30 Urine Microscopic WBC 50-100 per hpf (0-3) H 05/31/18 15:30 Urine Bacteria Many per hpf (None-Few) H 05/31/18 15:30 Hyaline Casts Moderate per lpf (None-Few) H 05/31/18 15:30 Ur Culture Indicated? YES (NO) A 05/31/18 15:30 Stool Occult Bld Scrn Positive (Negative) A 05/31/18 16:07 - Microbiology Findings Microbiology Findings: Microbiology, Last 48 Hours 05/31/18 15:30 Urine Culture - Final Urine,Catheterized Escherichia coli - Clinical Findings Intake & Output: Intake & Output 06/02/18 06/03/18 06/03/18 23:59 07:59 15:59 Intake Total 0 / 0 Output Total 0 / 0 Balance 0 / 0 0 / 0 Weight 75.6 kg Consult Discharge Plan - Plan Referrals: NONE,PCP [Primary Care Provider] -
[2018-06-03 08:55] LABS: BUN/Creatinine Ratio 27 (6-26); Blood Urea Nitrogen 21 mg/dL (8-23); Calcium 8.5 mg/dL (8.6-10.3); Carbon Dioxide 28 mEq/L (23-29); Chloride 105 mEq/L (98-107); Glucose 105 mg/dL (70-105); Magnesium 1.9 mg/dL (1.6-2.6); Osmolality,Calculated 297 (280-300); Phosphorous 3.3 mg/dL (2.7-4.5); Potassium 3.5 mEq/L (3.5-5.1); Sodium 142 mEq/L (136-145); eGFR For Non-African Americans > 60 (> 60)
[2018-06-03] MEDS: Bisacodyl 10 MG RECTAL SUPPOSITORY RC SCH (09:47)
[2018-06-03] MEDS: amLODIPine 5 MG TABLET PO SCH (09:47)
[2018-06-03] MEDS: Azithromycin 500 MG in D5% in Water 250 ML IVPB SCH (09:48)
[2018-06-03] MEDS: Furosemide 40 MG/4 ML VIAL IVP SCH ×2 (09:48→16:35)
[2018-06-03] MEDS: levETIRAcetam 250 MG TABLET PO SCH (09:48)
[2018-06-03] MEDS: Sennosides/Docusate Sodium TABLET PO SCH (09:48)
[2018-06-03] MEDS: PHENobarbital 32.4 MG TABLET PO SCH ×2 (09:48→16:35)
[2018-06-03] MEDS: cefTRIAXone 1,000 MG in Water for inj. (sterile) 20 ML 10 ML IVP SCH (09:49)
[2018-06-03] MEDS ORDERED: Acetaminophen 325 MG TABLET PO PRN (12:16)
[2018-06-03] MEDS ORDERED: *HR* HYDROcodone/Acet 5/325 mg TABLET PO PRN (12:17)
--- NOTE | 2018-06-03 12:31 | Palliative - Consult Note ---
Date of Encounter: 06/03/18 Time of Encounter: 11:30 - Assessment and Plan (1) Pain Current Visit: Yes Status: Acute Assessment and plan: Patient reports generalized all over pain. Patient unable to rate on pain scale. Added Tylenol and Waves PRN. (2) Congestive heart failure Current Visit: Yes Status: Acute Assessment and plan: EF 30-35%. Cardiology consult pending. Qualifiers: Heart failure type: unspecified Heart failure chronicity: acute Qualified Code(s): I50.9 - Heart failure, unspecified (3) History of GI bleed Current Visit: Yes Status: Acute (4) Pleural effusion Current Visit: Yes Status: Acute Assessment and plan: IR and Pulmonology consult appreciated. Patient has already completed thoracentesis. (5) Goals of care, counseling/discussion Current Visit: Yes Status: Acute Assessment and plan: Met with patient, patient's and patient's son. Patient's previously completed state forms reflected DNRCC CODE status and order this admission for DNRCCA/DNI. Explained differentiation between the two types. Family desires patient to remain DNRCCA/DNI at this time. concerned for decubitus ulcer to sacrum, feels that last bedsore initiated on last admission. Desires patient to be turned every 2 hours. Family concerned as upon arrival patient complaining of pain, reviewed home medication regimen. Tylenol and Waves ordered for pain control; family pleased. Family reports considering Pulmonology and Cardiology recommendations remain pending, desire for Palliative Care to continue to follow for decision making support/hospice discussion, should family desire such services. Family plans for patient to return to [facility]. 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 Please turn patient every 2 hours. 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 Almeida is a 88 year old female Arrived to [place] ER via Ambulance from [facility] (senior care resident) on 05/31/18, for worsening lethargy, dyspnea, and abdominal pain times 3 days. PMH: CVA, DVT, Dementia, Hyperlipidemia, Seizures, and hx of GI Bleed. Chest x-ray showing Moderate CHF with cardiomegaly (new diagnosis) and bilateral pleural effusions. Patient admitted for CHF, UTI, and Hx of GI Bleed. Antibiotics were initiated and eloquis placed on hold. ECHO completed showing EF 30-35%. Interventional Radiology consulted and completed successful right thoracentesis (1L straw colored fluid removed), left thoracentesis recommended at a later time. Cardiology consult placed for cardiomyopathy; however, concern presents for tolerance of aggressive interventions; has not been seen as of the time of this note. Pulmonary consulted for pleural effusions and lung mass on left side. Continued workup pending for Cardiology and Pulmonary consultation. Palliative care consulted for goals of care/hospice. Patient lying in bed with no family present at bedside upon arrival for assessment. Patient alert and oriented times 1, per chart review at patients baseline. Patient reports generalized pain; however, is unable to rate on pain scale, no pain medication ordered. Patient denies anxiety, dyspnea, nausea, and vomiting. Patient able to answer in yes and no type responses. CC: Flo Feliciano MD - Time Spent with Patient Time: Total time spent is greater than 50% in coordination of care (as documented) at patient's floor/unit and/or counseling patient: Time with patient: 45 minutes Past Med Surg Social Fam HX - Past Medical History Medical history: CVA, DVT, dementia, hyperlipidemia, seizures, other Additional medical history: anemia, benign brain tumors, osteoarthritis, cataracts, urine retention, cholelithiasis. Psychiatric history: no psych history - Past Surgical History Surgical History: non-contributory Additional surgical history: Surgical history unknown, patient unable to answer questions. - Social History Smoking Status: Never smoker Smokeless Tobacco Status: No Alcohol use: none Drug use: none - Family History Mother History Unknown: Yes Medications and Allergies Calcium Carbonate [Calcium] 600 mg PO BID 07/20/15 [History] Folic Acid 1 mg PO DAILY 07/20/15 [History] PHENobarbital [Phenobarbital] 32.4 mg PO TID 07/20/15 [History] Bisacodyl [Dulcolax] 10 mg RC DAILY 10/09/15 [History] Magnesium Hydroxide [Milk of Magnesia] 400 mg PO DAILY PRN 10/09/15 [History] Multivitamin [Multivitamins] 1 each PO DAILY 10/09/15 [History] Acetaminophen [Non-Aspirin] 650 mg PO Q6H 03/16/18 [History] Amlodipine Besylate 2.5 mg PO DAILY 03/16/18 [History] Guaifenesin [Tussin] 100 mg PO Q4H PRN 03/16/18 [History] Hydrocortisone/Pramoxine [Analpram Hc 1% Cream] 30 gm TP QID 03/16/18 [History] Lactulose 30 ml PO DAILY 03/16/18 [History] LevETIRAcetam [Keppra] 500 mg PO BID 03/16/18 [History] Polyethylene Glycol 3350 [MiraLAX] 17 gm PO DAILY PRN 03/16/18 [History] Sennosides/Docusate Sodium [Docusate Sodium-Senna Tablet] 1 tab PO BID 03/16/18 [History] Apixaban [Eliquis] 5 mg PO BID #60 tablet 03/28/18 [Rx] Omeprazole Magnesium 20 mg PO BID #60 capsule. 03/28/18 [Rx] Ascorbic Acid [Vitamin C with Lucy Hips] 500 mg PO DAILY 05/31/18 [History] Guaifenesin [Mucinex] 600 mg PO Q12H 05/31/18 [History] Allergy/AdvReac Type Severity Reaction Status Date / Time hydromorphone [From Dilaudid] Allergy Unknown See Verified 03/16/18 19:14 Comments phenytoin [From Dilantin] Allergy Unknown See Verified 03/16/18 19:14 Comments tetracycline [Tetracycline] Allergy Unknown See Verified 03/16/18 19:14 Comments ROS unobtainable: due to mental status Palliative Care-Exam - Constitutional Vitals: Temp Pulse Resp BP Pulse Ox 98.4 F 96 16 119/73 97 06/03/18 12:16 06/03/18 12:16 06/03/18 12:16 06/03/18 12:16 06/03/18 12:16 General appearance: Present: cooperative, no acute distress, obese - Head Head Exam: Present: atraumatic. Absent: normal inspection (facial droop noted.) - Eye Eye exam: Present: normal appearance, conjuntiva pink. Absent: periorbital swelling, periorbital tenderness - ENT ENT exam: Present: mucous membranes moist, normal external ear exam - Expanded ENT Exam Mouth Exam: Absent: drooling - Neck Neck exam: Present: normal inspection - Respiratory Respiratory exam: Present: CTAB. Absent: accessory muscle use, respiratory distress - Cardiovascular Cardiovascular exam: Present: +S1, +S2 - Expanded Cardiovascular Exam Peripheral pulses: 2+: Radial (L), Radial (R), Posterior Tibialis (L), Posterior Tibialis (R), Dorsalis Pedis (L) PM, Dorsalis Pedis (R) PM - GI/Abdominal Exam GI/Abdominal exam: Present: hyperactive bowel sounds, soft. Absent: tenderness - Rectal Rectal exam: Present: deferred - Extremities Exam Extremities exam: Present: pedal edema (1+). Absent: calf tenderness - Neurological Exam Neurological exam: Present: alert, facial droop. Absent: altered, oriented X3, strengths equal and symetr throughout - Expanded Neurological Exam Patient oriented to: Present: person. Absent: place, time Coma Scale Eye Opening: To Voice Coma Scale Motor Response: Obeys Commands Coma Scale Verbal Response: Confused Coma Scale Total: 13 - Psychiatric Psychiatric exam: Present: flat affect - Skin Skin exam: Present: dry, warm. Absent: intact (Wound to sacrum.) Internal Medicine - CN: Reslt - Labs CBC & Chem 7: 06/03/18 07:43 06/03/18 07:43 Labs: Short CBC 06/03/18 Range/Units 07:43 WBC 5.7 (4.3-11.1) K/mcL Hgb 9.7 L (11.5-15.4) g/dL Hct 32.1 L (35.3-44.9) % Plt Count 302 (140-400) K/mcL Neutrophils # 3.6 (1.6-8.9) K/mcL BMP 06/03/18 07:43 Sodium 142 Potassium 3.5 Chloride 105 Carbon Dioxide 28 BUN 21 Creatinine 0.79 Glucose 105 Calcium 8.5 L - ABG Interpretation ABG results: PT/INR, D-dimer PT 13.6 Seconds (9.4-12.1) H 05/31/18 14:44 D-Dimer 1245 ng/mLFEU (0-500) H 05/31/18 17:55 Consult Discharge Plan - Plan Referrals: NONE,PCP [Primary Care Provider] - Palliative Quality Palliative Quality: Screen for Code Status: Yes, Screen for Goals of Care: Yes, Screen for Pain: Yes, If Pain Regimen Started, Initiate Bowel Regimen: Yes, Screen for Nausea/Vomitting: Yes Code Status: 05/31/18 18:01 Resuscitation Status: Active [RES] Routine Comment: Resuscitation Status: [id number] Palliative Scale - Palliative Performance Scale How ambulatory is this patient?: Totally bed bound What is patient's level of activity and evidence of disease?: Unable to do most activity, Extensive disease How much self-care assistance does patient require?: Total care How much oral intake does the patient have?: Normal or reduced What is this patient's level of consciousness?: Full or drowsy with or without confusion Palliative Performance Score: 30 %
--- NOTE | 2018-06-03 14:05 | Cardiology Consult Note ---
Date of Encounter: 06/03/18 Time of Encounter: 14:00 Assessment and Plan (1) Altered mental status, unspecified Current Visit: No Status: Chronic Per Cardiology: Resides at shelter with history of CVA and multiple brain surgeries with dementia. History obtained today from . Qualifiers: Altered mental status type: unspecified Qualified Code(s): R41.82 - Altered mental status, unspecified (2) Acute CHF Current Visit: Yes Status: Acute Per Cardiology: Present with worsening short of breath, elevated BNP, and pleural effusions. Seen by pulmonology. Echo showed EF 3035%, appears to be new finding. Agree with IV diuresis. We will discontinue Norvasc and start low-dose Toprol XL. Discussed with , no further ischemic evaluation recommended based on the morbid conditions, advanced age, and current status of DNR/CCA/DNI. Palliative care following. Cardiology will sign off. All questions answered. Qualifiers: Heart failure type: combined systolic and diastolic Qualified Code(s): I50.41 - Acute combined systolic (congestive) and diastolic (congestive) heart failure (3) Bilateral pleural effusion Current Visit: Yes Status: Acute Per Cardiology: Management per pulmonology. (4) History of GI bleed Current Visit: Yes Status: Acute Per Cardiology: H&H stable. Occult stool positive for blood. Will avoid adding aspirin at this point. Discussion w patient/family: The assessment and plan as outlined above was discussed with the patient and/or family members who expressed understanding and agreement. All questions were answered. Thank you for involving us in the care of your patient. Please call with any questions. History of Present Illness Consult date: 06/03/18 Consult reason: Decreased EF Chief complaint: Increased short of breath and abdominal pain. History of present illness: Previous medical records reviewed: "Ms. 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 History was provided by at bedside as patient has dementia. He reports she has been progressively more short of breath for about 3 days and has been breathing with accessory muscles. She also been requiring more oxygen at the shelter. halfway staff sent her over to the ER because her symptoms were getting worse. He also reports worsening lethargy. He reports no other acute symptoms" Apparently echo ordered during hospital stay with subsequent EF decreased and no w cardial G consult for recommendations. Patient seen with at bedside. Patient unable to communicate. Above information confirmed with . He denies any new updates. Denies any awareness of previous cardiomyopathy. Past Med Surg Social Fam HX - Past Medical History Source: old records reviewed, obtained from family Medical history: CVA, DVT, dementia, hyperlipidemia, seizures, other Additional medical history: anemia, benign brain tumors, osteoarthritis, catarac ts, urine retention, cholelithiasis. Psychiatric history: no psych history - Past Surgical History Surgical History: non-contributory Additional surgical history: Surgical history unknown, patient unable to answer questions. - Social History Smoking Status: Never smoker Smokeless Tobacco Status: No Alcohol use: none Drug use: none - Family History Mother History Unknown: Yes Medications and Allergies Calcium Carbonate [Calcium] 600 mg PO BID 07/20/15 [History] Folic Acid 1 mg PO DAILY 07/20/15 [History] PHENobarbital [Phenobarbital] 32.4 mg PO TID 07/20/15 [History] Bisacodyl [Dulcolax] 10 mg RC DAILY 10/09/15 [History] Magnesium Hydroxide [Milk of Magnesia] 400 mg PO DAILY PRN 10/09/15 [History] Multivitamin [Multivitamins] 1 each PO DAILY 10/09/15 [History] Acetaminophen [Non-Aspirin] 650 mg PO Q6H 03/16/18 [History] Amlodipine Besylate 2.5 mg PO DAILY 03/16/18 [History] Guaifenesin [Tussin] 100 mg PO Q4H PRN 03/16/18 [History] Hydrocortisone/Pramoxine [Analpram Hc 1% Cream] 30 gm TP QID 03/16/18 [History] Lactulose 30 ml PO DAILY 03/16/18 [History] LevETIRAcetam [Keppra] 500 mg PO BID 03/16/18 [History] Polyethylene Glycol 3350 [MiraLAX] 17 gm PO DAILY PRN 03/16/18 [History] Sennosides/Docusate Sodium [Docusate Sodium-Senna Tablet] 1 tab PO BID 03/16/18 [History] Apixaban [Eliquis] 5 mg PO BID #60 tablet 03/28/18 [Rx] Omeprazole Magnesium 20 mg PO BID #60 capsule. 03/28/18 [Rx] Ascorbic Acid [Vitamin C with Lucy Hips] 500 mg PO DAILY 05/31/18 [History] Guaifenesin [Mucinex] 600 mg PO Q12H 05/31/18 [History] Allergy/AdvReac Type Severity Reaction Status Date / Time hydromorphone [From Dilaudid] Allergy Unknown See Verified 03/16/18 19:14 Comments phenytoin [From Dilantin] Allergy Unknown See Verified 03/16/18 19:14 Comments tetracycline [Tetracycline] Allergy Unknown See Verified 03/16/18 19:14 Comments ROS unobtainable: due to mental status All Systems Review: The remainder of the systems were reviewed and are negative Physical Examination Vital Signs, Last 4 Hours Temp Pulse Resp BP Pulse Ox 06/03/18 12:16 98.4 F 96 16 119/73 97 General: No Apparent Distress HEENT: Atraumatic, Normocephaly Cardiac: Reg Rate and Rhythm, Normal S1 and S2, No Murmur Lungs: Normal Breath Sounds, Other (Diminished bilateral bases) Neuro: Other (Minimally responsive, history of dementia and CVA with multiple brain surgeries) Abdomen: Soft, Non-Tender Skin: No rashes noted on visualized skin Extremities: No Edema, Normal Pulses Results 06/03/18 07:43 06/03/18 07:43 Lab Results Laboratory Tests 05/31/18 05/31/18 05/31/18 14:44 14:44 15:30 Hgb Hct Creatinine Est GFR (Non-Af Amer) Troponin I 0.09 H* B-Natriuretic Peptide 3972 H Urine Blood Large H Urine Nitrite Positive A Ur Culture Indicated? YES A Stool Occult Bld Scrn 05/31/18 05/31/18 06/01/18 16:07 21:52 03:50 Hgb Hct Creatinine Est GFR (Non-Af Amer) Troponin I 0.08 H* 0.05 H* B-Natriuretic Peptide Urine Blood Urine Nitrite Ur Culture Indicated? Stool Occult Bld Scrn Positive A 06/03/18 06/03/18 07:43 07:43 Hgb 9.7 L Hct 32.1 L Creatinine 0.79 Est GFR (Non-Af Amer) > 60 Troponin I B-Natriuretic Peptide Urine Blood Urine Nitrite Ur Culture Indicated? Stool Occult Bld Scrn Active Medications Acetaminophen (Tylenol) 650 mg PO Q6HR PRN PRN Reason: mild to moderate pain Stop: 12/03/18 12:17 Last Admin: 06/03/18 12:53 Dose: 650 mg Hydrocodone Bitart/Acetaminophen ([place] 5-325 Mg) 1 tab PO Q6HR PRN PRN Reason: Severe Pain Stop: 12/03/18 12:18 Bisacodyl (Dulcolax) 10 mg RC DAILY JEAN CLAUDE Stop: 12/01/18 09:01 Last Admin: 06/03/18 09:47 Dose: 10 mg Furosemide (Lasix) 40 mg IVP BIDDIURETIC JEAN CLAUDE Stop: 12/01/18 08:01 Last Admin: 06/03/18 09:48 Dose: 40 mg Hydrocortisone/Pramoxine (Epifoam) 1 appl TP QID JEAN CLAUDE Stop: 11/30/18 21:01 Last Admin: 06/03/18 13:06 Dose: Not Given Ceftriaxone Sodium 1,000 mg/ (Sterile Water) 10 mls @ 600 mls/hr IVP DAILY JEAN CLAUDE Stop: 12/01/18 09:01 Last Admin: 06/03/18 09:49 Dose: 600 mls/hr Azithromycin 500 mg/ Dextrose 250 mls @ 252 mls/hr IVPB Q24H JEAN CLAUDE Stop: 12/01/18 09:01 Last Admin: 06/03/18 09:48 Dose: 252 mls/hr Levetiracetam (Keppra) 500 mg PO BID JEAN CLAUDE Stop: 11/30/18 21:01 Last Admin: 06/03/18 09:48 Dose: 500 mg Magnesium Hydroxide (Milk Of Magnesia Conc) 10 ml PO DAILY PRN PRN Reason: Constipation Metoprolol Succinate (Toprol Xl) 12.5 mg PO DAILY [facility] Stop: 12/04/18 09:01 Naloxone HCl (Narcan) 0.4 mg IVP Q2MIN PRN PRN Reason: SEE COMMENTS Stop: 11/30/18 18:02 Omeprazole (Prilosec) 20 mg PO BIDAC JEAN CLAUDE Stop: 12/01/18 07:31 Last Admin: 06/03/18 09:47 Dose: 20 mg Phenobarbital (Phenobarbital) 32.4 mg PO TID JEAN CLAUDE Stop: 11/30/18 21:01 Last Admin: 06/03/18 09:48 Dose: 32.4 mg Polyethylene Glycol (Miralax) 17 gm PO DAILY PRN PRN Reason: BOWEL MOVEMENT Stop: 11/30/18 18:04 Senna/Docusate Sodium (Senna Plus) 1 each PO BID JEAN CLAUDE; Protocol Stop: 11/30/18 21:01 Last Admin: 06/03/18 09:48 Dose: 1 each ITS Impressions Chest X-Ray 05/31/18 14:10 IMPRESSION: Moderate CHF with cardiomegaly. Bilateral layering pleural effusions. D/ / Primo Corea MD / Primo Corea MD Interpreting Provider: Primo Corea MD Abdomen/Pelvis CT 05/31/18 16:02 IMPRESSION: Large sigmoid rectal stool burden with circumferential wall thickening and surrounding fat stranding, all together suggesting stercoral proctitis. No evidence of perforation. Colonic diverticulosis without evidence of diverticulitis. Unchanged indeterminate left renal lesion. As mentioned previously, this could be further evaluated with renal ultrasound versus dedicated renal mass protocol CT or MRI depending on patient's life expectancy and comorbidities. Large right and moderate volume left pleural effusions. D/ : / 05/31/2018 17:39:34 Fausto Kenney / kassandra Interpreting Provider: Fausto Kenney Chest CTA 05/31/18 18:52 IMPRESSION: No evidence of pulmonary embolus although distal segmental and subsegmental pulmonary arteries are poorly evaluated. Moderate to large right and small left pleural effusions. Partial consolidation in the lower lobes which may be related to atelectasis. Interlobular septal wall thickening and scattered ground-glass attenuation within the upper lobes likely related to edema. D/ / Macie Harris MD / Macie Harris MD Interpreting Provider: Macie Harris MD Chest Ultrasound 01/04/19 08:04 IMPRESSION: Successful ultrasound guided right thoracentesis. Deferred left thoracentesis due to diminished patient alertness following the right thoracentesis. Left side can be performed at a later time. D/ / Samson Taylor / Samson Taylor Interpreting Provider: Samson Taylor Thoracentesis 06/01/18 08:04 IMPRESSION: Successful ultrasound guided right thoracentesis. Deferred left thoracentesis due to diminished patient alertness following the right thoracentesis. Left side can be performed at a later time. D/ / Samson Taylor / Samson Taylor Interpreting Provider: Samson Taylor Chest X-Ray 06/01/18 15:57 IMPRESSION: Near complete resolution right pleural effusion after thoracentesis. No evident pneumothorax. Improving ventilation right lung. Large amount of pleural and parenchymal opacity lower 2/3 left hemithorax unchanged over 24 hours. D/ / Portillo Antony MD / Portillo Antony MD Interpreting Provider: Portillo Antony MD Echocardiogram 06/01/18 18:08 Impressions: LVEF 30-35%. Mild asymmetric hypertrophy of the basal septum. Global left ventricular systolic dysfunction. Mild left ventricular diastolic dysfunction. Normal right ventricular structure and function. Mild mitral regurgitation. Mild tricuspid regurgitation. Mild pulmonary hypertension. Pleural effusion noted. Consider a repeat limited study with Definity to better evaluate LV function and rule out thrombus. Left Ventricular Wall Motion: Rest Echo Findings The apex, apical inferior, mid inferior, basal inferior, apical anterior, mid anterior, basal anterior, apical septal, mid inferior septal, basal inferior septal, apical lateral, mid anterior lateral, basal anterior lateral, mid anterior septal, mid inferior lateral, basal anterior septal and basal inferior lateral angulo were hypokinetic. Findings: Study Quality * Technically sub-optimal due to poor echocardiographic windows. ECG Findings * Sinus tachycardia. Left Ventricle * LVEF 30-35%. * Mild asymmetric hypertrophy of the basal septum. * Global left ventricular systolic dysfunction. * Mild left ventricular diastolic dysfunction. Right Ventricle * Normal right ventricular structure and function. Left Atrium * Moderately dilated left atrium. Right Atrium * Normal right atrial size. Aortic Valve * Aortic valve not well visualized. * No aortic regurgitation. * No aortic stenosis. Mitral Valve * Mild mitral annular calcification * Mild mitral regurgitation. * No mitral stenosis. Tricuspid Valve * Normal tricuspid valve structure. * Mild tricuspid regurgitation. * Mild pulmonary hypertension. Pulmonic Valve * Pulmonic valve is not well visualized. * No pulmonic regurgitation. Aorta * Normally sized aortic root. Pericardium * The pericardium appears normal. IVC * The IVC is not well evaluated. Pulmonary Artery * Pulmonary artery not well visualized. Pleural Effusion * Pleural effusion noted. - Imaging and Cardiology Echo: report reviewed Consult Discharge Plan - Plan Referrals: NONE,PCP [Primary Care Provider] -
--- NOTE | 2018-06-03 15:27 | Discharge Summary ---
Orders not resulted at time of discharge: Pending orders 06/04/18 04:00 Basic Metabolic Panel AM 0400 CBC [Complete Blood Count] [HEME] AM 0400 Magnesium AM 0400 Phosphorous AM 0400 06/05/18 04:00 Basic Metabolic Panel AM 0400 CBC [Complete Blood Count] [HEME] AM 0400 Magnesium AM 0400 Phosphorous AM 0400 06/06/18 04:00 Basic Metabolic Panel AM 0400 CBC [Complete Blood Count] [HEME] AM 0400 Magnesium AM 0400 Phosphorous AM 0400 06/07/18 04:00 Basic Metabolic Panel AM 0400 CBC [Complete Blood Count] [HEME] AM 0400 Magnesium AM 0400 Phosphorous AM 0400 Date of Encounter: 06/03/18 Time of Encounter: 15:00 - Discharge Diagnosis (1) Acute respiratory failure with hypoxia Priority: Primary Status: Acute Assessment and Plan: 88 year old female with pmh 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 History was provided by at bedside as patient has dementia. He reports she has been progressively more short of breath for about 3 days and has been breathing with accessory muscles. She also been requiring more oxygen at the detention. halfway staff sent her over to the ER because her symptoms were getting worse. He also reports worsening lethargy. He reports no other acute symptoms. She was assessed with h shortness of breath and bilateral crackles with pleural effusions likely secondary to acute CHF and community acquired pneumonia. Chest xray showed bilateral pleural effusions and a possible lung mass on the left side. She had an Echo done showing EF 30-35%. She was started on lasix IV BID and broad spectrum antibiotics and had a noticeable improvement. She had a thoracentesis done showing a likely transudate based on LDH only. The rest of the pleural fluid studies couldn't be completed because sample was sent 48hrs after procedure. She was seen by pulmonary and cardio for possible lung mass and new ischemic cardiomyopathy respectively. Based on her DNR status and on discussion with family, they wanted no aggressive intervention such as a bronchoscopy or cardiac catheterization. She had improved symptomatically and was therefore discharged back to the detention on lasix, beta blockers and an belkys inhibitor and a course of antibiotics. 35 minutes was spent discharging this patient (2) Acute CHF Priority: Primary Status: Acute Qualifiers: Heart failure type: systolic Qualified Code(s): I50.21 - Acute systolic (congestive) heart failure (3) Bilateral pleural effusion Priority: Primary Status: Acute (4) Community acquired bacterial pneumonia Priority: Primary Status: Acute (5) Urinary tract infection Priority: Primary Status: Acute Qualifiers: Encounter type: initial encounter Qualified Code(s): T83.510A - Infection and inflammatory reaction due to cystostomy catheter, initial encounter; N39.0 - Urinary tract infection, site not specified (6) Hx of deep venous thrombosis Priority: Primary Status: Acute (7) 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 Priority: Primary Status: Acute (8) Proctitis Priority: Primary Status: Acute (9) Constipation Priority: Primary Status: Acute Qualifiers: Qualified Code(s): K59.00 - Constipation, unspecified (10) Seizures Priority: Primary Status: Acute (11) DVT prophylaxis Priority: Primary Status: Acute Hospital course: Ms. Almeida is a 88 year old female - Time Spent with Patient Total time spent providing and/or coordinating discharge services: - Discharge Medications Prescriptions: Furosemide [Lasix] 40 mg PO BID #60 tab levoFLOXacin [Levaquin] 750 mg PO DAILY #3 tablet Lisinopril [Zestril] 2.5 mg PO DAILY #30 tablet Metoprolol XL (24 HR) Succ [Toprol Xl] 12.5 mg PO DAILY #30 tab.er.24h Home Medications: Calcium Carbonate [Calcium] 600 mg PO BID 07/20/15 [History] Folic Acid 1 mg PO DAILY 07/20/15 [History] PHENobarbital [Phenobarbital] 32.4 mg PO TID 07/20/15 [History] Bisacodyl [Dulcolax] 10 mg RC DAILY 10/09/15 [History] Magnesium Hydroxide [Milk of Magnesia] 400 mg PO DAILY PRN 10/09/15 [History] Multivitamin [Multivitamins] 1 each PO DAILY 10/09/15 [History] Acetaminophen [Non-Aspirin] 650 mg PO Q6H 03/16/18 [History] Guaifenesin [Tussin] 100 mg PO Q4H PRN 03/16/18 [History] Hydrocortisone/Pramoxine [Analpram Hc 1% Cream] 30 gm TP QID 03/16/18 [History] Lactulose 30 ml PO DAILY 03/16/18 [History] LevETIRAcetam [Keppra] 500 mg PO BID 03/16/18 [History] Polyethylene Glycol 3350 [MiraLAX] 17 gm PO DAILY PRN 03/16/18 [History] Sennosides/Docusate Sodium [Docusate Sodium-Senna Tablet] 1 tab PO BID 03/16/18 [History] Apixaban [Eliquis] 5 mg PO BID #60 tablet 03/28/18 [Rx] Omeprazole Magnesium 20 mg PO BID #60 capsule.dr 03/28/18 [Rx] Ascorbic Acid [Vitamin C with Lucy Hips] 500 mg PO DAILY 05/31/18 [History] Guaifenesin [Mucinex] 600 mg PO Q12H 05/31/18 [History] Furosemide [Lasix] 40 mg PO BID #60 tab 06/03/18 [Rx] Lisinopril [Zestril] 2.5 mg PO DAILY #30 tablet 06/03/18 [Rx] Metoprolol XL (24 HR) Succ [Toprol Xl] 12.5 mg PO DAILY #30 tab.er.24h 06/03/18 [Rx] levoFLOXacin [Levaquin] 750 mg PO DAILY #3 tablet 06/03/18 [Rx] Allergies/Adverse Reactions: Allergy/AdvReac Type Severity Reaction Status Date / Time hydromorphone [From Dilaudid] Allergy Unknown See Verified 03/16/18 19:14 Comments phenytoin [From Dilantin] Allergy Unknown See Verified 03/16/18 19:14 Comments tetracycline [Tetracycline] Allergy Unknown See Verified 03/16/18 19:14 Comments Date of admission: 05/31/18 20:55 Primary care physician: PCP NONE Consults: 06/01/18 00:16 Consult to Pointer Helper [CONS] Routine Reason for SW Consult: Patient from [facility]. DC planning. 06/02/18 08:20 Consult to Cardiology [CONS] Routine Comment: Consulting Provider: Cardiology Karli Reason for Consult: New cardiomyopathy EF 30 % Call Completed: No 06/03/18 08:03 Consult to Pulmonology [CONS] Routine Consulting Provider: Pulm [facility] Karli Reason for Consult: shortness of breath with left sided pleural density/ effusion. Possible thoracentesis Call Completed: Yes 06/03/18 08:34 Consult to Palliative Care [CONS] Routine Comment: Consulting Provider: Palliative Care Karli Reason for Consult: new chf, query lung mass on left side (pulm to assess). [facility] goals of care/ hospice. detention resident Call Completed: No - Constitutional Vitals: Temp Pulse Resp BP Pulse Ox 98.4 F 96 16 119/73 97 06/03/18 12:16 06/03/18 12:16 06/03/18 12:16 06/03/18 12:16 06/03/18 12:16 General appearance: Present: A&O X 1, pleasant Exam: Gen - Awake, alert, oriented x 3, no acute distress HEENT - NCAT, PERRLA, EOMI, hearing grossly intact, oropharynx benign CV - RRR, normal S1 and S2, no M/R/G, no BLE edema Resp - decreased breath sounds GI - Soft, NT/ND, no masses, normal bowel sounds, Skin - Warm, dry, no rashes/lesions/ulcers Psych - Normal mood and affect, no depression or anxiety - Patient Status Disposition: Transfer SNF Condition: Fair - Discharge Instructions Follow Up With: NONE,PCP [Primary Care Provider] - Forms: ED Satisfaction Letter
[2018-06-03 15:36] VITALS: BP 107/56
[2018-06-03 16:17] LABS: Amylase,Pleural Fluid 12 Units/L (No Ref Range); LDH,Pleural Fluid 64 Units/L (No Ref Range)
--- NOTE | 2018-06-03 16:33 | Physician Discharge Referral ---
- Diagnosis (1) Acute respiratory failure with hypoxia Priority: Primary Status: Acute (2) Acute CHF Priority: Primary Status: Acute (3) Bilateral pleural effusion Priority: Primary Status: Acute (4) Community acquired bacterial pneumonia Priority: Primary Status: Acute (5) Urinary tract infection Priority: Primary Status: Acute (6) Hx of deep venous thrombosis Priority: Primary Status: Acute (7) 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 Priority: Primary Status: Acute (8) Proctitis Priority: Primary Status: Acute (9) Constipation Priority: Primary Status: Acute (10) Seizures Priority: Primary Status: Acute (11) DVT prophylaxis Priority: Primary Status: Acute - Transfer Medications Prescriptions: Furosemide [Lasix] 40 mg PO BID #60 tab levoFLOXacin [Levaquin] 750 mg PO DAILY #3 tablet Lisinopril [Zestril] 2.5 mg PO DAILY #30 tablet Metoprolol XL (24 HR) Succ [Toprol Xl] 12.5 mg PO DAILY #30 tab.er.24h Home Medications: Calcium Carbonate [Calcium] 600 mg PO BID 07/20/15 [History] Folic Acid 1 mg PO DAILY 07/20/15 [History] PHENobarbital [Phenobarbital] 32.4 mg PO TID 07/20/15 [History] Bisacodyl [Dulcolax] 10 mg RC DAILY 10/09/15 [History] Magnesium Hydroxide [Milk of Magnesia] 400 mg PO DAILY PRN 10/09/15 [History] Multivitamin [Multivitamins] 1 each PO DAILY 10/09/15 [History] Acetaminophen [Non-Aspirin] 650 mg PO Q6H 03/16/18 [History] Guaifenesin [Tussin] 100 mg PO Q4H PRN 03/16/18 [History] Hydrocortisone/Pramoxine [Analpram Hc 1% Cream] 30 gm TP QID 03/16/18 [History] Lactulose 30 ml PO DAILY 03/16/18 [History] LevETIRAcetam [Keppra] 500 mg PO BID 03/16/18 [History] Polyethylene Glycol 3350 [MiraLAX] 17 gm PO DAILY PRN 03/16/18 [History] Sennosides/Docusate Sodium [Docusate Sodium-Senna Tablet] 1 tab PO BID 03/16/18 [History] Apixaban [Eliquis] 5 mg PO BID #60 tablet 03/28/18 [Rx] Omeprazole Magnesium 20 mg PO BID #60 capsule. 03/28/18 [Rx] Ascorbic Acid [Vitamin C with Lucy Hips] 500 mg PO DAILY 05/31/18 [History] Guaifenesin [Mucinex] 600 mg PO Q12H 05/31/18 [History] Furosemide [Lasix] 40 mg PO BID #60 tab 06/03/18 [Rx] Lisinopril [Zestril] 2.5 mg PO DAILY #30 tablet 06/03/18 [Rx] Metoprolol XL (24 HR) Succ [Toprol Xl] 12.5 mg PO DAILY #30 tab.er.24h 06/03/18 [Rx] levoFLOXacin [Levaquin] 750 mg PO DAILY #3 tablet 06/03/18 [Rx] Allergies/Adverse Reactions: 3 Allergy/AdvReac Type Severity Reaction Status Date / Time hydromorphone [From Dilaudid] Allergy Unknown See Verified 03/16/18 19:14 Comments phenytoin [From Dilantin] Allergy Unknown See Verified 03/16/18 19:14 Comments tetracycline [Tetracycline] Allergy Unknown See Verified 03/16/18 19:14 Comments - Respiratory Orders Smoking Cessation: Smoking cessation has been advised. For more information, call the [place] Tobacco Quit Line at 5-384-EFSJNOW. - Advance Directives Code Status: DNR-Arrest/Don't Intubate - Mobility Orders Ambulate CERTIFICATION: I certify that the transfer of the above named patient to an Extended Care Facility is necessary for the continuing treatment of the diagnosis listed. The above information is true and accurate reflection of patient's current condition. Confidential - Redisclosure prohibited without a patient's written consent.
[2018-06-04] MEDS ORDERED: Metoprolol XL (24 HR) Succ 25 MG TAB.ER.24H PO SCH (09:00)
== END 2018-06-03 17:19 | DRG 291 ==
LOC: EMEROOARM 13:48 → 2ANU 20:55
PROVIDERS: ADMIT Internal Medicine; ATTEND Internal Medicine